=== PATIENT | male | born 1965 | race African-American/Black ===

== ENCOUNTER → 2017-05-22 | Outpatient (CLI) | payer BC | END | disposition home or self-care (01) | LOC: US 14:40 | DX: M79.89 Other specified soft tissue disorders (principal) | CPT/HCPCS: 93971 ==

== ENCOUNTER → 2018-01-14 | Outpatient (CLI) | payer BC ==
[2017-08-04 10:29] VITALS: BP 150/77
[~2018-01-14] MED LIST: ASPI325T8 PO; ATOR20TA58 PO; CARV6.252 PO; CEFP100T PO; DULA0.75 SQ; GABA-585 PO; GABA300C8 PO; GADOBUTROL 10 MMOL/10 ML VIAL IV ONE; GLIM2TAB PO; LOSA1TAB25 PO; PROAIR HFA8.5 GM IH; SITA1TAB11 PO; SITA1TAB7 PO
[2018-01-14 15:46] LABS: CREATININE 1.5 mg/dL (0.7-1.3); GFR 59.2
--- NOTE | 2018-01-14 16:58 | RAD ---
EXAMINATION: Magnetic resonance imaging (MRI) of the brain and orbits without and with contrast 01/14/2018 2:45 PM HISTORY: Left eye visual deficits. History of fall,. Left-sided occipital headaches. TECHNIQUE: Multiplanar multi-weighted MRI of the brain and orbits was performed without and with intravenous contrast using the brain and orbits protocol. Contrast information: 10 mL Gadolinium based contrast COMPARISON: None available. FINDINGS: The scalp and calvarium are normal. The superior sagittal sinus demonstrates normal venous flow. The corpus callosum is normal in shape and signal intensity. The posterior fossa is unremarkable. The pituitary and sella are normal. The brainstem and craniocervical junction are unremarkable. Globes are spherical and contour. No evidence for lens dislocation. There is mild straightening of the optic nerves. Optic nerves and nerve sheath complexes appear normal. No abnormal signal intensity is visualized. Extraocular muscles are intact. There is no suspicious enhancement identified. Optic chiasm is normal in appearance. No intraconal or extraconal masses are visualized. Diffusion weighted images reveal no hyperintensities to suggest acute cerebral infarction. The susceptibility weighted sequences reveal no evidence of acute or chronic hemorrhage. The ventricles are normal in size and position without evidence of hydrocephalus. Few scattered foci of T2/FLAIR signal hyperintensity in the periventricular white matter is compatible with age-related degenerative changes. There are no areas of abnormal contrast enhancement. The paranasal sinuses are normal. Mild mucosal thickening is noted involving the maxillary sinuses and ethmoid air cells. Normal flow voids are demonstrated in the carotid arteries and basilar artery. IMPRESSION: 1. No evidence for acute or subacute ischemia. 2. No significant abnormalities identified involving the orbits. Electronically signed by: Lia Jacob MD (01/14/2018 4:55 PM) [facility]
== END | disposition home or self-care (01) ==
LOC: MRI 14:53
PROVIDERS: ATTEND Internal Medicine Hematology & Oncology
DX: M54.81 Occipital neuralgia (principal); J32.2 Chronic ethmoidal sinusitis; I13.0 Hypertensive heart and chronic kidney disease with heart failure and stage 1 through stage 4 chronic kidney disease, or unspecified chronic kidney disease; E11.22 Type 2 diabetes mellitus with diabetic chronic kidney disease; I50.22 Chronic systolic (congestive) heart failure; N18.2 Chronic kidney disease, stage 2 (mild); Z87.891 Personal history of nicotine dependence; Z86.2 Personal history of diseases of the blood and blood-forming organs and certain disorders involving the immune mechanism; Z85.6 Personal history of leukemia
CPT/HCPCS: 36415; 70543; 70553; 82565; A9585

== ENCOUNTER 2018-10-23 08:20 | Outpatient (CLI) | payer BC ==
[2018-10-23] VITALS (17 sets, daily range): BP systolic 129–146; BP diastolic 71–91
[~2018-10-23] VITALS: Ht 180.3 cm; Wt 113.4 kg
[~2018-10-23 08:20] MED LIST changes: +ALBU2.5V8 IH; +CARV6.2511 PO; -CARV6.252 PO; +GABA300C18 PO; -GABA300C8 PO; -GADOBUTROL 10 MMOL/10 ML VIAL IV ONE; -PROAIR HFA8.5 GM IH
[2018-10-23 09:55] LABS: PROTHROMBIN TIME PATIENT 12.7 SEC (11.7-14.0)
[2018-10-23 10:00] LABS: CALCIUM 9.1 mg/dL (8.5-10.1); CREATININE 1.9 mg/dL (0.7-1.3); GFR 44.9; POTASSIUM 4.5 mmol/L (3.5-5.1)
--- NOTE | 2018-10-23 10:17 | CARD ---
MR#: [id number] Date of Study: 10/23/2018 Ordering Physician: MANNY DAVENPORT, Referring Physician: MANNY DAVENPORT, Tech: Regi Barnett APPROVED REPORT EXAM: Two-dimensional and M-mode echocardiogram with Doppler and color Doppler. Other Information Quality : GoodHR: 76bpm INDICATION Hypertension/HCVD RISK FACTORS Hypertension Hyperlipidemia Diabetes 2D DIMENSIONS RVDd2.9 (2.9-3.5cm)Left Atrium(2D)4.3 (1.6-4.0cm) IVSd1.2 (0.7-1.1cm)Aortic Root(2D)3.2 (2.0-3.7cm) LVDd5.9 (3.9-5.9cm)LVOT Diameter2.2 (1.8-2.4cm) PWd1.3 (0.7-1.1cm)LVDs4.9 (2.5-4.0cm) FS (%) 18.3 %SV65.6 ml LVEF(%)37.3 (>50%) Aortic Valve AoV Peak Clayton.135.7cm/sAoV VTI26.0cm AO Peak GR.7.4mmHgLVOT Peak Clayton.106.0cm/s AO Mean GR.5mmHgAVA (VMAX)3.08cm2 Mitral Valve MV E Cworubtg93.5cm/sMV DECEL SURT502dc MV A Rjggvcek53.5cm/sE/A Ratio0.8 Pulmonary Valve PV Peak Yyoupgpf88.5cm/s Tricuspid Valve TR P. Qvalagal742vt/sRAP WXATXTQP8ljRt TR Peak Gr.43mxOnRNRU11ipPp Pulmonary Vein S1 Yflsvjcz36.3cm/sD2 Ahyrntoj08.3cm/s PVa bxczcsci708mjgo LEFT VENTRICLE The Left Ventricle is borderline dilated. There is moderate concentric left ventricular hypertrophy. The left ventricular systolic function is moderately decreased. EF 35% There is mild global hypokines is of the left ventricle. Transmitral Doppler flow pattern is Grade I-abnormal relaxation pattern. RIGHT VENTRICLE The right ventricle is normal size. There is normal right ventricular wall thickness. The right ventr icular systolic function is normal. ATRIA The left atrium size is normal. The right atrium size is normal. Cannot rule out PFO per color Dopple r. AORTIC VALVE The aortic valve is normal in structure and function. Doppler and Color Flow revealed no significant aortic regurgitation. There is no significant aortic valvular stenosis. MITRAL VALVE The mitral valve is thickened but opens well. There is no evidence of mitral valve prolapse. There is no mitral valve stenosis. Doppler and Color-flow revealed trace mitral regurgitation. TRICUSPID VALVE The tricuspid valve is normal in structure and function. Doppler and Color Flow revealed trace tricus pid regurgitation with an estimated PAP of 37 mmHg. There is no tricuspid valve prolapse or vegetatio n. There is no tricuspid valve stenosis. PULMONIC VALVE The pulmonary valve is normal in structure and function. Doppler and Color Flow revealed trace pulmon ic valvular regurgitation. There is no pulmonic valvular stenosis. GREAT VESSELS The aortic root is normal in size. The IVC is normal in size and collapses >50% with inspiration. PERICARDIAL EFFUSION There is no evidence of significant pericardial effusion. Critical Notification Critical Value: No <Conclusion> The left ventricular systolic function is moderately decreased. EF 35% There is mild global hypokinesis of the left ventricle. Cannot rule out PFO per color Doppler. Signed by : Erasto Huffman, Electronically Approved : 10/23/2018 10:16:56
[2018-10-23 10:55] LABS: BASO # 0.1 x10^3/uL (0.0-0.2); BASO % 0 % (0-3); EOS # 0.4 x10^3/uL (0.0-0.7); EOS % 1 % (0-3); HEMATOCRIT 36.2 % (39.0-53.0); HEMOGLOBIN 11.8 g/dL (13.0-17.5); LYMPH # 26.7 x10^3/uL (1.0-4.8); LYMPH % 76 % (24-48); MEAN CORPUSCULAR HEMOGLOBIN 26 pg (25-35); MEAN CORPUSCULAR HGB CONC 33 g/dL (31-37); MEAN CORPUSCULAR VOLUME 80 fL (79-100); MONO # 1.6 x10^3/uL (0.0-1.1); MONO % 5 % (0-9); NEUT # 6.6 x10^3uL (1.8-7.7); NEUT % 19 % (31-73); PLATELET COUNT 212 x10^3/uL (140-400); RED BLOOD COUNT 4.53 x10^6/uL (4.30-5.70); RED CELL DISTRIBUTION WIDTH 17.2 % (11.5-14.5); WHITE BLOOD COUNT 35.4 x10^3/uL (4.0-11.0)
[2018-10-23] MEDS ORDERED: LIDOCAINE 1% Multi-Dose 20 ML VIAL. ONE (11:16)
[2018-10-23] MEDS ORDERED: IODIXANOL 320 MG/ML 100 ML VIAL. ONE ×2 (11:16→12:23)
[2018-10-23] MEDS ORDERED: HEPARIN for ARTERIAL LINE 1,500 ML ONE (11:17)
--- NOTE | 2018-10-23 11:26 | NUR ---
Pt found to have WBC of 35.1 and elevated BUN and creatinine. Dr Stiles informed and will speak to pt.
[2018-10-23] MEDS ORDERED: LIDOCAINE 1% PF 2 ML VIAL. ONE (11:38)
[2018-10-23 11:45] LABS: CHOLESTEROL/HDL RATIO 6.7
[2018-10-23] MEDS ORDERED: HEPARIN for IV BOLUS 10,000 UNIT/10 ML VIAL. ONE (11:47)
[2018-10-23] MEDS ORDERED: VERAPAMIL 5 MG/2 ML VIAL. ONE (11:47)
[2018-10-23] MEDS ORDERED: fentaNYL PF VIAL 100 MCG/2 ML VIAL ONE (11:47)
[2018-10-23] MEDS ORDERED: MIDAZOLAM HCL/PF 2 MG/2 ML VIAL. ONE (11:47)
[2018-10-23] MEDS ORDERED: NITROGLYCERIN 200 MCG/2 ML SYRINGE FOR CATH/VASC LAB. ONE (11:47)
[2018-10-23] MEDS ORDERED: CONTRAST GIVEN. MC PRN (12:00)
[2018-10-23] MEDS ORDERED: NITROGLYCERIN 200 MCG/2 ML SYRINGE FOR CATH/VASC LAB. IART ONE (12:00)
[2018-10-23] MEDS ORDERED: IODIXANOL 320 MG/ML 100 ML VIAL. IART ONE (12:00)
[2018-10-23] MEDS ORDERED: VERAPAMIL 5 MG/2 ML VIAL. IART ONE (12:00)
[2018-10-23] MEDS ORDERED: fentaNYL PF VIAL 100 MCG/2 ML VIAL IV ONE (12:00)
[2018-10-23] MEDS ORDERED: LIDOCAINE 1% PF 2 ML VIAL. INJ ONE (12:00)
[2018-10-23] MEDS ORDERED: MIDAZOLAM HCL/PF 2 MG/2 ML VIAL. IV ONE (12:00)
[2018-10-23] MEDS ORDERED: HEPARIN for IV BOLUS 10,000 UNIT/10 ML VIAL. IART ONE (12:00)
[2018-10-23] MEDS ORDERED: BIVALIRUDIN 250 MG VIAL. IV ONE ×2 (12:13→12:30)
[2018-10-23] MEDS ORDERED: PRASUGREL 10 MG TABLET. ONE (12:36)
[2018-10-23] MEDS ORDERED: PRASUGREL 10 MG TABLET. PO ONE (12:45)
[2018-10-23] MEDS ORDERED: ASPIRIN 325 MG TABLET PO ONE (12:45)
[2018-10-23] MEDS ORDERED: NITROGLYCERIN SUBLINGUAL 0.4 MG BOTTLE OF 25. SL PRN (13:00)
[2018-10-23] MEDS ORDERED: ACETAMINOPHEN 325 MG TABLET. PO PRN (13:00)
[2018-10-23] MEDS ORDERED: IV 1/2 NORMAL SALINE 1,000 ML IV SCH (13:00)
[2018-10-23] MEDS ORDERED: 0.9 % SODIUM CHLORIDE 10 ML DISP.SYRIN. IV PRN (13:00)
--- NOTE | 2018-10-23 13:00 | PDOC ---
MODERATE SEDATION ASSESSMENT RISKS/ALTERNATIVES Risks/Alternatives Risks and alternatives of this type of sedation and procedure discussed with: RISK/ALTERNATIVES: Patient H & P ON CHART H & P H & P on chart and reviewed for co-morbid conditions and appropriate labs. H&P ON CHART: Yes STATUS PREG STATUS ASSESSED: N/A MEDS/ALLERGIES REVIEWED Meds/Allergies Reviewed Medications and Allergies including time and route of recently administered narcotics and sedatives. MEDS/ALLERGIES REVIEWED: Yes ASA RATING ASA RATING: II AIRWAY ASSESSMENT Airway Assessment Airway patency, oral function limitations, presence of caps, crowns, dentures, partials, and ability to extend neck assessed. AIRWAY ASSESSMENT: Yes MALLAMPATI SCORE MALLAMPATI SCORE: II PRE-SEDATION ASSESSMENT PRE-SEDATION ASSESSMENT: Yes MANNY DAVENPORT MD Oct 23, 2018 13:00
--- NOTE | 2018-10-23 13:11 | CARD ---
MR#: [id number] Date of Study: 10/23/2018 Ordering Physician: MANNY STILES, Referring Physician: MANNY STILES Tech: RT Canelo (R) APPROVED REPORT Technologist: RT Canelo (R) Nurse: Sarah Balderas RN Procedure(s) performed: 1. Left heart catheterization and selective coronary angiography via right t ransradial approach 2. Successful PCI/drug eluting stents placement to the left anterior descending artery Fluoro time: 15.7 mins Dose:[id number] Contrast: 191cc Moderate sedation: 38 Minutes INDICATION The indication(s) include : unstable angina . PROCEDURE NARRATIVE After explaining the risks, benefits and alternative options, informed consent was obtained from [place] ent. Patient was brought to the cardiac Strike War[employer] Officer and right wrist was prepped and draped in the usual fashion after confirming a positive modified Ger's test. Arterial access was obtained in the righ t radial artery and a 6 Eritrean sheath was inserted. 6 Eritrean Eduardo catheter was used to perform alexandro ective angiography of the left and right coronary arteries. Left ventriculography was not performed s ric 2-D echo earlier today showed LVEF 35% and patient had elevated creatinine. The following findi ngs were noted. FINDINGS 1. Hemodynamics: Left ventricular end-diastolic pressure of 14 mmHg. No pullback gradient across th e aortic valve. 2. Coronary angiography: a. The left main coronary artery arose from the left sinus of Valsalva, gave rise to the left anteri or descending and left circumflex arteries and did not show any significant stenosis. b. The left anterior descending artery showed tandem 90% and 80% stenoses in the midsegment. c. The left circumflex artery did not show any significant stenosis. d. The right coronary artery was a large and dominant vessel arising from the right sinus of Valsalv a that did not show any significant stenosis. INTERVENTION The left main coronary artery was engaged with a 6 Eritrean XB 3.5 guide catheter and the stenoses in t he midsegment of the left anterior descending artery with crossed with a 0.014 inch [employer] / [employer] Pro water g uidewire. The lesions were predilated with a 3.0 x 15 mm trek balloon following which this was succes sfully treated with overlapping 3.5 x 38 and 4.0 x 15 mm Xience Alpine drug-eluting stents. Follow-up angiography showed resolution of the stenosis to 0% with MARYLU-3 distal flow. Patient tolerated the p rocedure well. Hemostasis was achieved using TR band. There were no immediate complications. Syntax Score If Not STEMI or NSTE-ACS, Syntax Score: Unknown MARYLU Flow MARYLU Flow (Pre-Intervention): MARYLU-2 MARYLU Flow (Post-Intervention): MARYLU-3 Conclusion 1. Severe single-vessel coronary artery disease involving the left anterior descending artery 2. Successful PCI/drug eluting stents placement to the left anterior descending artery 3. LVEF 35% on 2-D echocardiogram done earlier today Recommendations 1. Aspirin 325 mg daily 2. Effient 10 mg daily for preferably one year 3. Cardiovascular risk factor modification 4. Optimization of medical therapy for cardiomyopathy and repeat 2-D echo in 3 months to evaluate th e need for AICD implantation Signed by : Manny Stiles, Electronically Approved : 10/23/2018 13:10:40
[2018-10-23 13:23] LABS: % BANDS 1 % (0-9); % MONOS 3 % (0-10); % SEGS 12 % (35-66); PLT ESTIMATE ADEQUATE (ADEQUATE)
[2018-10-23 13:24] LABS: ANISOCYTOSIS SLIGHT; MICROCYTOSIS SLIGHT; POLYCHROMASIA SLIGHT
[2018-10-23 13:27] LABS: % LYMPHS 84 % (24-48)
--- NOTE | 2018-10-23 15:29 | NUR ---
Called prescriptions to [facility] [address] Atorvastatin 40mg PO daily #30 with 3 refills, Aspirin 325mg PO daily #30 with 3 refills, Plavix 75mg PO daily #30 with 3 refills. Follow up appts have been scheduled for patient: Dr. Stiles December 09, [address] Uribe November 12, 2018 at 0930am. Patient notified of both appointments.
[2018-10-23] MEDS ORDERED: CLOP75TA PO (16:29)
[2018-10-23] MEDS ORDERED: ASPI325T8 PO (16:30)
[2018-10-23] MEDS ORDERED: ATOR40TA59 PO (16:31)
--- NOTE | 2018-10-23 16:57 | NUR ---
Discharge Note: ISIDRO ZIEGLER Discharge instructions and discharge home medications reviewed with Spouse and a copy given. All questions have been answered and understanding verbalized. Patient tolerated lunch with no issues. The following instructions and handouts were given: Moderate sedation, radial site care and cholesterol/fat diet. Discontinued lines and drains: Left PIV, dressing clean dry intact. Patient discharged to home with via wheelchair to private vehicle.
[2018-10-23] MEDS ORDERED: ATORVASTATIN CALCIUM 40 MG TABLET. PO SCH (21:00)
[2018-10-24] MEDS ORDERED: PRASUGREL 10 MG TABLET. PO SCH (08:00)
[2018-10-24] MEDS ORDERED: ASPIRIN ENTERIC COATED 325 MG TABLET.DR. PO SCH (08:00)
[2018-10-24] MEDS ORDERED: CLOPIDOGREL BISULFATE 75 MG TABLET PO SCH (08:00)
== END 2018-10-23 17:40 | disposition home or self-care (01) ==
LOC: ECHO 08:20
PROVIDERS: ATTEND Internal Medicine Cardiovascular Disease
DX: I25.110 Atherosclerotic heart disease of native coronary artery with unstable angina pectoris (principal); I11.0 Hypertensive heart disease with heart failure; I50.9 Heart failure, unspecified; E11.9 Type 2 diabetes mellitus without complications; E78.5 Hyperlipidemia, unspecified; N52.9 Male erectile dysfunction, unspecified; Z86.73 Personal history of transient ischemic attack (TIA), and cerebral infarction without residual deficits; Z79.82 Long term (current) use of aspirin; Z98.890 Other specified postprocedural states; Z79.84 Long term (current) use of oral hypoglycemic drugs
CPT/HCPCS: 36415; 80048; 80061; 85025; 85610; 93306; 93458; 99152; 99153; C1725; C1769; C1874; C1887; C1892; C9600; J0583; J1644; J2250; J3010; J3490; Q9967; 85007; 92928; C1713

== ENCOUNTER 2018-11-29 10:00 | Emergency (ER) | payer BC ==
[~2018-11-29] VITALS: Ht 180.3 cm; Wt 112.9 kg
[~2018-11-29 10:00] MED LIST changes: +ATOR40TA59 PO; +CARV3.12 PO; +CLOP75TA PO; +MOXI3DRO2 OP; +PRED5DRO16 LEFTEYE
[2018-11-29 10:05] VITALS: BP 179/80
--- NOTE | 2018-11-29 10:52 | PHYS DOC ---
Past Medical History Past Medical History: CAD, Diabetes-Type II, Glaucoma, High Cholesterol, Hypertension, Stroke Additional Past Medical Histor: POSSIBLE LEUKEMIA, obesity Past Surgical History: Other Additional Past Surgical Histo: BILAT SHOULDER,BILAT EYE, CARDIAC STENT, BILAT WRIST, Alcohol Use: Occasionally Drug Use: None Adult General Chief Complaint Chief Complaint: EYE PROBLEMS [facility] HPI Patient is a 53 year old male that presents with nose pain. Patient states that he had a nosebleed yesterday and came to the ER and had a Rhino Rocket put in. He states that the Rhino Rocket is increasing nose pressure and causing pain. He says also is causing pressure and eye watering in his right eye. Rates his pain as 7 out of 10 in severity and throbbing and sharp. Has not tried any medicine a t home. Review of Systems Review of Systems Constitutional: Denies fever or chills [] Eyes: Denies change in visual acuity, redness. Report eye pressure. HENT: Reports R nare pain. Respiratory: Denies cough or shortness of breath [] Cardiovascular: No additional information not addressed in HPI [] GI: Denies abdominal pain, nausea, vomiting, bloody stools or diarrhea [] : Denies dysuria or hematuria [] Musculoskeletal: Denies back pain or joint pain [] Integument: Denies rash or skin lesions [] Neurologic: Denies headache, focal weakness or sensory changes [] Endocrine: Denies polyuria or polydipsia [] Complete systems were reviewed and found to be within normal limits, except as documented in this note. Allergies Allergies Allergies Coded Allergies Type Severity Reaction Last Updated Verified No Known Drug Allergies 11/03/13 No Physical Exam Physical Exam Constitutional: Well developed, well nourished, no acute distress, non-toxic appearance. [] HENT: Normocephalic, atraumatic, bilateral external ears normal, oropharynx moist, no oral exudates, nose has Rhino Rocket in R nare, dried blood in R nare. Eyes: PERRLA, EOMI, conjunctiva normal, no discharge. [] Neck: Normal range of motion, no tenderness, supple, no stridor. [] Cardiovascular:Heart rate regular rhythm, no murmur [] Lungs & Thorax: Bilateral breath sounds clear to auscultation [] Abdomen: Bowel sounds normal, soft, no tenderness, no masses, no pulsatile masses. [] Skin: Warm, dry, no erythema, no rash. [] Extremities: No tenderness, no cyanosis, no clubbing, ROM intact, no edema. [] Neurologic: Alert and oriented X 3, normal motor function, normal sensory function, no focal deficits noted. [] Psychologic: Affect normal, judgement normal, mood normal. [] Current Patient Data Vital Signs Vital Signs Date Time Temp Pulse Resp B/P (MAP) Pulse Ox O2 Delivery O2 Flow Rate FiO2 11/29/18 10:05 97.8 92 20 179/80 (113) 98 Room Air 97.8 EKG EKG [] Radiology/Procedures Radiology/Procedures Removed Rhino Rocket from R nare. Course & Med Decision Making Course & Med Decision Making Pertinent Labs and Imaging studies reviewed. (See chart for details) Patient came to ER wanting Rhino rocket removed. Rhino rocket removed and nose is not bleeding. After removal nose pressure and eye pressure improved. 10 minutes after Rhino rocket removal nose started slowly oozing blood. Discussed with patient the need to put Rhino rocket back in. Patient declined and states he will hold his nose at home and try that because he does not want a rhino rocket in. Discussed the risk of not putting rhino rocket back in and how the bleeding could increase. Will discharge patient home as he requested. Dragon Disclaimer Dragon Disclaimer This electronic medical record was generated, in whole or in part, using a voice recognition dictation system. Departure Departure Impression: Primary Impression: Encounter for removal of nasal packing Disposition: HOME, SELF-CARE Condition: STABLE Referrals: DENTON HORTON MD (PCP) Patient Instructions: Nosebleed Additional Instructions: Thank you for visiting [facility]. We appreciate you trusting us with your care. If any additional problems come up don't hesitate to return to visit us. Please follow up with your primary care provider so they can plan additional care if needed and know about the problem that you had. If symptoms worsen come back to the Emergency Department. Any concerning symptoms that start such as chest pain, shortness of air, weakness or numbness on one side of the body, running high fevers or any other concerning symptoms return to the ER. As we discussed please follow up with Dr. Horton regarding your blood pressure. NIC TIAN APRN 28, 2019 10:52
== END 2018-11-29 10:56 | disposition home or self-care (01) ==
LOC: ER 10:00
DX: Z48.00 Encounter for change or removal of nonsurgical wound dressing (principal); I25.10 Atherosclerotic heart disease of native coronary artery without angina pectoris; E78.00 Pure hypercholesterolemia, unspecified; I10 Essential (primary) hypertension; Z86.73 Personal history of transient ischemic attack (TIA), and cerebral infarction without residual deficits; E11.39 Type 2 diabetes mellitus with other diabetic ophthalmic complication; H40.9 Unspecified glaucoma; H42 Glaucoma in diseases classified elsewhere
CPT/HCPCS: 99281

== ENCOUNTER → 2019-03-30 | Outpatient (CLI) | payer BC ==
--- NOTE | 2019-03-30 12:06 | CARD ---
MR#: [id number] Date of Study: 03/30/2019 Ordering Physician: MANNY STILES, Referring Physician: MANNY STILES Tech: Regi Barnett APPROVED REPORT EXAM: Two-dimensional and M-mode echocardiogram with Doppler and color Doppler. Other Information Quality : GoodHR: 82bpm INDICATION Cardiac Disease: CAD RISK FACTORS Hypertension Hyperlipidemia Diabetes 2D DIMENSIONS RVDd2.9 (2.9-3.5cm)Left Atrium(2D)4.8 (1.6-4.0cm) IVSd1.2 (0.7-1.1cm)Aortic Root(2D)3.3 (2.0-3.7cm) LVDd5.9 (3.9-5.9cm)LVOT Diameter2.2 (1.8-2.4cm) PWd1.6 (0.7-1.1cm)LVDs5.1 (2.5-4.0cm) FS (%) 13.3 %SV48.9 ml LVEF(%)28.0 (>50%) Aortic Valve AoV Peak Clayton.143.8cm/sAoV VTI29.1cm AO Peak GR.8.3mmHgLVOT Peak Clayton.71.4cm/s LVOT VTI 15.26cmAO Mean GR.5mmHg TANO (VMAX)1.24so4BOJ (VTI)1.97cm2 Mitral Valve MV E Xoxepaop66.9cm/sMV DECEL UNWS512qv MV A Giijuzpo35.4cm/sMV E Mean Gr.2mmHg MV ORF19nmX/A Ratio1.3 MVA (PHT)3.98cm2 TDI E/Lateral E'14.0E/Medial E'14.3 Pulmonary Valve PV Peak Dujoureu675.3cm/sPV Peak Grad.6mmHg Tricuspid Valve TR P. Tzogebxy827jt/sRAP FRONKLOX6crKl TR Peak Gr.54ihYvLCHI70djEp Pulmonary Vein S1 Gtcrwakx79.8cm/sD2 Vqlkfjyu59.3cm/s PVa grwvybly403llmf LEFT VENTRICLE The Left Ventricle is borderline dilated. There is mild to moderate concentric left ventricular hyper trophy. The left ventricular systolic function is moderately impaired. The Ejection Fraction is 30-35 %. There is global hypokinesis of the left ventricle. Transmitral Doppler flow pattern is Grade II-ps eudonormal filling dynamics. RIGHT VENTRICLE The right ventricle is normal size. There is normal right ventricular wall thickness. The right ventr icular systolic function is normal. ATRIA The left atrium is mildly dilated. The right atrium size is normal. The interatrial septum bows towar ds the right. AORTIC VALVE The aortic valve is normal in structure and function. Doppler and Color Flow revealed trace aortic re gurgitation. There is no significant aortic valvular stenosis. MITRAL VALVE The mitral valve is normal in structure and function. There is no evidence of mitral valve prolapse. There is no mitral valve stenosis. Doppler and Color-flow revealed trace mitral regurgitation. TRICUSPID VALVE The tricuspid valve is normal in structure and function. Doppler and Color Flow revealed trace to mil d tricuspid regurgitation with an estimated PAP of 53 mmHg. There is no tricuspid valve stenosis. PULMONIC VALVE The pulmonary valve is normal in structure and function. Doppler and Color Flow revealed mild to mode rate pulmonic valvular regurgitation. There is no pulmonic valvular stenosis. GREAT VESSELS The aortic root is normal in size. The IVC is normal in size and collapses >50% with inspiration. PERICARDIAL EFFUSION There is no evidence of significant pericardial effusion. Critical Notification Critical Value: No <Conclusion> The left ventricular systolic function is moderately impaired. The Ejection Fraction is 30-35%. Trace mitral regurgitation. Trace to mild tricuspid regurgitation with an estimated PAP of 53 mmHg. There is no evidence of significant pericardial effusion. Signed by : Manny Stiles, Electronically Approved : 03/30/2019 12:06:07
== END | disposition home or self-care (01) ==
LOC: ECHO 10:22
PROVIDERS: ATTEND Internal Medicine Cardiovascular Disease
DX: I08.8 Other rheumatic multiple valve diseases (principal); I25.10 Atherosclerotic heart disease of native coronary artery without angina pectoris; I10 Essential (primary) hypertension; E78.5 Hyperlipidemia, unspecified; E11.9 Type 2 diabetes mellitus without complications
CPT/HCPCS: 93306

== ENCOUNTER 2020-03-23 11:00 | Inpatient (IN) | payer BC ==
[~2020-03-23] VITALS: Ht 180.3 cm; Wt 116.2 kg
[~2020-03-23 11:00] MED LIST changes: +BRIM5DRO2 OP; +FURO20TA3 PO; +HYDR12.58 PO; +IBRU140C PO; +LOTE5GEL EACHEYE; -MOXI3DRO2 OP; +MOXI3DRO22 OP
--- NOTE | 2020-03-23 11:46 | PHYS DOC ---
Past Medical History Past Medical History: Diabetes-Type II, Hypertension, Other Additional Past Medical Histor: leukemia, hx of lump in the neck Past Surgical History: No Surgical History Additional Past Surgical Histo: BILAT SHOULDER,BILAT EYE, CARDIAC STENT, BILAT WRIST, Smoking Status: Never Smoker Alcohol Use: None Drug Use: None General Adult EDM: Chief Complaint: GENERALIZED BODY ACHES HPI: HPI: Patient is a 54 year old male with history of diabetes type 2, hypertension, leukemia currently on Imbruvica who presents to the ED today to be evaluated for body aches, nosebleeds and diarrhea since Friday. Patient denies any abdominal pain, fever, coughing or congestion. He is noted to be short of air and states this is a chronic issue. Denies any chest pain. Review of Systems: Review of Systems: Constitutional: Reports body aches. Denies fever or chills. [] Eyes: Denies change in visual acuity. [] HENT: Denies nasal congestion or sore throat. [] Respiratory: Denies cough or shortness of breath. [] Cardiovascular: Denies chest pain or edema. [] GI: Reports diarrhea. Denies abdominal pain, nausea, vomiting, bloody stools : Denies dysuria. [] Musculoskeletal: Denies back pain or joint pain. [] Integument: Denies rash. [] Neurologic: Denies headache, focal weakness or sensory changes. [] Endocrine: Denies polyuria or polydipsia. [] Lymphatic: Denies swollen glands. [] Psychiatric: Denies depression or anxiety. [] Heart Score: HEART Score for Chest Pain: HEART Score for Chest Pain Response (Comments) Value History Slighlty/Non-Suspicious 0 ECG Normal 0 Age >45 - < 65 1 Risk Factors >3 Risk Factors or Hx CAD 2 Troponin >1-<3x Normal Limit 1 Total 4 Risk Factors: Risk Factors: DM, Current or recent (<one month) smoker, HTN, HLP, family history of CAD, obesity. Risk Scores: Score 0 - 3: 2.5% MACE over next 6 weeks - Discharge Home Score 4 - 6: 20.3% MACE over next 6 weeks - Admit for Clinical Observation Score 7 - 10: 72.7% MACE over next 6 weeks - Early Invasive Strategies Current Medications: Current Medications Medications (Trade) Dose Ordered Sig/Irina Start Time Stop Time Status Last Admin Dose Admin Morphine Sulfate (Morphine Sulfate) 4 mg PRN Q15MIN PRN 03/23/20 11:45 03/24/20 11:44 Allergies: Allergies: Allergies Coded Allergies Type Severity Reaction Last Updated Verified No Known Drug Allergies 11/03/13 No Physical Exam: PE: Constitutional: Well developed, well nourished, no acute distress, non-toxic appearance. [] HENT: Normocephalic, atraumatic, bilateral external ears normal, oropharynx nico st, no oral exudates, nose normal. [] Eyes: PERRLA, EOMI, conjunctiva normal, no discharge. [] Neck: Normal range of motion, no tenderness, supple, no stridor. [] Cardiovascular:Heart rate regular rhythm, no murmur [] Lungs & Thorax: Bilateral breath sounds clear to auscultation [] Abdomen: Bowel sounds normal, soft, no abdominal tenderness, no masses, no pulsatile masses. [] Skin: Warm, dry, no erythema, no rash. [] Back: No tenderness, no CVA tenderness. [] Extremities: No tenderness, no cyanosis, no clubbing, ROM intact, no edema. [] Neurologic: Alert and oriented X 3, normal motor function, normal sensory function, no focal deficits noted. [] Psychologic: Affect normal, judgement normal, mood normal. [] EKG: EK interpreted by Dr. Kraft sinus rhythm HR 79 no STEMI[] Radiology/Procedures: Radiology/Procedures: []PROCEDURE: PORTABLE CHEST 1V EXAM: CHEST 1 VIEW History: Shortness of breath COMPARISON: 05/01/2019 TECHNIQUE: Single portable radiograph of the chest FINDINGS: The cardiac silhouette is unremarkable. Focal airspace opacity or nodule identified in the right lung base measuring 1 cm. The costophrenic sulci are clear and well demarcated. IMPRESSION: A 1 cm infiltrate or nodule right lung base. Electronically signed by: Mac Bryan MD (03/23/2020 12:39 PM) [id number] DICTATED and SIGNED BY: MAC BRYAN MD DATE: 03/23/20 [id number] 0 PROCEDURE: CT ABD PELV W/ IV CONTRST ONLY CT scan abdomen and pelvis with contrast 03/23/2020 CLINICAL HISTORY: Diarrhea. Leukemia patient. TECHNIQUE: After the intravenous administration of 60 cc of Omnipaque 300, contiguous, 5 mm axial sections were obtained through the abdomen and pelvis. One or more of the following individualized dose reduction techniques were utilized for this study: 1. Automated exposure control. 2. Adjustment of the mA and/or kV according to patient size. 3. Use of iterative reconstruction technique. FINDINGS: Images through the lung bases demonstrate multiple small focal areas of infiltrate scattered throughout the right middle lobe and both lower lobes. These measure 1 to 3.5 cm in size. Minimal dependent subsegmental atelectasis is seen bilaterally. There is a very small pericardial effusion noted, anteriorly. The liver parenchyma has a decreased attenuation consistent with fatty infiltration. The spleen, pancreas, adrenal glands and kidneys are within normal limits. Atherosclerotic calcification abdominal aorta is seen. The abdominal aorta tapers normally. The gallbladder slightly contracted. No free fluid or free air is seen within the abdomen. Air and stool are seen throughout the colon. There is no evidence of bowel obstruction. The appendix is well-visualized and is within normal limits. Images through the pelvis demonstrate the urinary bladder distended with urine. Calcifications are seen within the pelvis consistent with phleboliths. A fluid is seen. No inflammatory changes are seen involving the colon. No abnormal fluid collection is noted. Minimal S-shaped curvature of the thoracolumbar spine is seen. Degenerative changes are seen involving the lower thoracic and throughout the lumbar spine along with both hips. IMPRESSION: 1. Multiple small focal areas of infiltrate are seen involving the right middle lobe and scattered throughout both lower lobes. 2. . No acute abnormality is seen involving the abdomen or pelvis. Electronically signed by: Logan Gipson MD (03/23/2020 1:00 PM) [id number] DICTATED and SIGNED BY: LOGAN GIPSON MD DATE: 03/23/20 [id number] 0 Course & Med Decision Making: Course & Med Decision Making Pertinent Labs and Imaging studies reviewed. (See chart for details) This is a 54-year-old male patient presenting to the ED today complaining of generalized body aches, nosebleeds and diarrhea since Friday. He has leukemia and is currently on Imbruvica. He stopped taking the medicine today CBC, CMP with nothing really acute. EKG is negative, troponin was 0.122, cardiology was informed and they came to evaluate the patient. They have familiar with this patient. Chest x-ray noted for right lower lobe pneumonia, CT of the abdomen and pelvic also confirmed right lower lobe pneumonia. Patient was given Zosyn and Levaquin in the ED. Spoke with Dr. Mckeon who accepted patient for admission Dragdeandre Disclaimer: Bernie Disclaimer: This electronic medical record was generated, in whole or in part, using a voice recognition dictation system. Departure Departure Impression: Primary Impression: Right lower lobe pneumonia Qualified Codes: J18.9 - Pneumonia, unspecified organism Additional Impressions: Person under investigation for COVID-19 NSTEMI (non-ST elevated myocardial infarction) Disposition: 09 ADMITTED INPT THIS HOSP Condition: STABLE Referrals: DENTON MCKEON MD (PCP) [facility] [employer]IST[employer] Mar 23, 2020 11:46
[2020-03-23 12:10] LABS: BASO # 0.1 x10^3/uL (0.0-0.2); BASO % 1 % (0-3); EOS % 0 % (0-3); HEMATOCRIT 34.7 % (39.0-53.0); HEMOGLOBIN 11.6 g/dL (13.0-17.5); LYMPH # 2.9 x10^3/uL (1.0-4.8); LYMPH % 35 % (24-48); MEAN CORPUSCULAR HEMOGLOBIN 26 pg (25-35); MEAN CORPUSCULAR HGB CONC 33 g/dL (31-37); MEAN CORPUSCULAR VOLUME 79 fL (79-100); MONO # 1.2 x10^3/uL (0.0-1.1); MONO % 14 % (0-9); NEUT # 4.3 x10^3/uL (1.8-7.7); NEUT % 51 % (31-73); PLATELET COUNT 132 x10^3/uL (140-400); RED BLOOD COUNT 4.39 x10^6/uL (4.30-5.70); RED CELL DISTRIBUTION WIDTH 14.9 % (11.5-14.5); WHITE BLOOD COUNT 8.4 x10^3/uL (4.0-11.0)
[2020-03-23] MEDS: MORPHINE SULFATE 4 MG/ML VIAL. IV/SQ PRN ×2 (12:12→18:20)
[2020-03-23 12:22] LABS: CALCIUM 8.2 mg/dL (8.5-10.1); GFR 42.2; POTASSIUM 4.4 mmol/L (3.5-5.1)
[2020-03-23] MEDS ORDERED: IOHEXOL 300 MG/ML 100ML VIAL. IV ONE (12:30)
[2020-03-23 12:33] LABS: ALBUMIN 3.1 g/dL (3.4-5.0); ALBUMIN/GLOBULIN RATIO 0.9 (1.0-1.7); MAGNESIUM 2.1 mg/dL (1.8-2.4); TOTAL BILIRUBIN 0.4 mg/dL (0.2-1.0); TOTAL PROTEIN 6.6 g/dL (6.4-8.2)
[2020-03-23 12:35] LABS: PROTHROMBIN TIME PATIENT 13.4 SEC (11.7-14.0)
--- NOTE | 2020-03-23 12:42 | RAD ---
EXAM: CHEST 1 VIEW History: Shortness of breath COMPARISON: 05/01/2019 TECHNIQUE: Single portable radiograph of the chest FINDINGS: The cardiac silhouette is unremarkable. Focal airspace opacity or nodule identified in the right lung base measuring 1 cm. The costophrenic sulci are clear and well demarcated. IMPRESSION: A 1 cm infiltrate or nodule right lung base. Electronically signed by: Mac Bryan MD (03/23/2020 12:39 PM) [id number]
[2020-03-23] MEDS ORDERED: CONTRAST GIVEN. MC PRN (12:45)
--- NOTE | 2020-03-23 13:03 | RAD ---
CT scan abdomen and pelvis with contrast 03/23/2020 CLINICAL HISTORY: Diarrhea. Leukemia patient. TECHNIQUE: After the intravenous administration of 60 cc of Omnipaque 300, contiguous, 5 mm axial sections were obtained through the abdomen and pelvis. One or more of the following individualized dose reduction techniques were utilized for this study: 1. Automated exposure control. 2. Adjustment of the mA and/or kV according to patient size. 3. Use of iterative reconstruction technique. FINDINGS: Images through the lung bases demonstrate multiple small focal areas of infiltrate scattered throughout the right middle lobe and both lower lobes. These measure 1 to 3.5 cm in size. Minimal dependent subsegmental atelectasis is seen bilaterally. There is a very small pericardial effusion noted, anteriorly. The liver parenchyma has a decreased attenuation consistent with fatty infiltration. The spleen, pancreas, adrenal glands and kidneys are within normal limits. Atherosclerotic calcification abdominal aorta is seen. The abdominal aorta tapers normally. The gallbladder slightly contracted. No free fluid or free air is seen within the abdomen. Air and stool are seen throughout the colon. There is no evidence of bowel obstruction. The appendix is well-visualized and is within normal limits. Images through the pelvis demonstrate the urinary bladder distended with urine. Calcifications are seen within the pelvis consistent with phleboliths. A fluid is seen. No inflammatory changes are seen involving the colon. No abnormal fluid collection is noted. Minimal S-shaped curvature of the thoracolumbar spine is seen. Degenerative changes are seen involving the lower thoracic and throughout the lumbar spine along with both hips. IMPRESSION: 1. Multiple small focal areas of infiltrate are seen involving the right middle lobe and scattered throughout both lower lobes. 2. . No acute abnormality is seen involving the abdomen or pelvis. Electronically signed by: Logan Gipson MD (03/23/2020 1:00 PM) [place] [id number]
[2020-03-23] MEDS ORDERED: PIPERACILLIN/TAZOBACTAM 3.375 GM in IV NORMAL SALINE 50ML 50 ML IV ONE (14:15)
--- NOTE | 2020-03-23 14:37 | PDOC2 ---
BRETT [facility]CG[facility] MANAGER HEMATOLOGY 03/23/20 1437: CARDIAC CONSULT DATE OF CONSULT Date of Consult DATE: 03/23/20 TIME: 14:16 REASON FOR CONSULT Reason for Consult: Elevated troponin REFERRING PHYSICIAN Referring Physician: Erich SOURCE Source: Chart review, Patient HISTORY OF PRESENT ILLNESS HISTORY OF PRESENT ILLNESS This is a pleasant 54 yo male admitted for complains of body aches and diarrhea. Reports that his appetite has been off since Friday and has been having watery stools, not black, since Friday and has not been feeling well with chills but no recorded fever. Denies vomiting and no abdominal pain. Denies any chest pain, JIMENEZ. Negative for increasing leg edema, orthopnea or PND. He has been compliant with his antiplatelet therapy. He has not been taking his cholesterol med. No recent falls or injury. No hospitalization this yr. He notified his PCP and told him to com to ED and was taken off imbruvica this week due to epistacis which resolved after being off it for 3 days. Presently he is not in distress. Consult is for mild troponin elevation and currently EKG is SR without acute changes and no cardiac symptoms. PAST MEDICAL HISTORY Cardiovascular: CAD, CHF, HTN, Hyperlipidemia, Other (ICM) Pulmonary: Pneumonia CENTRAL NERVOUS SYSTEM: Carpal Tunnel Syndrome, CVA, Periperal neuropathy GI: GERD Heme/Onc: Anemia NOS, Cancer (CLL) Hepatobiliary: No pertinent hx Psych: No pertinent hx Musculoskeletal: Osteoarthritis Rheumatologic: No pertinent hx Infectious disease: No pertinent hx ENT: Other (epistaxis) Renal/: Chronic renal insuff (3), Other (hypogonadism) Endocrine: Diabetes (2) PAST SURGICAL HISTORY Past Surgical History: Arthroscopy (shoulder), Other (PCI/NAKUL to LAD, laser eye surgery, CTS release) FAMILY HISTORY Family History: Hypertension SOCIAL HISTORY Smoke: Quit ALCOHOL: none Drugs: None Lives: with Family CURRENT MEDICATIONS CURRENT MEDICATIONS Current Medications Medications (Trade) Dose Ordered Sig/Irina Route PRN Reason Start Time Stop Time Status Last Admin Dose Admin Morphine Sulfate (Morphine Sulfate) 4 mg PRN Q15MIN PRN IV/SQ PAIN GREATER THAN 3/10 03/23/20 11:45 03/24/20 11:44 03/23/20 12:12 Iohexol (Omnipaque 300 Mg/ml) 60 ml 1X ONCE IV 03/23/20 12:30 03/23/20 12:31 DC 03/23/20 12:46 ALLERGIES ALLERGIES: Coded Allergies: No Known Drug Allergies (Unverified , 11/03/13) ROS Review of System 14 point ROS evaluated with pertinent positives noted per HPI PHYSICAL EXAM General: Alert, Oriented X3, Cooperative, No acute distress HEENT: Atraumatic, Mucous membr. moist/pink Lungs: Other (diminished) Heart: Regular rate (SR) Abdomen: Soft Extremities: No cyanosis, Other (1-2+ bilateral LE pitting edema) Skin: No breakdown, No significant lesion Neuro: Normal speech, Sensation intact Psych/Mental Status: Mental status NL, Mood NL MUSCULOSKELETAL: Osteoarthritic changes both hands VITALS/I&O VITALS/I&O: Vital Signs Date Time Temp Pulse Resp B/P (MAP) Pulse Ox O2 Delivery O2 Flow Rate FiO2 03/23/20 12:12 18 95 Room Air 03/23/20 11:43 98.2 87 155/73 (100) 98.2 LABS Lab: Laboratory Tests Test 03/23/20 11:30 White Blood Count 8.4 x10^3/uL (4.0-11.0) Red Blood Count 4.39 x10^6/uL (4.30-5.70) Hemoglobin 11.6 g/dL (13.0-17.5) L Hematocrit 34.7 % (39.0-53.0) L Mean Corpuscular Volume 79 fL (79-100) Mean Corpuscular Hemoglobin 26 pg (25-35) Mean Corpuscular Hemoglobin Concent 33 g/dL (31-37) Red Cell Distribution Width 14.9 % (11.5-14.5) H Platelet Count 132 x10^3/uL (140-400) L Neutrophils (%) (Auto) 51 % (31-73) Lymphocytes (%) (Auto) 35 % (24-48) Monocytes (%) (Auto) 14 % (0-9) H Eosinophils (%) (Auto) 0 % (0-3) Basophils (%) (Auto) 1 % (0-3) Neutrophils # (Auto) 4.3 x10^3/uL (1.8-7.7) Lymphocytes # (Auto) 2.9 x10^3/uL (1.0-4.8) Monocytes # (Auto) 1.2 x10^3/uL (0.0-1.1) H Eosinophils # (Auto) 0.0 x10^3/uL (0.0-0.7) Basophils # (Auto) 0.1 x10^3/uL (0.0-0.2) Prothrombin Time 13.4 SEC (11.7-14.0) Prothrombin Time INR 1.1 (0.8-1.1) Activated Partial Thromboplast Time 35 SEC (24-38) Sodium Level 132 mmol/L (136-145) L Potassium Level 4.4 mmol/L (3.5-5.1) Chloride Level 99 mmol/L (98-107) Carbon Dioxide Level 25 mmol/L (21-32) Anion Gap 8 (6-14) Blood Urea Nitrogen 25 mg/dL (8-26) Creatinine 2.0 mg/dL (0.7-1.3) H Estimated GFR (Cockcroft-Gault) 42.2 BUN/Creatinine Ratio 13 (6-20) Glucose Level 182 mg/dL (70-99) H Lactic Acid Level 1.2 mmol/L (0.4-2.0) Calcium Level 8.2 mg/dL (8.5-10.1) L Magnesium Level 2.1 mg/dL (1.8-2.4) Total Bilirubin 0.4 mg/dL (0.2-1.0) Aspartate Amino Transferase (AST) 23 U/L (15-37) Alanine Aminotransferase (ALT) 20 U/L (16-63) Alkaline Phosphatase 49 U/L (46-116) Creatine Kinase 177 U/L (39-308) Creatine Kinase MB (Mass) 2.2 ng/mL (0.0-3.6) Creatine Kinase MB Relative Index 1.2 % (0-4) Troponin I Quantitative 0.122 ng/mL (0.000-0.055) Total Protein 6.6 g/dL (6.4-8.2) Albumin 3.1 g/dL (3.4-5.0) L Albumin/Globulin Ratio 0.9 (1.0-1.7) L Lipase 261 U/L (73-393) Thyroid Stimulating Hormone (TSH) 2.597 uIU/mL (0.358-3.74) Laboratory Tests 03/23/20 11:30 Laboratory Tests 03/23/20 11:30 ECHOCARDIOGRAM ECHOCARDIOGRAM <Conclusion> The left ventricular systolic function is moderately impaired. The Ejection Fraction is 30-35%. Trace mitral regurgitation. Trace to mild tricuspid regurgitation with an estimated PAP of 53 mmHg. There is no evidence of significant pericardial effusion. DATE: 03/30/19 1159 HEART CATH HEART CATH Conclusion 1. Severe single-vessel coronary artery disease involving the left anterior descending artery 2. Successful PCI/drug eluting stents placement to the left anterior descending artery 3. LVEF 35% on 2-D echocardiogram done earlier today Recommendations 1. Aspirin 325 mg daily 2. Effient 10 mg daily for preferably one year 3. Cardiovascular risk factor modification 4. Optimization of medical therapy for cardiomyopathy and repeat 2-D echo in 3 months to evaluate the need for AICD implantation DATE: 10/23/18 1310 ASSESSMENT/PLAN ASSESSMENT/PLAN 1. RML CAP 2. Diarrhea/myalgia 3. Recent Epistaxis 4. CLL: on imbruvica 5. [place] on CKD3: prerenal. Baseline 1.6-1.8 6. Elevated troponin: initial at 0.2, No acute EKG changes, no cardiac symptoms. Suspect demand mediated, type 2 7. PUI 8. CAD: past PCI/NAKUL to LAD, clinically stable 9. ICM: prior EF at 30-35%. He decided not to have AICD last yr 10. HTN: controlled 11. HLP 12. DM2: per PCP 13. Hx of CVA Recommendations Check CK, Will check FLP. Await the latter and will restart stating accordingly TTE if covid negative Continue secondary prevention measures. Hold diuretics for now given his diarrhea episodes. Denies any prior antibiotics. Need to get tested for C-diff ASA.hold plavix for now with his recent epistaxis, could restart if no further recurrence. Restart coreg. Hold ARB for now. Labetolol IV PRN. MANNY DAVENPORT MD 03/24/20 0659: CARDIAC CONSULT ASSESSMENT/PLAN ASSESSMENT/PLAN Patient seen 03/23/20 (late entry). Agree with DRAFTER CIVIL's assessment and plan, RML Pneumonia - Covid test pending Slight trop elevation prob demand ischemia - CAD clinically stable Chronic systolic HF compensated Check 2D echo if covid negative Thank you for your consultation BRETT MCG[facility] MANAGER HEMATOLOGY Mar 23, 2020 14:37 MANNY DAVENPORT MD Mar 24, 2020 06:59
[2020-03-23 15:01] LABS: BILIRUBIN,URINE NEGATIVE (NEG); CLARITY,URINE CLEAR; COLOR,URINE YELLOW; NITRITE,URINE NEGATIVE (NEG); PROTEIN,URINE NEGATIVE (NEG-TRACE); UROBILINOGEN,URINE 0.2 mg/dL (0.2 mg/dL)
[2020-03-23 15:11] LABS: BACTERIA,URINE 0 /HPF (0-FEW); RBC,URINE 0 /HPF (0-2); WBC,URINE 0 /HPF (0-4)
[2020-03-23 15:12] LABS: HYALINE CASTS, URINE FEW /HPF
[2020-03-23] MEDS ORDERED: ONDANSETRON PF 4 MG/2 ML VIAL. IV PRN (15:30)
[2020-03-23] MEDS ORDERED: MORPHINE SULFATE 4 MG/ML VIAL. IV PRN (15:30)
[2020-03-23] MEDS ORDERED: LABETALOL 20 MG/4 ML DISP.SYRIN. IVP PRN (16:30)
[2020-03-23 17:15] VITALS: BP 154/72
[2020-03-23] MEDS ORDERED: ENOXAPARIN 40 MG/0.4 ML SYRINGE. SQ SCH (17:15)
[2020-03-23] MEDS ORDERED: DULAGLUTIDE SQ SCH (17:15)
[2020-03-23] MEDS: PIPERACILLIN/TAZOBACTAM 3.375 GM in IV NORMAL SALINE 50ML 50 ML IV SCH ×2 (17:59→23:08)
[2020-03-23] MEDS: CARVEDILOL 3.125 MG TABLET. PO SCH (17:59)
[2020-03-23] MEDS: INSULIN LISPRO 300 UNITS/3 ML VIAL. SQ SCH (18:01)
[2020-03-23 19:41] VITALS: BP 132/66
[2020-03-23] MEDS: NON FORMULARY ITEM (Loteprednol Etabonate (Lotemax) 1 DROP) EACHEYE SCH (19:49)
[2020-03-23] MEDS: TIMOLOL 0.25% OPHTH SOLUTION 5ML BOTTLE. OU SCH (20:15)
[2020-03-23] MEDS: BRIMONIDINE 0.2% OPHTH SOLUTION 5ML BOTTLE. OD SCH (20:15)
[2020-03-23] MEDS: ATORVASTATIN CALCIUM 40 MG TABLET. PO SCH (20:16)
[2020-03-23] MEDS: GABAPENTIN 300 MG CAPSULE. PO SCH (20:16)
[2020-03-23] MEDS ORDERED: NON FORMULARY ITEM (Prednisolone Acetate 1 DROP) LEFTEYE SCH (21:00)
[2020-03-23] MEDS: IV NORMAL SALINE 1000ML BAG 1,000 ML IV SCH (23:08)
[2020-03-23] MEDS: ACETAMINOPHEN 325 MG TABLET. PO PRN (23:08)
[2020-03-23 23:44] VITALS: BP 132/77
[2020-03-24 03:47] VITALS: BP 118/65
[2020-03-24 04:30] LABS: BASO % 0 % (0-3); EOS % 0 % (0-3); HEMATOCRIT 31.8 % (39.0-53.0); HEMOGLOBIN 10.4 g/dL (13.0-17.5); LYMPH # 2.3 x10^3/uL (1.0-4.8); LYMPH % 31 % (24-48); MEAN CORPUSCULAR HEMOGLOBIN 26 pg (25-35); MEAN CORPUSCULAR HGB CONC 33 g/dL (31-37); MEAN CORPUSCULAR VOLUME 80 fL (79-100); MONO # 1.1 x10^3/uL (0.0-1.1); MONO % 16 % (0-9); NEUT # 3.9 x10^3/uL (1.8-7.7); NEUT % 53 % (31-73); PLATELET COUNT 113 x10^3/uL (140-400); RED BLOOD COUNT 3.99 x10^6/uL (4.30-5.70); RED CELL DISTRIBUTION WIDTH 14.6 % (11.5-14.5); WHITE BLOOD COUNT 7.2 x10^3/uL (4.0-11.0)
[2020-03-24 05:07] LABS: ALBUMIN 2.4 g/dL (3.4-5.0); ALBUMIN/GLOBULIN RATIO 0.8 (1.0-1.7); CALCIUM 7.8 mg/dL (8.5-10.1); CREATININE 2.2 mg/dL (0.7-1.3); GFR 37.8; POTASSIUM 4.3 mmol/L (3.5-5.1); TOTAL BILIRUBIN 0.3 mg/dL (0.2-1.0); TOTAL PROTEIN 5.6 g/dL (6.4-8.2)
[2020-03-24 05:16] LABS: CHOLESTEROL/HDL RATIO 4.4
[2020-03-24] MEDS: PIPERACILLIN/TAZOBACTAM 3.375 GM in IV NORMAL SALINE 50ML 50 ML IV SCH ×3 (05:30→17:39)
[2020-03-24 07:00] VITALS: BP 155/81
[2020-03-24] MEDS ORDERED: ASPIRIN ENTERIC COATED 81 MG TABLET.DR. PO SCH (08:00)
[2020-03-24] MEDS ORDERED: FUROSEMIDE 20 MG TABLET PO SCH (09:00)
[2020-03-24] MEDS ORDERED: CLOPIDOGREL BISULFATE 75 MG TABLET PO SCH (09:00)
[2020-03-24] MEDS ORDERED: ASPIRIN 325 MG TABLET PO SCH (09:00)
[2020-03-24] MEDS ORDERED: NON FORMULARY ITEM (Losartan/Hydrochlorothiazide (Losartan-Hctz 100-12.5 Mg Tab) 1 TAB) PO SCH (09:00)
[2020-03-24] MEDS: NON FORMULARY ITEM (Loteprednol Etabonate (Lotemax) 1 DROP) EACHEYE SCH ×2 (09:00→19:40)
--- NOTE | 2020-03-24 09:07 | PDOC ---
PULMONARY PROGRESS NOTES DATE: 03/24/20 TIME: 09:06 Vitals Vital Signs Date Time Temp Pulse Resp B/P (MAP) Pulse Ox O2 Delivery O2 Flow Rate FiO2 03/24/20 03:47 99.3 82 20 118/65 (82) 97 Room Air 99.3 Labs Laboratory Tests Test 03/23/20 11:30 03/23/20 14:50 03/23/20 15:55 03/23/20 16:57 White Blood Count 8.4 x10^3/uL (4.0-11.0) Red Blood Count 4.39 x10^6/uL (4.30-5.70) Hemoglobin 11.6 g/dL (13.0-17.5) Hematocrit 34.7 % (39.0-53.0) Mean Corpuscular Volume 79 fL (79-100) Mean Corpuscular Hemoglobin 26 pg (25-35) Mean Corpuscular Hemoglobin Concent 33 g/dL (31-37) Red Cell Distribution Width 14.9 % (11.5-14.5) Platelet Count 132 x10^3/uL (140-400) Neutrophils (%) (Auto) 51 % (31-73) Lymphocytes (%) (Auto) 35 % (24-48) Monocytes (%) (Auto) 14 % (0-9) Eosinophils (%) (Auto) 0 % (0-3) Basophils (%) (Auto) 1 % (0-3) Neutrophils # (Auto) 4.3 x10^3/uL (1.8-7.7) Lymphocytes # (Auto) 2.9 x10^3/uL (1.0-4.8) Monocytes # (Auto) 1.2 x10^3/uL (0.0-1.1) Eosinophils # (Auto) 0.0 x10^3/uL (0.0-0.7) Basophils # (Auto) 0.1 x10^3/uL (0.0-0.2) Prothrombin Time 13.4 SEC (11.7-14.0) Prothromb Time International Ratio 1.1 (0.8-1.1) Activated Partial Thromboplast Time 35 SEC (24-38) Sodium Level 132 mmol/L (136-145) Potassium Level 4.4 mmol/L (3.5-5.1) Chloride Level 99 mmol/L (98-107) Carbon Dioxide Level 25 mmol/L (21-32) Anion Gap 8 (6-14) Blood Urea Nitrogen 25 mg/dL (8-26) Creatinine 2.0 mg/dL (0.7-1.3) Estimated GFR (Cockcroft-Gault) 42.2 BUN/Creatinine Ratio 13 (6-20) Glucose Level 182 mg/dL (70-99) Lactic Acid Level 1.2 mmol/L (0.4-2.0) Calcium Level 8.2 mg/dL (8.5-10.1) Magnesium Level 2.1 mg/dL (1.8-2.4) Total Bilirubin 0.4 mg/dL (0.2-1.0) Aspartate Amino Transf (AST/SGOT) 23 U/L (15-37) Alanine Aminotransferase (ALT/SGPT) 20 U/L (16-63) Alkaline Phosphatase 49 U/L (46-116) Creatine Kinase 180 U/L (39-308) Creatine Kinase MB (Mass) 2.2 ng/mL (0.0-3.6) Creatine Kinase MB Relative Index 1.2 % (0-4) Troponin I Quantitative 0.122 ng/mL (0.000-0.055) 0.132 ng/mL (0.000-0.055) Total Protein 6.6 g/dL (6.4-8.2) Albumin 3.1 g/dL (3.4-5.0) Albumin/Globulin Ratio 0.9 (1.0-1.7) Lipase 261 U/L (73-393) Procalcitonin < 0.10 ng/mL (0.00-0.10) Thyroid Stimulating Hormone (TSH) 2.597 uIU/mL (0.358-3.74) Urine Collection Type Unknown Urine Color Yellow Urine Clarity Clear Urine pH 5.0 (<5.0-8.0) Urine Specific [place] 1.010 (1.000-1.030) Urine Protein Negative mg/dL (NEG-TRACE) Urine Glucose (UA) Negative mg/dL (NEG) Urine Ketones (Stick) Negative mg/dL (NEG) Urine Blood Negative (NEG) Urine Nitrite Negative (NEG) Urine Bilirubin Negative (NEG) Urine Urobilinogen Dipstick 0.2 mg/dL (0.2 mg/dL) Urine Leukocyte Esterase Negative (NEG) Urine RBC 0 /HPF (0-2) Urine WBC 0 /HPF (0-4) Urine Bacteria 0 /HPF (0-FEW) Urine Hyaline Casts Few /HPF Glucose (Fingerstick) 216 mg/dL (70-99) Test 03/23/20 18:00 03/23/20 20:54 03/24/20 04:00 Troponin I Quantitative 0.147 ng/mL (0.000-0.055) Glucose (Fingerstick) 272 mg/dL (70-99) White Blood Count 7.2 x10^3/uL (4.0-11.0) Red Blood Count 3.99 x10^6/uL (4.30-5.70) Hemoglobin 10.4 g/dL (13.0-17.5) Hematocrit 31.8 % (39.0-53.0) Mean Corpuscular Volume 80 fL (79-100) Mean Corpuscular Hemoglobin 26 pg (25-35) Mean Corpuscular Hemoglobin Concent 33 g/dL (31-37) Red Cell Distribution Width 14.6 % (11.5-14.5) Platelet Count 113 x10^3/uL (140-400) Neutrophils (%) (Auto) 53 % (31-73) Lymphocytes (%) (Auto) 31 % (24-48) Monocytes (%) (Auto) 16 % (0-9) Eosinophils (%) (Auto) 0 % (0-3) Basophils (%) (Auto) 0 % (0-3) Neutrophils # (Auto) 3.9 x10^3/uL (1.8-7.7) Lymphocytes # (Auto) 2.3 x10^3/uL (1.0-4.8) Monocytes # (Auto) 1.1 x10^3/uL (0.0-1.1) Eosinophils # (Auto) 0.0 x10^3/uL (0.0-0.7) Basophils # (Auto) 0.0 x10^3/uL (0.0-0.2) Sodium Level 131 mmol/L (136-145) Potassium Level 4.3 mmol/L (3.5-5.1) Chloride Level 98 mmol/L (98-107) Carbon Dioxide Level 26 mmol/L (21-32) Anion Gap 7 (6-14) Blood Urea Nitrogen 27 mg/dL (8-26) Creatinine 2.2 mg/dL (0.7-1.3) Estimated GFR (Cockcroft-Gault) 37.8 BUN/Creatinine Ratio 12 (6-20) Glucose Level 167 mg/dL (70-99) Calcium Level 7.8 mg/dL (8.5-10.1) Total Bilirubin 0.3 mg/dL (0.2-1.0) Aspartate Amino Transf (AST/SGOT) 19 U/L (15-37) Alanine Aminotransferase (ALT/SGPT) 16 U/L (16-63) Alkaline Phosphatase 42 U/L (46-116) Total Protein 5.6 g/dL (6.4-8.2) Albumin 2.4 g/dL (3.4-5.0) Albumin/Globulin Ratio 0.8 (1.0-1.7) Triglycerides Level 106 mg/dL (0-150) Cholesterol Level 120 mg/dL (0-200) LDL Cholesterol, Calculated 72 mg/dL (0-100) VLDL Cholesterol, Calculated 21 mg/dL (0-40) Non-HDL Cholesterol Calculated 93 mg/dL (0-129) HDL Cholesterol 27 mg/dL (40-60) Cholesterol/HDL Ratio 4.4 Thyroid Stimulating Hormone (TSH) 2.637 uIU/mL (0.358-3.74) Laboratory Tests Test 03/23/20 11:30 03/23/20 14:50 03/23/20 15:55 03/23/20 16:57 White Blood Count 8.4 x10^3/uL (4.0-11.0) Red Blood Count 4.39 x10^6/uL (4.30-5.70) Hemoglobin 11.6 g/dL (13.0-17.5) Hematocrit 34.7 % (39.0-53.0) Mean Corpuscular Volume 79 fL (79-100) Mean Corpuscular Hemoglobin 26 pg (25-35) Mean Corpuscular Hemoglobin Concent 33 g/dL (31-37) Red Cell Distribution Width 14.9 % (11.5-14.5) Platelet Count 132 x10^3/uL (140-400) Neutrophils (%) (Auto) 51 % (31-73) Lymphocytes (%) (Auto) 35 % (24-48) Monocytes (%) (Auto) 14 % (0-9) Eosinophils (%) (Auto) 0 % (0-3) Basophils (%) (Auto) 1 % (0-3) Neutrophils # (Auto) 4.3 x10^3/uL (1.8-7.7) Lymphocytes # (Auto) 2.9 x10^3/uL (1.0-4.8) Monocytes # (Auto) 1.2 x10^3/uL (0.0-1.1) Eosinophils # (Auto) 0.0 x10^3/uL (0.0-0.7) Basophils # (Auto) 0.1 x10^3/uL (0.0-0.2) Prothrombin Time 13.4 SEC (11.7-14.0) Prothromb Time International Ratio 1.1 (0.8-1.1) Activated Partial Thromboplast Time 35 SEC (24-38) Sodium Level 132 mmol/L (136-145) Potassium Level 4.4 mmol/L (3.5-5.1) Chloride Level 99 mmol/L (98-107) Carbon Dioxide Level 25 mmol/L (21-32) Anion Gap 8 (6-14) Blood Urea Nitrogen 25 mg/dL (8-26) Creatinine 2.0 mg/dL (0.7-1.3) Estimated GFR (Cockcroft-Gault) 42.2 BUN/Creatinine Ratio 13 (6-20) Glucose Level 182 mg/dL (70-99) Lactic Acid Level 1.2 mmol/L (0.4-2.0) Calcium Level 8.2 mg/dL (8.5-10.1) Magnesium Level 2.1 mg/dL (1.8-2.4) Total Bilirubin 0.4 mg/dL (0.2-1.0) Aspartate Amino Transf (AST/SGOT) 23 U/L (15-37) Alanine Aminotransferase (ALT/SGPT) 20 U/L (16-63) Alkaline Phosphatase 49 U/L (46-116) Creatine Kinase 180 U/L (39-308) Creatine Kinase MB (Mass) 2.2 ng/mL (0.0-3.6) Creatine Kinase MB Relative Index 1.2 % (0-4) Troponin I Quantitative 0.122 ng/mL (0.000-0.055) 0.132 ng/mL (0.000-0.055) Total Protein 6.6 g/dL (6.4-8.2) Albumin 3.1 g/dL (3.4-5.0) Albumin/Globulin Ratio 0.9 (1.0-1.7) Lipase 261 U/L (73-393) Procalcitonin < 0.10 ng/mL (0.00-0.10) Thyroid Stimulating Hormone (TSH) 2.597 uIU/mL (0.358-3.74) Urine Collection Type Unknown Urine Color Yellow Urine Clarity Clear Urine pH 5.0 (<5.0-8.0) Urine Specific [place] 1.010 (1.000-1.030) Urine Protein Negative mg/dL (NEG-TRACE) Urine Glucose (UA) Negative mg/dL (NEG) Urine Ketones (Stick) Negative mg/dL (NEG) Urine Blood Negative (NEG) Urine Nitrite Negative (NEG) Urine Bilirubin Negative (NEG) Urine Urobilinogen Dipstick 0.2 mg/dL (0.2 mg/dL) Urine Leukocyte Esterase Negative (NEG) Urine RBC 0 /HPF (0-2) Urine WBC 0 /HPF (0-4) Urine Bacteria 0 /HPF (0-FEW) Urine Hyaline Casts Few /HPF Glucose (Fingerstick) 216 mg/dL (70-99) Test 03/23/20 18:00 03/23/20 20:54 03/24/20 04:00 Troponin I Quantitative 0.147 ng/mL (0.000-0.055) Glucose (Fingerstick) 272 mg/dL (70-99) White Blood Count 7.2 x10^3/uL (4.0-11.0) Red Blood Count 3.99 x10^6/uL (4.30-5.70) Hemoglobin 10.4 g/dL (13.0-17.5) Hematocrit 31.8 % (39.0-53.0) Mean Corpuscular Volume 80 fL (79-100) Mean Corpuscular Hemoglobin 26 pg (25-35) Mean Corpuscular Hemoglobin Concent 33 g/dL (31-37) Red Cell Distribution Width 14.6 % (11.5-14.5) Platelet Count 113 x10^3/uL (140-400) Neutrophils (%) (Auto) 53 % (31-73) Lymphocytes (%) (Auto) 31 % (24-48) Monocytes (%) (Auto) 16 % (0-9) Eosinophils (%) (Auto) 0 % (0-3) Basophils (%) (Auto) 0 % (0-3) Neutrophils # (Auto) 3.9 x10^3/uL (1.8-7.7) Lymphocytes # (Auto) 2.3 x10^3/uL (1.0-4.8) Monocytes # (Auto) 1.1 x10^3/uL (0.0-1.1) Eosinophils # (Auto) 0.0 x10^3/uL (0.0-0.7) Basophils # (Auto) 0.0 x10^3/uL (0.0-0.2) Sodium Level 131 mmol/L (136-145) Potassium Level 4.3 mmol/L (3.5-5.1) Chloride Level 98 mmol/L (98-107) Carbon Dioxide Level 26 mmol/L (21-32) Anion Gap 7 (6-14) Blood Urea Nitrogen 27 mg/dL (8-26) Creatinine 2.2 mg/dL (0.7-1.3) Estimated GFR (Cockcroft-Gault) 37.8 BUN/Creatinine Ratio 12 (6-20) Glucose Level 167 mg/dL (70-99) Calcium Level 7.8 mg/dL (8.5-10.1) Total Bilirubin 0.3 mg/dL (0.2-1.0) Aspartate Amino Transf (AST/SGOT) 19 U/L (15-37) Alanine Aminotransferase (ALT/SGPT) 16 U/L (16-63) Alkaline Phosphatase 42 U/L (46-116) Total Protein 5.6 g/dL (6.4-8.2) Albumin 2.4 g/dL (3.4-5.0) Albumin/Globulin Ratio 0.8 (1.0-1.7) Triglycerides Level 106 mg/dL (0-150) Cholesterol Level 120 mg/dL (0-200) LDL Cholesterol, Calculated 72 mg/dL (0-100) VLDL Cholesterol, Calculated 21 mg/dL (0-40) Non-HDL Cholesterol Calculated 93 mg/dL (0-129) HDL Cholesterol 27 mg/dL (40-60) Cholesterol/HDL Ratio 4.4 Thyroid Stimulating Hormone (TSH) 2.637 uIU/mL (0.358-3.74) Medications Active Scripts Medications Dose Route/Sig Max Daily Dose Days Date Category Dose Instructions Combigan Eye Drops (Brimonidine Tartrate/Timolol) 5 Ml Drops 5 Ml OP BID 05/01/19 Reported Lotemax (Loteprednol Etabonate) 5 Gm Gel..gram. 1 Drop EACHEYE BID 05/01/19 Reported Imbruvica (Ibrutinib) 140 Mg Capsule 3 Cap PO DAILY 30 05/01/19 Reported Furosemide 20 Mg Tablet 1 Tab PO DAILY 05/01/19 Reported Hydrochlorothiazide Tablet (Hydrochlorothiazide) 12.5 Mg Tablet 12.5 Mg PO DAILY 05/01/19 Reported Coreg (Carvedilol) 3.125 Mg Tablet 3.125 Mg PO BIDWMEALS 30 11/19/18 Rx Prednisolone Acetate 5 Ml Drops.susp 1 Drop LEFTEYE BID 11/18/18 Reported Atorvastatin Calcium 40 Mg Tablet 1 Tab PO QHS 10/23/18 Reported Clopidogrel (Clopidogrel Bisulfate) 75 Mg Tablet 1 Tab PO DAILY 10/23/18 Reported Trulicity (Dulaglutide) 0.75 Mg/0.5 Ml Pen.injctr 5 Units SQ QWEEKLY 08/01/17 Reported takes on Tuesdaysume 50-1,000 Mg Tablet (Sitagliptin Phos/Metformin Hcl) 1 Each Tablet 1 Tab PO BID 08/01/17 Reported Gabapentin 300 Mg Capsule 300 Mg PO TID 08/01/17 Reported Losartan-Hctz 100-12.5 Mg Tab (Losartan/Hydrochlorothiazide) 1 Each Tablet 1 Tab PO DAILY 03/13/17 Reported Aspirin 325 Mg Tablet 1 Tab PO DAILY 04/21/15 Reported Impression . Full note dictated Pneumonia, will obtain CT chest Rule out COVID-19 Possible sepsis GUNJAN OLIVA MD Mar 24, 2020 09:07
[2020-03-24] MEDS: BRIMONIDINE 0.2% OPHTH SOLUTION 5ML BOTTLE. OD SCH ×2 (09:08→22:06)
[2020-03-24] MEDS: IV NORMAL SALINE 1000ML BAG 1,000 ML IV SCH (09:08)
[2020-03-24] MEDS: CARVEDILOL 3.125 MG TABLET. PO SCH ×2 (09:09→17:39)
[2020-03-24] MEDS: ASPIRIN ENTERIC COATED 81 MG TABLET.DR. PO SCH (09:09)
[2020-03-24] MEDS: GABAPENTIN 300 MG CAPSULE. PO SCH ×3 (09:09→22:05)
[2020-03-24] MEDS: TIMOLOL 0.25% OPHTH SOLUTION 5ML BOTTLE. OU SCH ×2 (09:09→22:06)
[2020-03-24] MEDS: INSULIN LISPRO 300 UNITS/3 ML VIAL. SQ SCH ×3 (09:23→17:38)
[2020-03-24] MEDS: ACETAMINOPHEN 325 MG TABLET. PO PRN ×2 (09:37→22:06)
[2020-03-24] MEDS: ENOXAPARIN 40 MG/0.4 ML SYRINGE. SQ SCH (09:37)
--- NOTE | 2020-03-24 09:41 | CONS ---
DATE OF CONSULTATION: 03/24/2020 ATTENDING PHYSICIAN: Dr. Rachel Horton. REASON FOR CONSULTATION: The patient is seen in pulmonary consultation at the request of Dr. Horton for abnormal CT abdomen revealing bilateral lower lobe infiltrates. HISTORY OF PRESENT ILLNESS: The patient is a 54-year-old -[place] male that has never smoked. He was diagnosed with CLL. He normally sees Dr. Uribe. He is currently on Imbruvica. He comes in mainly because of body aches, fever, not feeling well and abdominal discomfort. He was a little short of breath. He has a cough, mostly nonproductive. No COVID-19 exposures. The patient underwent a chest x-ray, which revealed right lung base nodule. I was asked to see him in consultation. In addition, he underwent CT abdomen and pelvis revealing small focal areas of infiltrates involving the right middle lobe and lower lobe. PAST MEDICAL HISTORY: Otherwise remarkable for chronic lymphocytic leukemia, currently being treated as indicated above. He has chronic kidney disease, type 2 diabetes, previous left pontine CVA, hypertension, hyperlipidemia, and history of mild asthma triggered mostly by upper respiratory tract infection, he uses p.r.n. albuterol. PAST SURGICAL HISTORY: Status post carpal tunnel release and bilateral rotator cuff surgery. FAMILY HISTORY: Positive for diabetes. SOCIAL HISTORY: He has never smoked. ALLERGIES: No known drug allergies. CURRENT MEDICATIONS: List was reviewed. REVIEW OF SYSTEMS: CONSTITUTIONAL: Subjective fever. EYES: No change in visual acuity. HEENT: No nasal congestion or sore throat. PULMONARY: As indicated above. CARDIOVASCULAR: No chest pain. No pressure. GASTROINTESTINAL:. Some nausea, no vomiting. GENITOURINARY: No dysuria or frequency. MUSCULOSKELETAL: Diffuse myalgias. SKIN: No new skin lesions. NEUROLOGIC: No headaches, diplopia or blurred vision. CURRENT MEDICATIONS: List was reviewed. He is currently being treated with Zyvox and Zosyn. He is currently on no DVT prophylaxis. PHYSICAL EXAMINATION: GENERAL: The patient appeared to be of stated age. VITAL SIGNS: Stable, since admission, he has had a T-max of 100.8. HEENT: Eyes, the sclerae were nonicteric. NECK: Jugular venous distention was not elevated. No lymphadenopathy. CHEST: Full expansion. LUNGS: Scattered rhonchi. No wheezes. CARDIOVASCULAR: Regular rate and rhythm with S1, S2, no S3. ABDOMEN: Soft, nontender. EXTREMITIES: No clubbing, cyanosis or edema. NEUROLOGICAL: The patient was awake, alert and following commands. A detailed neuro exam was not performed. LABORATORY DATA: White count was not elevated. Hemoglobin and hematocrit were noted. BUN was elevated, creatinine was elevated. Albumin was low. Troponin was slightly elevated. Sodium was low. RADIOLOGICAL DATA: Chest x-ray and CT as indicated above. IMPRESSION: 1. Abnormal chest x-ray and CT revealing bilateral pulmonary infiltrates, suspect gram-negative or gram-positive pneumonia, possible COVID-19. 2. Chronic lymphocytic leukemia, currently being treated with Imbruvica, known to cause pneumonia and possible pneumonitis. 3. Type 2 diabetes. 4. Hypertension. 5. Elevated troponin level. 6. Myalgias, arthralgias and fever could be related to either sepsis or adverse reaction to the medication. 7. Chronic systolic heart failure. 8. History of cerebrovascular accident. 9. Diarrhea. 10. Recent epistaxis. PLAN: 1. Continue support with current antibiotics. 2. DVT prophylaxis. 3. Obtain CT chest with no contrast. 4. SARS-CoV-2 pending. 5. Blood cultures for temperature above 100. 6. ID has been consulted. 7. I do appreciate the privilege in sharing in the patient's care. GUNJAN OLIVA MD DR: LAYLA/godfrey JOB#: [id number] / [id number]
--- NOTE | 2020-03-24 10:45 | PDOC ---
Infectious Disease Note Vital Sign Vital Signs Vital Signs Date Time Temp Pulse Resp B/P (MAP) Pulse Ox O2 Delivery O2 Flow Rate FiO2 03/24/20 09:09 82 118/65 03/24/20 07:00 100.6 18 98 Room Air 100.6 Labs Lab Laboratory Tests Test 03/23/20 11:30 03/23/20 14:50 03/23/20 15:55 03/23/20 16:57 White Blood Count 8.4 x10^3/uL (4.0-11.0) Red Blood Count 4.39 x10^6/uL (4.30-5.70) Hemoglobin 11.6 g/dL (13.0-17.5) Hematocrit 34.7 % (39.0-53.0) Mean Corpuscular Volume 79 fL (79-100) Mean Corpuscular Hemoglobin 26 pg (25-35) Mean Corpuscular Hemoglobin Concent 33 g/dL (31-37) Red Cell Distribution Width 14.9 % (11.5-14.5) Platelet Count 132 x10^3/uL (140-400) Neutrophils (%) (Auto) 51 % (31-73) Lymphocytes (%) (Auto) 35 % (24-48) Monocytes (%) (Auto) 14 % (0-9) Eosinophils (%) (Auto) 0 % (0-3) Basophils (%) (Auto) 1 % (0-3) Neutrophils # (Auto) 4.3 x10^3/uL (1.8-7.7) Lymphocytes # (Auto) 2.9 x10^3/uL (1.0-4.8) Monocytes # (Auto) 1.2 x10^3/uL (0.0-1.1) Eosinophils # (Auto) 0.0 x10^3/uL (0.0-0.7) Basophils # (Auto) 0.1 x10^3/uL (0.0-0.2) Prothrombin Time 13.4 SEC (11.7-14.0) Prothromb Time International Ratio 1.1 (0.8-1.1) Activated Partial Thromboplast Time 35 SEC (24-38) Sodium Level 132 mmol/L (136-145) Potassium Level 4.4 mmol/L (3.5-5.1) Chloride Level 99 mmol/L (98-107) Carbon Dioxide Level 25 mmol/L (21-32) Anion Gap 8 (6-14) Blood Urea Nitrogen 25 mg/dL (8-26) Creatinine 2.0 mg/dL (0.7-1.3) Estimated GFR (Cockcroft-Gault) 42.2 BUN/Creatinine Ratio 13 (6-20) Glucose Level 182 mg/dL (70-99) Lactic Acid Level 1.2 mmol/L (0.4-2.0) Calcium Level 8.2 mg/dL (8.5-10.1) Magnesium Level 2.1 mg/dL (1.8-2.4) Total Bilirubin 0.4 mg/dL (0.2-1.0) Aspartate Amino Transf (AST/SGOT) 23 U/L (15-37) Alanine Aminotransferase (ALT/SGPT) 20 U/L (16-63) Alkaline Phosphatase 49 U/L (46-116) Creatine Kinase 180 U/L (39-308) Creatine Kinase MB (Mass) 2.2 ng/mL (0.0-3.6) Creatine Kinase MB Relative Index 1.2 % (0-4) Troponin I Quantitative 0.122 ng/mL (0.000-0.055) 0.132 ng/mL (0.000-0.055) Total Protein 6.6 g/dL (6.4-8.2) Albumin 3.1 g/dL (3.4-5.0) Albumin/Globulin Ratio 0.9 (1.0-1.7) Lipase 261 U/L (73-393) Procalcitonin < 0.10 ng/mL (0.00-0.10) Thyroid Stimulating Hormone (TSH) 2.597 uIU/mL (0.358-3.74) Urine Collection Type Unknown Urine Color Yellow Urine Clarity Clear Urine pH 5.0 (<5.0-8.0) Urine Specific [place] 1.010 (1.000-1.030) Urine Protein Negative mg/dL (NEG-TRACE) Urine Glucose (UA) Negative mg/dL (NEG) Urine Ketones (Stick) Negative mg/dL (NEG) Urine Blood Negative (NEG) Urine Nitrite Negative (NEG) Urine Bilirubin Negative (NEG) Urine Urobilinogen Dipstick 0.2 mg/dL (0.2 mg/dL) Urine Leukocyte Esterase Negative (NEG) Urine RBC 0 /HPF (0-2) Urine WBC 0 /HPF (0-4) Urine Bacteria 0 /HPF (0-FEW) Urine Hyaline Casts Few /HPF Glucose (Fingerstick) 216 mg/dL (70-99) Test 03/23/20 18:00 03/23/20 20:54 03/24/20 04:00 03/24/20 08:00 Troponin I Quantitative 0.147 ng/mL (0.000-0.055) Glucose (Fingerstick) 272 mg/dL (70-99) 161 mg/dL (70-99) White Blood Count 7.2 x10^3/uL (4.0-11.0) Red Blood Count 3.99 x10^6/uL (4.30-5.70) Hemoglobin 10.4 g/dL (13.0-17.5) Hematocrit 31.8 % (39.0-53.0) Mean Corpuscular Volume 80 fL (79-100) Mean Corpuscular Hemoglobin 26 pg (25-35) Mean Corpuscular Hemoglobin Concent 33 g/dL (31-37) Red Cell Distribution Width 14.6 % (11.5-14.5) Platelet Count 113 x10^3/uL (140-400) Neutrophils (%) (Auto) 53 % (31-73) Lymphocytes (%) (Auto) 31 % (24-48) Monocytes (%) (Auto) 16 % (0-9) Eosinophils (%) (Auto) 0 % (0-3) Basophils (%) (Auto) 0 % (0-3) Neutrophils # (Auto) 3.9 x10^3/uL (1.8-7.7) Lymphocytes # (Auto) 2.3 x10^3/uL (1.0-4.8) Monocytes # (Auto) 1.1 x10^3/uL (0.0-1.1) Eosinophils # (Auto) 0.0 x10^3/uL (0.0-0.7) Basophils # (Auto) 0.0 x10^3/uL (0.0-0.2) Sodium Level 131 mmol/L (136-145) Potassium Level 4.3 mmol/L (3.5-5.1) Chloride Level 98 mmol/L (98-107) Carbon Dioxide Level 26 mmol/L (21-32) Anion Gap 7 (6-14) Blood Urea Nitrogen 27 mg/dL (8-26) Creatinine 2.2 mg/dL (0.7-1.3) Estimated GFR (Cockcroft-Gault) 37.8 BUN/Creatinine Ratio 12 (6-20) Glucose Level 167 mg/dL (70-99) Calcium Level 7.8 mg/dL (8.5-10.1) Total Bilirubin 0.3 mg/dL (0.2-1.0) Aspartate Amino Transf (AST/SGOT) 19 U/L (15-37) Alanine Aminotransferase (ALT/SGPT) 16 U/L (16-63) Alkaline Phosphatase 42 U/L (46-116) Total Protein 5.6 g/dL (6.4-8.2) Albumin 2.4 g/dL (3.4-5.0) Albumin/Globulin Ratio 0.8 (1.0-1.7) Triglycerides Level 106 mg/dL (0-150) Cholesterol Level 120 mg/dL (0-200) LDL Cholesterol, Calculated 72 mg/dL (0-100) VLDL Cholesterol, Calculated 21 mg/dL (0-40) Non-HDL Cholesterol Calculated 93 mg/dL (0-129) HDL Cholesterol 27 mg/dL (40-60) Cholesterol/HDL Ratio 4.4 Thyroid Stimulating Hormone (TSH) 2.637 uIU/mL (0.358-3.74) Objective Assessment Patient seen consult dictated Plan Plan of Care / POLI PELAYO MD Mar 24, 2020 10:45
[2020-03-24 11:00] VITALS: BP 143/71
--- NOTE | 2020-03-24 11:22 | CONS ---
DATE OF CONSULTATION: 03/24/2020 REQUESTING PHYSICIAN: Rachel Horton MD. REASON FOR CONSULTATION: Pneumonia and antibiotic management. HISTORY OF PRESENT ILLNESS: This is a 54-year-old -[place] gentleman with multiple medical problems including CLL who is getting chemotherapy, who presented with generalized body aches, not feeling well, had fever. The patient was found to have bilateral pneumonia, hence admitted. The patient is started on Zyvox and Zosyn. COVID is pending. The patient denies any nausea, vomiting or diarrhea. Denies any chest pain, headache, visual symptoms, abdominal pain or urinary symptoms. PAST MEDICAL HISTORY: Positive for CLL, on chemotherapy, also has coronary artery disease with stenting done, cerebrovascular accident, peripheral neuropathy, hypertension, hyperlipidemia, carpal tunnel surgery done, diabetes. SOCIAL HISTORY: Positive for smoking. No alcohol or illicit drug use. ALLERGIES: No known drug allergies. CURRENT MEDICATIONS: Reviewed. REVIEW OF SYSTEMS: As per HPI, all other systems reviewed are negative. PHYSICAL EXAMINATION: GENERAL: Alert, oriented gentleman, not in any distress. VITAL SIGNS: Stable with T-max 102.5, pulse 82, respirations 18, blood pressure 118/65. HEENT: Both pupils are round and reacting. No conjunctival lesion. No lesion in the mouth. NECK: Supple, no JVP, no lymphadenopathy. LUNGS: Clear. HEART: S1, S2 regular. ABDOMEN: Soft, nontender, no organomegaly. EXTREMITIES: No edema or cyanosis. SKIN: Unremarkable. NEUROLOGIC: The patient is alert, awake and appropriate. No focal neurologic deficit. LABORATORY DATA: White count is normal. Platelets are 113,000. BUN and creatinine are 27 and 2.2. Urinalysis unremarkable. Blood culture is pending. CT of the abdomen and pelvis showed pulmonary infiltrate, bilateral. IMPRESSION: 1. Pulmonary infiltrate, rule out COVID-19. 2. Fever. 3. Immunosuppression. 4. Renal insufficiency. 5. Diabetes. 6. Hypertension. 7. Coronary artery disease. RECOMMENDATIONS: Agree with Zyvox and Zosyn. We will wait for the COVID to decide on remdesivir, supportive care and we will continue to follow. Thank you very much, Dr. Horton, for giving me the opportunity to participate in this patient's care. POLI PELAYO MD DR: JOSELITO/godfrey JOB#: [id number] / [id number]
[2020-03-24 15:00] VITALS: BP 132/70
--- NOTE | 2020-03-24 15:26 | PDOC ---
BRETT MCGHEE CRUDE TESTER 03/24/20 1526: CARDIO Progress Notes Date and Time Date of Service 03/24/2020 Time of Evaluation 1440 Subjective Subjective: No Chest Pain, No shortness of breath, No Palpitations Vitals Vitals Vital Signs Date Time Temp Pulse Resp B/P (MAP) Pulse Ox O2 Delivery O2 Flow Rate FiO2 03/24/20 11:00 99.2 86 24 143/71 (95) 98 Room Air 99.2 Weight Weight [ ] Input and Output Intake and Output Intake and Output 03/24/20 07:00 Intake Total 510 ml Output Total 950 ml Balance -440 ml Intake Oral 110 ml IV Total 400 ml Output Urine Total 950 ml Laboratory Labs Laboratory Tests Test 03/23/20 15:55 03/23/20 16:57 03/23/20 18:00 03/23/20 20:54 Troponin I Quantitative 0.132 ng/mL (0.000-0.055) 0.147 ng/mL (0.000-0.055) Glucose (Fingerstick) 216 mg/dL (70-99) 272 mg/dL (70-99) Test 03/24/20 04:00 03/24/20 08:00 White Blood Count 7.2 x10^3/uL (4.0-11.0) Red Blood Count 3.99 x10^6/uL (4.30-5.70) Hemoglobin 10.4 g/dL (13.0-17.5) Hematocrit 31.8 % (39.0-53.0) Mean Corpuscular Volume 80 fL (79-100) Mean Corpuscular Hemoglobin 26 pg (25-35) Mean Corpuscular Hemoglobin Concent 33 g/dL (31-37) Red Cell Distribution Width 14.6 % (11.5-14.5) Platelet Count 113 x10^3/uL (140-400) Neutrophils (%) (Auto) 53 % (31-73) Lymphocytes (%) (Auto) 31 % (24-48) Monocytes (%) (Auto) 16 % (0-9) Eosinophils (%) (Auto) 0 % (0-3) Basophils (%) (Auto) 0 % (0-3) Neutrophils # (Auto) 3.9 x10^3/uL (1.8-7.7) Lymphocytes # (Auto) 2.3 x10^3/uL (1.0-4.8) Monocytes # (Auto) 1.1 x10^3/uL (0.0-1.1) Eosinophils # (Auto) 0.0 x10^3/uL (0.0-0.7) Basophils # (Auto) 0.0 x10^3/uL (0.0-0.2) Sodium Level 131 mmol/L (136-145) Potassium Level 4.3 mmol/L (3.5-5.1) Chloride Level 98 mmol/L (98-107) Carbon Dioxide Level 26 mmol/L (21-32) Anion Gap 7 (6-14) Blood Urea Nitrogen 27 mg/dL (8-26) Creatinine 2.2 mg/dL (0.7-1.3) Estimated GFR (Cockcroft-Gault) 37.8 BUN/Creatinine Ratio 12 (6-20) Glucose Level 167 mg/dL (70-99) Calcium Level 7.8 mg/dL (8.5-10.1) Total Bilirubin 0.3 mg/dL (0.2-1.0) Aspartate Amino Transf (AST/SGOT) 19 U/L (15-37) Alanine Aminotransferase (ALT/SGPT) 16 U/L (16-63) Alkaline Phosphatase 42 U/L (46-116) Total Protein 5.6 g/dL (6.4-8.2) Albumin 2.4 g/dL (3.4-5.0) Albumin/Globulin Ratio 0.8 (1.0-1.7) Triglycerides Level 106 mg/dL (0-150) Cholesterol Level 120 mg/dL (0-200) LDL Cholesterol, Calculated 72 mg/dL (0-100) VLDL Cholesterol, Calculated 21 mg/dL (0-40) Non-HDL Cholesterol Calculated 93 mg/dL (0-129) HDL Cholesterol 27 mg/dL (40-60) Cholesterol/HDL Ratio 4.4 Thyroid Stimulating Hormone (TSH) 2.637 uIU/mL (0.358-3.74) Glucose (Fingerstick) 161 mg/dL (70-99) Microbiology Micro Microbiology 03/23/20 Blood Culture - Preliminary, Resulted NO GROWTH AFTER 1 DAY Physical Exam HEENT: Neck Supple W Full Motion Chest: Symmetric LUNGS: Other (diminished bases) Heart: RRR (SR) Abdomen: Soft N/T Extremities: No Calf Tenderness Neurology: alert, oriented, follow commands Assessment Assessment 1. RML CAP 2. Diarrhea/myalgia: still has 3. Recent Epistaxis 4. CLL: on imbruvica 5. [place] on CKD3: prerenal. Baseline 1.6-1.8 6. Elevated troponin: initial at 0.2, No acute EKG changes, no cardiac symptoms. Suspect demand mediated, type 2 7. PUI 8. CAD: past PCI/NAKUL to LAD, clinically stable 9. ICM: prior EF at 30-35%. He decided not to have AICD last yr 10. HTN: controlled 11. HLP: close to goal 12. DM2: per PCP 13. Hx of CVA Recommendations TTE if covid negative Continue secondary prevention measures. Continue coreg Hold diuretics for now given his diarrhea episodes. IVF ongoing and will decrease rate, discuss with RN. Denies any prior antibiotics. Need to get tested for C-diff pending ASA.hold plavix for now with his recent epistaxis, could restart if no further recurrence. Hold ARB for now. Labetolol IV PRN. Justicifation of Admission Dx: Justifications for Admission: Justification of Admission Dx: Yes MANNY DAVENPORT MD 03/25/20 0919: CARDIO Progress Notes Assessment Assessment Patient seen 03/24/20. Agree with ASSISTANT ASSOCIATE PROFESSOR's assessment and plan, RML Pneumonia - Covid test pending Slight trop elevation prob demand ischemia - CAD clinically stable Chronic systolic HF compensated Check 2D echo if covid negative Agree with holding Plavix secondary to epistaxis. BRETT MCGHEE APRN Mar 24, 2020 15:26 MANNY DAVENPORT MD Mar 25, 2020 09:19
--- NOTE | 2020-03-24 15:41 | PDOC ---
Provider Note Date of Service: DATE: 03/24/20 TIME: 15:41 Provider Note Pt seen,H&P dictated.#[id number]. Justifications for Admission Other Justification DENTON MCKEON MD Mar 24, 2020 15:41
--- NOTE | 2020-03-24 16:14 | HP ---
ADMIT DATE: 03/23/2020 REASON FOR ADMISSION TO THE HOSPITAL: 1. Pneumonia. 2. Diarrhea, possible gastroenteritis. 3. History of chronic lymphocytic leukemia, getting chemotherapy. HISTORY OF PRESENT ILLNESS: The patient is a 54-year-old male, patient has a CLL, sees Dr. Uribe. He gets chemotherapy and Imbruvica and the patient says he is not feeling well for a couple of days, noticed some abdominal discomfort, diarrhea and also was found to have fever, not feeling well, was seen in the Emergency Room yesterday, had a CT scan, which shows nonspecific changes in the colon, but it picked up some infiltrates in the lung. Chest x-ray shows some small lung nodule. Because of the infiltrates in the lung, patient had also fever of 101, was admitted with diagnosis of possible pneumonia, rule out COVID and also rule out opportunistic infections. PAST MEDICAL HISTORY: As mentioned in history of diabetes, hypertension, chronic kidney disease, CLL, previous stroke and diastolic heart failure, coronary artery disease. PAST SURGICAL HISTORY: Carpal tunnel release, rotator cuff surgery, had a cardiac cath in the past. ALLERGIES: No known allergies. FAMILY HISTORY: Positive for diabetes, heart disease, stroke. SOCIAL HISTORY: Smokes. Social alcohol. Denies any street drugs. MEDICATIONS AT HOME: The patient is on aspirin 325 daily, atorvastatin 40 mg daily, eyedrops for glaucoma, Combigan eyedrops twice a day, Coreg 3.125 twice a day, Plavix 75 mg daily, Trulicity 0.75 injection subcutaneous weekly, Lasix 20 mg daily, gabapentin 300 mg 3 times daily, losartan 100/12.5 daily, Lotemax eyedrops twice a day, prednisone eye drops twice a day. As mentioned, he gets chemotherapy. He is on Imbruvica 3 capsules daily for leukemia. He is also on Janumet one tablet twice a day. REVIEW OF SYMPTOMS: Complains of shortness of breath, fever and also abdominal discomfort, diarrhea. Rest of the 14-system was reviewed and negative. PHYSICAL EXAMINATION: VITAL SIGNS: At the time of admission shows a temperature 102, pulse 85, respirations 24, blood pressure 154/72, 95 on room air. HEENT: Head is atraumatic. Pupils equal. Oral cavity: No congestion. NECK: Supple. Thyroid not enlarged. JVD is not elevated. CHEST: Symmetrical. CARDIOVASCULAR: S1, S2. LUNGS: Clear to auscultation. ABDOMEN: Soft, nontender. Bowel sounds present. EXTERNAL GENITALIA: No [place]. RECTAL: Deferred. EXTREMITIES: No calf tenderness, no edema. NEUROLOGIC: The patient has a previous left sided hemiparesis from stroke. Otherwise, no new problems noted. LABORATORY DATA: Shows a white count 8, hemoglobin 11, platelets 132. INR 1.1. Electrolytes show sodium 131, potassium 4.3, chloride 98, bicarbonate 26, anion gap 7, BUN 27, creatinine 2.2. Cholesterol is good. Thyroid is good. Troponin is 0.1, peaked to 0.14. Chest x-ray shows 1 cm nodule in the right lung base. Abdominal pelvic CT scan shows infiltrates in the right middle lobe and both bases. FINAL IMPRESSION: 1. Pneumonia, could be gram-positive, gram-negative. The patient is immune compressed from chemotherapy for chronic lymphocytic leukemia. 2. Rule out COVID infection. 3. Chronic kidney disease, acute on chronic with worsening kidney failure. 4. Diabetes, non-insulin dependent type 2. 5. History of previous stroke. 6. Coronary artery disease, stable. 7. Previous stroke, left hemiparesis, stable. PLAN: At this time, was admit to hospital, hydrate with IV fluids and COVID was sent. The patient was started on broad-spectrum antibiotics, Zyvox and Zosyn and also monitor kidney function. DVT prophylaxis. Hold Janumet secondary to kidney failure and see how he improves. Also we will check stool for C diff. DENTON MCKEON MD DR: SAULO/godfrey JOB#: [id number] / [id number]
--- NOTE | 2020-03-24 16:27 | NUR ---
NEL following for discharge planning. Spoke with RN and reviewed chart. Pt from home. Pt FELIX pending. Pt on room air and IV Zosyn. NEL following. Addendum: 03/24/20 at 1628 by VERONICA NEUMANN Pt will likely be admitted through the weekend as he had a fever today. NEL attempted to call into pt's room but there was no answer. Addendum: 03/28/20 at 1047 by VERONICA NEUMANN pt discharged home, self-care. No further NEL needs
--- NOTE | 2020-03-24 18:40 | NUR ---
[facility] in pharmacy called and to put in order for remdesivir x5 days per Dr. Garzon.
[2020-03-24] MEDS ORDERED: REMDESIVIR LOAD in IV NORMAL SALINE 250ML TV IV ONE (19:30)
[2020-03-24 19:47] VITALS: BP 146/70
[2020-03-24] MEDS: ATORVASTATIN CALCIUM 40 MG TABLET. PO SCH (22:05)
[2020-03-24 23:59] VITALS: BP 122/70
[2020-03-25] VITALS (7 sets, daily range): BP systolic 123–149; BP diastolic 63–84
[2020-03-25] MEDS: PIPERACILLIN/TAZOBACTAM 3.375 GM in IV NORMAL SALINE 50ML 50 ML IV SCH ×5 (00:04→23:51)
[2020-03-25] MEDS: IV NORMAL SALINE 1000ML BAG 1,000 ML IV SCH ×3 (00:05→22:16)
[2020-03-25 04:10] LABS: HEMOGLOBIN A1C 10.4 % (4.8-5.6)
[2020-03-25 04:55] LABS: BASO % 0 % (0-3); EOS % 0 % (0-3); HEMATOCRIT 29.4 % (39.0-53.0); HEMOGLOBIN 9.8 g/dL (13.0-17.5); LYMPH % 34 % (24-48); MEAN CORPUSCULAR HEMOGLOBIN 27 pg (25-35); MEAN CORPUSCULAR HGB CONC 34 g/dL (31-37); MEAN CORPUSCULAR VOLUME 79 fL (79-100); MONO # 0.8 x10^3/uL (0.0-1.1); MONO % 13 % (0-9); NEUT # 3.2 x10^3/uL (1.8-7.7); NEUT % 53 % (31-73); PLATELET COUNT 96 x10^3/uL (140-400); RED BLOOD COUNT 3.71 x10^6/uL (4.30-5.70)
[2020-03-25 05:05] LABS: CALCIUM 7.4 mg/dL (8.5-10.1); CREATININE 2.2 mg/dL (0.7-1.3); GFR 37.8
[2020-03-25] MEDS: ACETAMINOPHEN 325 MG TABLET. PO PRN ×2 (05:17→12:05)
--- NOTE | 2020-03-25 07:55 | PDOC ---
Infectious Disease Note Subjective Subjective Patient is feeling much better ROS ROS No nausea vomiting some diarrhea and fever present Vital Sign Vital Signs Vital Signs Date Time Temp Pulse Resp B/P (MAP) Pulse Ox O2 Delivery O2 Flow Rate FiO2 03/25/20 03:45 101.5 87 24 148/80 (102) 96 Room Air 101.5 Physical Exam PHYSICAL EXAM GENERAL: Alert, oriented gentleman, not in any distress. VITAL SIGNS: Stable HEENT: Both pupils are round and reacting. No conjunctival lesion. No lesion in the mouth. NECK: Supple, no JVP, no lymphadenopathy. LUNGS: Clear. HEART: S1, S2 regular. ABDOMEN: Soft, nontender, no organomegaly. EXTREMITIES: No edema or cyanosis. SKIN: Unremarkable. NEUROLOGIC: The patient is alert, awake and appropriate. No focal neurologic deficit. Labs Lab Laboratory Tests Test 03/24/20 08:00 03/24/20 17:05 03/24/20 21:16 03/25/20 03:30 Glucose (Fingerstick) 161 mg/dL (70-99) 218 mg/dL (70-99) 180 mg/dL (70-99) White Blood Count 6.0 x10^3/uL (4.0-11.0) Red Blood Count 3.71 x10^6/uL (4.30-5.70) Hemoglobin 9.8 g/dL (13.0-17.5) Hematocrit 29.4 % (39.0-53.0) Mean Corpuscular Volume 79 fL (79-100) Mean Corpuscular Hemoglobin 27 pg (25-35) Mean Corpuscular Hemoglobin Concent 34 g/dL (31-37) Red Cell Distribution Width 15.0 % (11.5-14.5) Platelet Count 96 x10^3/uL (140-400) Neutrophils (%) (Auto) 53 % (31-73) Lymphocytes (%) (Auto) 34 % (24-48) Monocytes (%) (Auto) 13 % (0-9) Eosinophils (%) (Auto) 0 % (0-3) Basophils (%) (Auto) 0 % (0-3) Neutrophils # (Auto) 3.2 x10^3/uL (1.8-7.7) Lymphocytes # (Auto) 2.0 x10^3/uL (1.0-4.8) Monocytes # (Auto) 0.8 x10^3/uL (0.0-1.1) Eosinophils # (Auto) 0.0 x10^3/uL (0.0-0.7) Basophils # (Auto) 0.0 x10^3/uL (0.0-0.2) Sodium Level 131 mmol/L (136-145) Potassium Level 4.0 mmol/L (3.5-5.1) Chloride Level 99 mmol/L (98-107) Carbon Dioxide Level 25 mmol/L (21-32) Anion Gap 7 (6-14) Blood Urea Nitrogen 28 mg/dL (8-26) Creatinine 2.2 mg/dL (0.7-1.3) Estimated GFR (Cockcroft-Gault) 37.8 Glucose Level 215 mg/dL (70-99) Calcium Level 7.4 mg/dL (8.5-10.1) Micro Microbiology 03/23/20 Blood Culture - Preliminary, Resulted NO GROWTH AFTER 1 DAY Objective Assessment IMPRESSION: 1. Pulmonary infiltrate, rule out COVID-19. 2. Fever. 3. Immunosuppression. 4. Renal insufficiency. 5. Diabetes. 6. Hypertension. 7. Coronary artery disease. Plan Plan of Care Continue antibiotics and remdesivir Continue supportive care POLI PELAYO MD Mar 25, 2020 07:55
--- NOTE | 2020-03-25 08:05 | PDOC ---
PULMONARY PROGRESS NOTES DATE: 03/25/20 TIME: 08:01 Subjective on RA sob better, Vitals Vital Signs Date Time Temp Pulse Resp B/P (MAP) Pulse Ox O2 Delivery O2 Flow Rate FiO2 03/25/20 03:45 101.5 87 24 148/80 (102) 96 Room Air 101.5 Comments alert NC AT RRR no accessory muscle use no rash Labs Laboratory Tests Test 03/23/20 11:30 03/23/20 12:15 03/23/20 14:50 03/23/20 15:55 White Blood Count 8.4 x10^3/uL (4.0-11.0) Red Blood Count 4.39 x10^6/uL (4.30-5.70) Hemoglobin 11.6 g/dL (13.0-17.5) Hematocrit 34.7 % (39.0-53.0) Mean Corpuscular Volume 79 fL (79-100) Mean Corpuscular Hemoglobin 26 pg (25-35) Mean Corpuscular Hemoglobin Concent 33 g/dL (31-37) Red Cell Distribution Width 14.9 % (11.5-14.5) Platelet Count 132 x10^3/uL (140-400) Neutrophils (%) (Auto) 51 % (31-73) Lymphocytes (%) (Auto) 35 % (24-48) Monocytes (%) (Auto) 14 % (0-9) Eosinophils (%) (Auto) 0 % (0-3) Basophils (%) (Auto) 1 % (0-3) Neutrophils # (Auto) 4.3 x10^3/uL (1.8-7.7) Lymphocytes # (Auto) 2.9 x10^3/uL (1.0-4.8) Monocytes # (Auto) 1.2 x10^3/uL (0.0-1.1) Eosinophils # (Auto) 0.0 x10^3/uL (0.0-0.7) Basophils # (Auto) 0.1 x10^3/uL (0.0-0.2) Prothrombin Time 13.4 SEC (11.7-14.0) Prothromb Time International Ratio 1.1 (0.8-1.1) Activated Partial Thromboplast Time 35 SEC (24-38) Sodium Level 132 mmol/L (136-145) Potassium Level 4.4 mmol/L (3.5-5.1) Chloride Level 99 mmol/L (98-107) Carbon Dioxide Level 25 mmol/L (21-32) Anion Gap 8 (6-14) Blood Urea Nitrogen 25 mg/dL (8-26) Creatinine 2.0 mg/dL (0.7-1.3) Estimated GFR (Cockcroft-Gault) 42.2 BUN/Creatinine Ratio 13 (6-20) Glucose Level 182 mg/dL (70-99) Lactic Acid Level 1.2 mmol/L (0.4-2.0) Calcium Level 8.2 mg/dL (8.5-10.1) Magnesium Level 2.1 mg/dL (1.8-2.4) Total Bilirubin 0.4 mg/dL (0.2-1.0) Aspartate Amino Transf (AST/SGOT) 23 U/L (15-37) Alanine Aminotransferase (ALT/SGPT) 20 U/L (16-63) Alkaline Phosphatase 49 U/L (46-116) Creatine Kinase 180 U/L (39-308) Creatine Kinase MB (Mass) 2.2 ng/mL (0.0-3.6) Creatine Kinase MB Relative Index 1.2 % (0-4) Troponin I Quantitative 0.122 ng/mL (0.000-0.055) 0.132 ng/mL (0.000-0.055) Total Protein 6.6 g/dL (6.4-8.2) Albumin 3.1 g/dL (3.4-5.0) Albumin/Globulin Ratio 0.9 (1.0-1.7) Lipase 261 U/L (73-393) Procalcitonin < 0.10 ng/mL (0.00-0.10) Thyroid Stimulating Hormone (TSH) 2.597 uIU/mL (0.358-3.74) Coronavirus (PCR) Detected (Not Detected) Urine Collection Type Unknown Urine Color Yellow Urine Clarity Clear Urine pH 5.0 (<5.0-8.0) Urine Specific Deport 1.010 (1.000-1.030) Urine Protein Negative mg/dL (NEG-TRACE) Urine Glucose (UA) Negative mg/dL (NEG) Urine Ketones (Stick) Negative mg/dL (NEG) Urine Blood Negative (NEG) Urine Nitrite Negative (NEG) Urine Bilirubin Negative (NEG) Urine Urobilinogen Dipstick 0.2 mg/dL (0.2 mg/dL) Urine Leukocyte Esterase Negative (NEG) Urine RBC 0 /HPF (0-2) Urine WBC 0 /HPF (0-4) Urine Bacteria 0 /HPF (0-FEW) Urine Hyaline Casts Few /HPF Test 03/23/20 16:57 03/23/20 18:00 03/23/20 20:54 03/24/20 04:00 Glucose (Fingerstick) 216 mg/dL (70-99) 272 mg/dL (70-99) Troponin I Quantitative 0.147 ng/mL (0.000-0.055) White Blood Count 7.2 x10^3/uL (4.0-11.0) Red Blood Count 3.99 x10^6/uL (4.30-5.70) Hemoglobin 10.4 g/dL (13.0-17.5) Hematocrit 31.8 % (39.0-53.0) Mean Corpuscular Volume 80 fL (79-100) Mean Corpuscular Hemoglobin 26 pg (25-35) Mean Corpuscular Hemoglobin Concent 33 g/dL (31-37) Red Cell Distribution Width 14.6 % (11.5-14.5) Platelet Count 113 x10^3/uL (140-400) Neutrophils (%) (Auto) 53 % (31-73) Lymphocytes (%) (Auto) 31 % (24-48) Monocytes (%) (Auto) 16 % (0-9) Eosinophils (%) (Auto) 0 % (0-3) Basophils (%) (Auto) 0 % (0-3) Neutrophils # (Auto) 3.9 x10^3/uL (1.8-7.7) Lymphocytes # (Auto) 2.3 x10^3/uL (1.0-4.8) Monocytes # (Auto) 1.1 x10^3/uL (0.0-1.1) Eosinophils # (Auto) 0.0 x10^3/uL (0.0-0.7) Basophils # (Auto) 0.0 x10^3/uL (0.0-0.2) Sodium Level 131 mmol/L (136-145) Potassium Level 4.3 mmol/L (3.5-5.1) Chloride Level 98 mmol/L (98-107) Carbon Dioxide Level 26 mmol/L (21-32) Anion Gap 7 (6-14) Blood Urea Nitrogen 27 mg/dL (8-26) Creatinine 2.2 mg/dL (0.7-1.3) Estimated GFR (Cockcroft-Gault) 37.8 BUN/Creatinine Ratio 12 (6-20) Glucose Level 167 mg/dL (70-99) Hemoglobin A1c 10.4 % (4.8-5.6) Calcium Level 7.8 mg/dL (8.5-10.1) Total Bilirubin 0.3 mg/dL (0.2-1.0) Aspartate Amino Transf (AST/SGOT) 19 U/L (15-37) Alanine Aminotransferase (ALT/SGPT) 16 U/L (16-63) Alkaline Phosphatase 42 U/L (46-116) Total Protein 5.6 g/dL (6.4-8.2) Albumin 2.4 g/dL (3.4-5.0) Albumin/Globulin Ratio 0.8 (1.0-1.7) Triglycerides Level 106 mg/dL (0-150) Cholesterol Level 120 mg/dL (0-200) LDL Cholesterol, Calculated 72 mg/dL (0-100) VLDL Cholesterol, Calculated 21 mg/dL (0-40) Non-HDL Cholesterol Calculated 93 mg/dL (0-129) HDL Cholesterol 27 mg/dL (40-60) Cholesterol/HDL Ratio 4.4 Thyroid Stimulating Hormone (TSH) 2.637 uIU/mL (0.358-3.74) Test 03/24/20 08:00 03/24/20 17:05 03/24/20 21:16 03/25/20 03:30 Glucose (Fingerstick) 161 mg/dL (70-99) 218 mg/dL (70-99) 180 mg/dL (70-99) White Blood Count 6.0 x10^3/uL (4.0-11.0) Red Blood Count 3.71 x10^6/uL (4.30-5.70) Hemoglobin 9.8 g/dL (13.0-17.5) Hematocrit 29.4 % (39.0-53.0) Mean Corpuscular Volume 79 fL (79-100) Mean Corpuscular Hemoglobin 27 pg (25-35) Mean Corpuscular Hemoglobin Concent 34 g/dL (31-37) Red Cell Distribution Width 15.0 % (11.5-14.5) Platelet Count 96 x10^3/uL (140-400) Neutrophils (%) (Auto) 53 % (31-73) Lymphocytes (%) (Auto) 34 % (24-48) Monocytes (%) (Auto) 13 % (0-9) Eosinophils (%) (Auto) 0 % (0-3) Basophils (%) (Auto) 0 % (0-3) Neutrophils # (Auto) 3.2 x10^3/uL (1.8-7.7) Lymphocytes # (Auto) 2.0 x10^3/uL (1.0-4.8) Monocytes # (Auto) 0.8 x10^3/uL (0.0-1.1) Eosinophils # (Auto) 0.0 x10^3/uL (0.0-0.7) Basophils # (Auto) 0.0 x10^3/uL (0.0-0.2) Sodium Level 131 mmol/L (136-145) Potassium Level 4.0 mmol/L (3.5-5.1) Chloride Level 99 mmol/L (98-107) Carbon Dioxide Level 25 mmol/L (21-32) Anion Gap 7 (6-14) Blood Urea Nitrogen 28 mg/dL (8-26) Creatinine 2.2 mg/dL (0.7-1.3) Estimated GFR (Cockcroft-Gault) 37.8 Glucose Level 215 mg/dL (70-99) Calcium Level 7.4 mg/dL (8.5-10.1) Laboratory Tests Test 03/24/20 17:05 03/24/20 21:16 03/25/20 03:30 Glucose (Fingerstick) 218 mg/dL (70-99) 180 mg/dL (70-99) White Blood Count 6.0 x10^3/uL (4.0-11.0) Red Blood Count 3.71 x10^6/uL (4.30-5.70) Hemoglobin 9.8 g/dL (13.0-17.5) Hematocrit 29.4 % (39.0-53.0) Mean Corpuscular Volume 79 fL (79-100) Mean Corpuscular Hemoglobin 27 pg (25-35) Mean Corpuscular Hemoglobin Concent 34 g/dL (31-37) Red Cell Distribution Width 15.0 % (11.5-14.5) Platelet Count 96 x10^3/uL (140-400) Neutrophils (%) (Auto) 53 % (31-73) Lymphocytes (%) (Auto) 34 % (24-48) Monocytes (%) (Auto) 13 % (0-9) Eosinophils (%) (Auto) 0 % (0-3) Basophils (%) (Auto) 0 % (0-3) Neutrophils # (Auto) 3.2 x10^3/uL (1.8-7.7) Lymphocytes # (Auto) 2.0 x10^3/uL (1.0-4.8) Monocytes # (Auto) 0.8 x10^3/uL (0.0-1.1) Eosinophils # (Auto) 0.0 x10^3/uL (0.0-0.7) Basophils # (Auto) 0.0 x10^3/uL (0.0-0.2) Sodium Level 131 mmol/L (136-145) Potassium Level 4.0 mmol/L (3.5-5.1) Chloride Level 99 mmol/L (98-107) Carbon Dioxide Level 25 mmol/L (21-32) Anion Gap 7 (6-14) Blood Urea Nitrogen 28 mg/dL (8-26) Creatinine 2.2 mg/dL (0.7-1.3) Estimated GFR (Cockcroft-Gault) 37.8 Glucose Level 215 mg/dL (70-99) Calcium Level 7.4 mg/dL (8.5-10.1) Medications Active Scripts Medications Dose Route/Sig Max Daily Dose Days Date Category Dose Instructions Combigan Eye Drops (Brimonidine Tartrate/Timolol) 5 Ml Drops 5 Ml OP BID 05/01/19 Reported Lotemax (Loteprednol Etabonate) 5 Gm Gel..gram. 1 Drop EACHEYE BID 05/01/19 Reported Imbruvica (Ibrutinib) 140 Mg Capsule 3 Cap PO DAILY 30 05/01/19 Reported Furosemide 20 Mg Tablet 1 Tab PO DAILY 05/01/19 Reported Hydrochlorothiazide Tablet (Hydrochlorothiazide) 12.5 Mg Tablet 12.5 Mg PO DAILY 05/01/19 Reported Coreg (Carvedilol) 3.125 Mg Tablet 3.125 Mg PO BIDWMEALS 30 11/19/18 Rx Prednisolone Acetate 5 Ml Drops.susp 1 Drop LEFTEYE BID 11/18/18 Reported Atorvastatin Calcium 40 Mg Tablet 1 Tab PO QHS 10/23/18 Reported Clopidogrel (Clopidogrel Bisulfate) 75 Mg Tablet 1 Tab PO DAILY 10/23/18 Reported Trulicity (Dulaglutide) 0.75 Mg/0.5 Ml Pen.injctr 5 Units SQ QWEEKLY 08/01/17 Reported takes on Tuesdaysumet 50-1,000 Mg Tablet (Sitagliptin Phos/Metformin Hcl) 1 Each Tablet 1 Tab PO BID 08/01/17 Reported Gabapentin 300 Mg Capsule 300 Mg PO TID 08/01/17 Reported Losartan-Hctz 100-12.5 Mg Tab (Losartan/Hydrochlorothiazide) 1 Each Tablet 1 Tab PO DAILY 03/13/17 Reported Aspirin 325 Mg Tablet 1 Tab PO DAILY 04/21/15 Reported Impression . IMPRESSION: 1. Abnormal chest x-ray and CT revealing bilateral pulmonary infiltrates, suspect gram-negative or gram-positive pneumonia, COVID-19. 2. Chronic lymphocytic leukemia, currently being treated with Imbruvica, known to cause pneumonia and possible pneumonitis. 3. Type 2 diabetes. 4. Hypertension. 5. Elevated troponin level. 6. Myalgias, arthralgias and fever could be related to either sepsis or adverse reaction to the medication. 7. Chronic systolic heart failure. 8. History of cerebrovascular accident. 9. Diarrhea. 10. Recent epistaxis. Plan . PLAN: 1. Continue support with current antibiotics per id. 2. DVT prophylaxis. 3. Obtain CT chest with no contrast. 4. SARS-CoV-2 5. Blood cultures for temperature above 100. 6. remdesivir 7. add steroid 8. 02 titration discussed w JULIO Barry MD Mar 25, 2020 08:04
[2020-03-25] MEDS: methylPREDNISolone SOD SUCC PF 40 MG/ML VIAL. IV SCH ×2 (08:52→22:14)
[2020-03-25] MEDS: BRIMONIDINE 0.2% OPHTH SOLUTION 5ML BOTTLE. OD SCH ×2 (08:54→22:15)
[2020-03-25] MEDS: TIMOLOL 0.25% OPHTH SOLUTION 5ML BOTTLE. OU SCH ×2 (08:54→22:15)
[2020-03-25] MEDS: ASPIRIN ENTERIC COATED 81 MG TABLET.DR. PO SCH (08:58)
[2020-03-25] MEDS: CARVEDILOL 3.125 MG TABLET. PO SCH ×2 (09:00→17:59)
[2020-03-25] MEDS: GABAPENTIN 300 MG CAPSULE. PO SCH ×3 (09:00→22:15)
[2020-03-25] MEDS: NON FORMULARY ITEM (Loteprednol Etabonate (Lotemax) 1 DROP) EACHEYE SCH ×2 (09:00→21:00)
[2020-03-25] MEDS: ENOXAPARIN 40 MG/0.4 ML SYRINGE. SQ SCH (09:01)
[2020-03-25] MEDS: INSULIN LISPRO 300 UNITS/3 ML VIAL. SQ SCH ×3 (09:02→17:59)
--- NOTE | 2020-03-25 10:16 | PDOC ---
IM PROGRESS NOTES- Subjective Subjective He continues to run high-grade fever. No complaints of cough, congestion or dyspnea. Admits to occasional diarrhea. Objective Vitals/I&O Vital Signs Date Time Temp Pulse Resp B/P (MAP) Pulse Ox O2 Delivery O2 Flow Rate FiO2 03/25/20 09:00 84 134/72 03/25/20 03:45 101.5 24 96 Room Air 101.5 I & O 03/24/20 03/24/20 03/25/20 15:00 23:00 07:00 Intake Total 350 ml 310 ml 800 ml Balance 350 ml 310 ml 800 ml Physical Exam Physical Exam General appearance - alert, not in any acute distress Chest -decreased breath sounds at bases Heart - S1 and S2 normal Abdomen - soft, nontender Neurological - alert and oriented Extremities - no pedal edema Skin - warm and dry Labs Laboratory Tests Test 03/24/20 17:05 03/24/20 21:16 03/25/20 03:30 03/25/20 08:22 Glucose (Fingerstick) 218 mg/dL (70-99) H 180 mg/dL (70-99) H 276 mg/dL (70-99) H White Blood Count 6.0 x10^3/uL (4.0-11.0) Red Blood Count 3.71 x10^6/uL (4.30-5.70) L Hemoglobin 9.8 g/dL (13.0-17.5) L Hematocrit 29.4 % (39.0-53.0) L Mean Corpuscular Volume 79 fL (79-100) Mean Corpuscular Hemoglobin 27 pg (25-35) Mean Corpuscular Hemoglobin Concent 34 g/dL (31-37) Red Cell Distribution Width 15.0 % (11.5-14.5) H Platelet Count 96 x10^3/uL (140-400) L Neutrophils (%) (Auto) 53 % (31-73) Lymphocytes (%) (Auto) 34 % (24-48) Monocytes (%) (Auto) 13 % (0-9) H Eosinophils (%) (Auto) 0 % (0-3) Basophils (%) (Auto) 0 % (0-3) Neutrophils # (Auto) 3.2 x10^3/uL (1.8-7.7) Lymphocytes # (Auto) 2.0 x10^3/uL (1.0-4.8) Monocytes # (Auto) 0.8 x10^3/uL (0.0-1.1) Eosinophils # (Auto) 0.0 x10^3/uL (0.0-0.7) Basophils # (Auto) 0.0 x10^3/uL (0.0-0.2) Sodium Level 131 mmol/L (136-145) L Potassium Level 4.0 mmol/L (3.5-5.1) Chloride Level 99 mmol/L (98-107) Carbon Dioxide Level 25 mmol/L (21-32) Anion Gap 7 (6-14) Blood Urea Nitrogen 28 mg/dL (8-26) H Creatinine 2.2 mg/dL (0.7-1.3) H Estimated GFR (Cockcroft-Gault) 37.8 Glucose Level 215 mg/dL (70-99) H Calcium Level 7.4 mg/dL (8.5-10.1) L Laboratory Tests 03/25/20 03:30 Laboratory Tests 03/25/20 03:30 Meds Current Medications Medications (Trade) Dose Ordered Sig/Irina Route PRN Reason Start Time Stop Time Status Last Admin Dose Admin Remdesivir 200 mg/ Sodium Chloride 210 ml @ 210 mls/hr 1X ONCE IV 03/24/20 19:30 03/24/20 20:29 DC 03/24/20 20:32 Acetaminophen (Tylenol) 650 mg PRN Q6HRS PRN PO FEVER > 100.3'F 03/24/20 21:45 03/25/20 05:17 Methylprednisolone Sodium Succinate (SOLU-Medrol 40MG VIAL) 40 mg Q12HR IV 03/25/20 09:00 03/25/20 08:52 Assessment Assessment 1. Pneumonia, could be gram-positive, gram-negative. The patient is immune compressed from chemotherapy for chronic lymphocytic leukemia. 2. COVID-19 pneumonia. 3. Chronic kidney disease, acute on chronic with worsening kidney failure. 4. Diabetes, non-insulin dependent type 2. 5. History of previous stroke. 6. Coronary artery disease, stable. 7. Previous stroke, left hemiparesis, stable. Plan Continue IV Zosyn, Zyvox. Continue remdesivir and steroids. Consultation has been obtained with Dr. Davie Garzon and Dr. Bc Gonzalez. Please refer to the orders for further details. Plan Plan For more details regarding further plans, please refer to the orders. Justifications for Admission Other Justification LISA VERA MD Mar 25, 2020 10:16
--- NOTE | 2020-03-25 14:07 | PDOC ---
PROGRESS NOTES Date of Service: DATE: 03/25/20 TIME: 14:04 Subjective Subjective Continues to be febrile. Dyspnea improved. Objective Objective Vital Signs Date Time Temp Pulse Resp B/P (MAP) Pulse Ox O2 Delivery O2 Flow Rate FiO2 03/25/20 11:05 100.1 82 25 149/78 (101) 98 Room Air 100.1 Intake and Output 03/25/20 07:00 Intake Total 1460 ml Balance 1460 ml Intake Oral 500 ml IV Total 960 ml # Bowel Movements 1 Physical Exam Abdomen: Soft Heart: Regular rate (SR) Extremities: No cyanosis, Other (1-2+ bilateral LE pitting edema) General: Alert, No acute distress HEENT: Atraumatic Lungs: Other (diminished) Psych/Mental Status: Mental status NL Assessment Assessment 1. RML CAP. Continue current treatment per pulmonary and ID teams. 2. Diarrhea/myalgia: Treat per IM. 3. Recent Epistaxis. Plavix stopped. 4. CLL: on imbruvica 5. AUGUSTO on CKD3: prerenal. 6. Elevated troponin: initial at 0.2, No acute EKG changes, no cardiac symptoms. Suspect demand mediated, type 2. We will check 2D echocardiogram if Covid test is negative. 7. DM2: per xim 8. CAD: past PCI/NAKUL to LAD, chest pain-free 9. ICM: prior EF at 30-35%. He decided not to have AICD last yr. No clinical evidence for fluid overload. 10. HTN: controlled 11. HLP: Statins Plan Plan of Care Problems Medical Problems: (1) NSTEMI (non-ST elevated myocardial infarction) Status: Acute (2) Person under investigation for COVID-19 Status: Acute (3) Right lower lobe pneumonia Status: Acute Comment Review of Relevant I have reviewed the following items lisandra (where applicable) has been applied. Labs Laboratory Tests Test 03/24/20 17:05 03/24/20 21:16 03/25/20 03:30 03/25/20 08:22 Glucose (Fingerstick) 218 mg/dL (70-99) 180 mg/dL (70-99) 276 mg/dL (70-99) White Blood Count 6.0 x10^3/uL (4.0-11.0) Red Blood Count 3.71 x10^6/uL (4.30-5.70) Hemoglobin 9.8 g/dL (13.0-17.5) Hematocrit 29.4 % (39.0-53.0) Mean Corpuscular Volume 79 fL (79-100) Mean Corpuscular Hemoglobin 27 pg (25-35) Mean Corpuscular Hemoglobin Concent 34 g/dL (31-37) Red Cell Distribution Width 15.0 % (11.5-14.5) Platelet Count 96 x10^3/uL (140-400) Neutrophils (%) (Auto) 53 % (31-73) Lymphocytes (%) (Auto) 34 % (24-48) Monocytes (%) (Auto) 13 % (0-9) Eosinophils (%) (Auto) 0 % (0-3) Basophils (%) (Auto) 0 % (0-3) Neutrophils # (Auto) 3.2 x10^3/uL (1.8-7.7) Lymphocytes # (Auto) 2.0 x10^3/uL (1.0-4.8) Monocytes # (Auto) 0.8 x10^3/uL (0.0-1.1) Eosinophils # (Auto) 0.0 x10^3/uL (0.0-0.7) Basophils # (Auto) 0.0 x10^3/uL (0.0-0.2) Sodium Level 131 mmol/L (136-145) Potassium Level 4.0 mmol/L (3.5-5.1) Chloride Level 99 mmol/L (98-107) Carbon Dioxide Level 25 mmol/L (21-32) Anion Gap 7 (6-14) Blood Urea Nitrogen 28 mg/dL (8-26) Creatinine 2.2 mg/dL (0.7-1.3) Estimated GFR (Cockcroft-Gault) 37.8 Glucose Level 215 mg/dL (70-99) Calcium Level 7.4 mg/dL (8.5-10.1) Test 03/25/20 11:04 Glucose (Fingerstick) 332 mg/dL (70-99) Microbiology 03/23/20 Blood Culture - Preliminary, Resulted NO GROWTH AFTER 2 DAYS Medications Current Medications Acetaminophen (Tylenol) 650 mg PRN Q6HRS PRN PO FEVER > 100.3'F Last administered on 03/25/20at 12:05; Start 03/24/20 at 21:45 Methylprednisolone Sodium Succinate (SOLU-Medrol 40MG VIAL) 40 mg Q12HR IV Last administered on 03/25/20at 08:52; Start 03/25/20 at 09:00 Remdesivir 100 mg/ Sodium Chloride 230 ml @ 460 mls/hr Q24H IV ; Start 03/25/20 at 16:00; Stop 03/28/20 at 16:29 Remdesivir 200 mg/ Sodium Chloride 210 ml @ 210 mls/hr 1X ONCE IV Last administered on 03/24/20at 20:32; Start 03/24/20 at 19:30; Stop 03/24/20 at 20:29; Status DC Vitals/I & O Vital Sign - Last 24 Hours 03/24/20 03/24/20 03/24/20 03/24/20 15:00 17:39 19:47 20:00 Temp 100.3 102.8 100.3 102.8 Pulse 85 85 93 Resp 22 16 B/P (MAP) 132/70 (90) 132/70 146/70 (95) Pulse Ox 95 95 O2 Delivery Room Air Room Air Room Air 03/24/20 03/25/20 03/25/20 03/25/20 21:37 00:24 03:45 07:05 Temp 101.0 100.2 101.5 100.5 101.0 100.2 101.5 100.5 Pulse 85 87 84 Resp 18 24 29 B/P (MAP) 123/63 (83) 148/80 (102) 134/72 (92) Pulse Ox 95 96 97 O2 Delivery Room Air Room Air Room Air 03/25/20 03/25/20 03/25/20 07:50 09:00 11:05 Temp 100.1 100.1 Pulse 84 82 Resp 25 B/P (MAP) 134/72 149/78 (101) Pulse Ox 98 O2 Delivery Room Air Room Air Intake and Output 03/24/20 03/24/20 03/25/20 15:00 23:00 07:00 Intake Total 350 ml 310 ml 800 ml Balance 350 ml 310 ml 800 ml MANNY DAVENPORT MD Mar 25, 2020 14:07
[2020-03-25] MEDS ORDERED: REMDESIVIR 100mg in NORMAL SALINE 250ML X 4 DAYS IV SCH (16:00)
[2020-03-25] MEDS ORDERED: DEXTROSE 50% 25 GM / 50ML DISP.SYRIN. IV PRN (19:30)
[2020-03-25] MEDS ORDERED: INSULIN LISPRO 300 UNITS/3 ML VIAL. SQ ONE (21:00)
[2020-03-25] MEDS: ATORVASTATIN CALCIUM 40 MG TABLET. PO SCH (22:15)
[2020-03-26 03:00] VITALS: BP 138/70
[2020-03-26 04:16] LABS: BASO % 0 % (0-3); EOS % 0 % (0-3); HEMOGLOBIN 10.2 g/dL (13.0-17.5); LYMPH # 1.1 x10^3/uL (1.0-4.8); LYMPH % 25 % (24-48); MEAN CORPUSCULAR HEMOGLOBIN 26 pg (25-35); MEAN CORPUSCULAR HGB CONC 33 g/dL (31-37); MEAN CORPUSCULAR VOLUME 80 fL (79-100); MONO # 0.4 x10^3/uL (0.0-1.1); MONO % 9 % (0-9); NEUT % 66 % (31-73); PLATELET COUNT 105 x10^3/uL (140-400); RED BLOOD COUNT 3.89 x10^6/uL (4.30-5.70); WHITE BLOOD COUNT 4.6 x10^3/uL (4.0-11.0)
[2020-03-26 04:53] LABS: ALBUMIN 2.4 g/dL (3.4-5.0); ALBUMIN/GLOBULIN RATIO 0.7 (1.0-1.7); CALCIUM 7.4 mg/dL (8.5-10.1); CREATININE 2.2 mg/dL (0.7-1.3); GFR 37.8; POTASSIUM 4.6 mmol/L (3.5-5.1); TOTAL BILIRUBIN 0.2 mg/dL (0.2-1.0)
[2020-03-26] MEDS: PIPERACILLIN/TAZOBACTAM 3.375 GM in IV NORMAL SALINE 50ML 50 ML IV SCH (05:29)
[2020-03-26 07:00] VITALS: BP 168/102
[2020-03-26] MEDS: NON FORMULARY ITEM (Loteprednol Etabonate (Lotemax) 1 DROP) EACHEYE SCH (07:22)
--- NOTE | 2020-03-26 09:09 | PDOC ---
PULMONARY PROGRESS NOTES DATE: 03/26/20 TIME: 09:08 Subjective on RA sob better, feels better Vitals Vital Signs Date Time Temp Pulse Resp B/P (MAP) Pulse Ox O2 Delivery O2 Flow Rate FiO2 03/26/20 03:00 98.0 79 19 138/70 (92) 96 Room Air 98.0 Comments alert NC AT RRR no accessory muscle use no rash Labs Laboratory Tests Test 03/24/20 17:05 03/24/20 20:00 03/24/20 21:16 03/25/20 03:30 Glucose (Fingerstick) 218 mg/dL (70-99) 180 mg/dL (70-99) Clostridium difficile Toxin (PCR) Negative (NEGATIVE) White Blood Count 6.0 x10^3/uL (4.0-11.0) Red Blood Count 3.71 x10^6/uL (4.30-5.70) Hemoglobin 9.8 g/dL (13.0-17.5) Hematocrit 29.4 % (39.0-53.0) Mean Corpuscular Volume 79 fL (79-100) Mean Corpuscular Hemoglobin 27 pg (25-35) Mean Corpuscular Hemoglobin Concent 34 g/dL (31-37) Red Cell Distribution Width 15.0 % (11.5-14.5) Platelet Count 96 x10^3/uL (140-400) Neutrophils (%) (Auto) 53 % (31-73) Lymphocytes (%) (Auto) 34 % (24-48) Monocytes (%) (Auto) 13 % (0-9) Eosinophils (%) (Auto) 0 % (0-3) Basophils (%) (Auto) 0 % (0-3) Neutrophils # (Auto) 3.2 x10^3/uL (1.8-7.7) Lymphocytes # (Auto) 2.0 x10^3/uL (1.0-4.8) Monocytes # (Auto) 0.8 x10^3/uL (0.0-1.1) Eosinophils # (Auto) 0.0 x10^3/uL (0.0-0.7) Basophils # (Auto) 0.0 x10^3/uL (0.0-0.2) Sodium Level 131 mmol/L (136-145) Potassium Level 4.0 mmol/L (3.5-5.1) Chloride Level 99 mmol/L (98-107) Carbon Dioxide Level 25 mmol/L (21-32) Anion Gap 7 (6-14) Blood Urea Nitrogen 28 mg/dL (8-26) Creatinine 2.2 mg/dL (0.7-1.3) Estimated GFR (Cockcroft-Gault) 37.8 Glucose Level 215 mg/dL (70-99) Calcium Level 7.4 mg/dL (8.5-10.1) Test 03/25/20 08:22 03/25/20 11:04 03/25/20 16:51 03/25/20 19:58 Glucose (Fingerstick) 276 mg/dL (70-99) 332 mg/dL (70-99) 399 mg/dL (70-99) 402 mg/dL (70-99) Test 03/26/20 03:30 White Blood Count 4.6 x10^3/uL (4.0-11.0) Red Blood Count 3.89 x10^6/uL (4.30-5.70) Hemoglobin 10.2 g/dL (13.0-17.5) Hematocrit 31.0 % (39.0-53.0) Mean Corpuscular Volume 80 fL (79-100) Mean Corpuscular Hemoglobin 26 pg (25-35) Mean Corpuscular Hemoglobin Concent 33 g/dL (31-37) Red Cell Distribution Width 15.0 % (11.5-14.5) Platelet Count 105 x10^3/uL (140-400) Neutrophils (%) (Auto) 66 % (31-73) Lymphocytes (%) (Auto) 25 % (24-48) Monocytes (%) (Auto) 9 % (0-9) Eosinophils (%) (Auto) 0 % (0-3) Basophils (%) (Auto) 0 % (0-3) Neutrophils # (Auto) 3.0 x10^3/uL (1.8-7.7) Lymphocytes # (Auto) 1.1 x10^3/uL (1.0-4.8) Monocytes # (Auto) 0.4 x10^3/uL (0.0-1.1) Eosinophils # (Auto) 0.0 x10^3/uL (0.0-0.7) Basophils # (Auto) 0.0 x10^3/uL (0.0-0.2) Sodium Level 129 mmol/L (136-145) Potassium Level 4.6 mmol/L (3.5-5.1) Chloride Level 98 mmol/L (98-107) Carbon Dioxide Level 21 mmol/L (21-32) Anion Gap 10 (6-14) Blood Urea Nitrogen 35 mg/dL (8-26) Creatinine 2.2 mg/dL (0.7-1.3) Estimated GFR (Cockcroft-Gault) 37.8 BUN/Creatinine Ratio 16 (6-20) Glucose Level 336 mg/dL (70-99) Calcium Level 7.4 mg/dL (8.5-10.1) Total Bilirubin 0.2 mg/dL (0.2-1.0) Aspartate Amino Transf (AST/SGOT) 25 U/L (15-37) Alanine Aminotransferase (ALT/SGPT) 20 U/L (16-63) Alkaline Phosphatase 41 U/L (46-116) Total Protein 6.0 g/dL (6.4-8.2) Albumin 2.4 g/dL (3.4-5.0) Albumin/Globulin Ratio 0.7 (1.0-1.7) Laboratory Tests Test 03/25/20 11:04 03/25/20 16:51 03/25/20 19:58 03/26/20 03:30 Glucose (Fingerstick) 332 mg/dL (70-99) 399 mg/dL (70-99) 402 mg/dL (70-99) White Blood Count 4.6 x10^3/uL (4.0-11.0) Red Blood Count 3.89 x10^6/uL (4.30-5.70) Hemoglobin 10.2 g/dL (13.0-17.5) Hematocrit 31.0 % (39.0-53.0) Mean Corpuscular Volume 80 fL (79-100) Mean Corpuscular Hemoglobin 26 pg (25-35) Mean Corpuscular Hemoglobin Concent 33 g/dL (31-37) Red Cell Distribution Width 15.0 % (11.5-14.5) Platelet Count 105 x10^3/uL (140-400) Neutrophils (%) (Auto) 66 % (31-73) Lymphocytes (%) (Auto) 25 % (24-48) Monocytes (%) (Auto) 9 % (0-9) Eosinophils (%) (Auto) 0 % (0-3) Basophils (%) (Auto) 0 % (0-3) Neutrophils # (Auto) 3.0 x10^3/uL (1.8-7.7) Lymphocytes # (Auto) 1.1 x10^3/uL (1.0-4.8) Monocytes # (Auto) 0.4 x10^3/uL (0.0-1.1) Eosinophils # (Auto) 0.0 x10^3/uL (0.0-0.7) Basophils # (Auto) 0.0 x10^3/uL (0.0-0.2) Sodium Level 129 mmol/L (136-145) Potassium Level 4.6 mmol/L (3.5-5.1) Chloride Level 98 mmol/L (98-107) Carbon Dioxide Level 21 mmol/L (21-32) Anion Gap 10 (6-14) Blood Urea Nitrogen 35 mg/dL (8-26) Creatinine 2.2 mg/dL (0.7-1.3) Estimated GFR (Cockcroft-Gault) 37.8 BUN/Creatinine Ratio 16 (6-20) Glucose Level 336 mg/dL (70-99) Calcium Level 7.4 mg/dL (8.5-10.1) Total Bilirubin 0.2 mg/dL (0.2-1.0) Aspartate Amino Transf (AST/SGOT) 25 U/L (15-37) Alanine Aminotransferase (ALT/SGPT) 20 U/L (16-63) Alkaline Phosphatase 41 U/L (46-116) Total Protein 6.0 g/dL (6.4-8.2) Albumin 2.4 g/dL (3.4-5.0) Albumin/Globulin Ratio 0.7 (1.0-1.7) Medications Active Scripts Medications Dose Route/Sig Max Daily Dose Days Date Category Dose Instructions Combigan Eye Drops (Brimonidine Tartrate/Timolol) 5 Ml Drops 5 Ml OP BID 05/01/19 Reported Lotemax (Loteprednol Etabonate) 5 Gm Gel..gram. 1 Drop EACHEYE BID 05/01/19 Reported Imbruvica (Ibrutinib) 140 Mg Capsule 3 Cap PO DAILY 30 05/01/19 Reported Furosemide 20 Mg Tablet 1 Tab PO DAILY 05/01/19 Reported Hydrochlorothiazide Tablet (Hydrochlorothiazide) 12.5 Mg Tablet 12.5 Mg PO DAILY 05/01/19 Reported Coreg (Carvedilol) 3.125 Mg Tablet 3.125 Mg PO BIDWMEALS 30 11/19/18 Rx Prednisolone Acetate 5 Ml Drops.susp 1 Drop LEFTEYE BID 11/18/18 Reported Atorvastatin Calcium 40 Mg Tablet 1 Tab PO QHS 10/23/18 Reported Clopidogrel (Clopidogrel Bisulfate) 75 Mg Tablet 1 Tab PO DAILY 10/23/18 Reported Trulicity (Dulaglutide) 0.75 Mg/0.5 Ml Pen.injctr 5 Units SQ QWEEKLY 08/01/17 Reported takes on Tuesdays 50-1,000 Mg Tablet (Sitagliptin Phos/Metformin Hcl) 1 Each Tablet 1 Tab PO BID 08/01/17 Reported Gabapentin 300 Mg Capsule 300 Mg PO TID 08/01/17 Reported Losartan-Hctz 100-12.5 Mg Tab (Losartan/Hydrochlorothiazide) 1 Each Tablet 1 Tab PO DAILY 03/13/17 Reported Aspirin 325 Mg Tablet 1 Tab PO DAILY 04/21/15 Reported Impression . IMPRESSION: 1. Abnormal chest x-ray and CT revealing bilateral pulmonary infiltrates, suspect gram-negative or gram-positive pneumonia, COVID-19. 2. Chronic lymphocytic leukemia, currently being treated with Imbruvica, known to cause pneumonia and possible pneumonitis. 3. Type 2 diabetes. 4. Hypertension. 5. Elevated troponin level. 6. Myalgias, arthralgias and fever could be related to either sepsis or adverse reaction to the medication. 7. Chronic systolic heart failure. 8. History of cerebrovascular accident. 9. Diarrhea. 10. Recent epistaxis. Plan . PLAN: 1. Continue support with current antibiotics per id. 2. DVT prophylaxis. 3. Obtain CT chest with no contrast. 4. SARS-CoV-2 pos 5. Blood cultures for temperature above 100. 6. remdesivir 7. cont steroid 8. 02 titration discussed w JULIO Barry MD Mar 26, 2020 09:09
--- NOTE | 2020-03-26 09:33 | PDOC ---
Infectious Disease Note Subjective Subjective Patient is feeling much better ROS ROS No nausea vomiting diarrhea fever no shortness of breath patient is on room air and walking around without any problem Vital Sign Vital Signs Vital Signs Date Time Temp Pulse Resp B/P (MAP) Pulse Ox O2 Delivery O2 Flow Rate FiO2 03/26/20 03:00 98.0 79 19 138/70 (92) 96 Room Air 98.0 Physical Exam PHYSICAL EXAM GENERAL: Alert, oriented gentleman, not in any distress. VITAL SIGNS: Stable HEENT: Both pupils are round and reacting. No conjunctival lesion. No lesion in the mouth. NECK: Supple, no JVP, no lymphadenopathy. LUNGS: Clear. HEART: S1, S2 regular. ABDOMEN: Soft, nontender, no organomegaly. EXTREMITIES: No edema or cyanosis. SKIN: Unremarkable. NEUROLOGIC: The patient is alert, awake and appropriate. No focal neurologic deficit. Labs Lab Laboratory Tests Test 03/25/20 11:04 03/25/20 16:51 03/25/20 19:58 03/26/20 03:30 Glucose (Fingerstick) 332 mg/dL (70-99) 399 mg/dL (70-99) 402 mg/dL (70-99) White Blood Count 4.6 x10^3/uL (4.0-11.0) Red Blood Count 3.89 x10^6/uL (4.30-5.70) Hemoglobin 10.2 g/dL (13.0-17.5) Hematocrit 31.0 % (39.0-53.0) Mean Corpuscular Volume 80 fL (79-100) Mean Corpuscular Hemoglobin 26 pg (25-35) Mean Corpuscular Hemoglobin Concent 33 g/dL (31-37) Red Cell Distribution Width 15.0 % (11.5-14.5) Platelet Count 105 x10^3/uL (140-400) Neutrophils (%) (Auto) 66 % (31-73) Lymphocytes (%) (Auto) 25 % (24-48) Monocytes (%) (Auto) 9 % (0-9) Eosinophils (%) (Auto) 0 % (0-3) Basophils (%) (Auto) 0 % (0-3) Neutrophils # (Auto) 3.0 x10^3/uL (1.8-7.7) Lymphocytes # (Auto) 1.1 x10^3/uL (1.0-4.8) Monocytes # (Auto) 0.4 x10^3/uL (0.0-1.1) Eosinophils # (Auto) 0.0 x10^3/uL (0.0-0.7) Basophils # (Auto) 0.0 x10^3/uL (0.0-0.2) Sodium Level 129 mmol/L (136-145) Potassium Level 4.6 mmol/L (3.5-5.1) Chloride Level 98 mmol/L (98-107) Carbon Dioxide Level 21 mmol/L (21-32) Anion Gap 10 (6-14) Blood Urea Nitrogen 35 mg/dL (8-26) Creatinine 2.2 mg/dL (0.7-1.3) Estimated GFR (Cockcroft-Gault) 37.8 BUN/Creatinine Ratio 16 (6-20) Glucose Level 336 mg/dL (70-99) Calcium Level 7.4 mg/dL (8.5-10.1) Total Bilirubin 0.2 mg/dL (0.2-1.0) Aspartate Amino Transf (AST/SGOT) 25 U/L (15-37) Alanine Aminotransferase (ALT/SGPT) 20 U/L (16-63) Alkaline Phosphatase 41 U/L (46-116) Total Protein 6.0 g/dL (6.4-8.2) Albumin 2.4 g/dL (3.4-5.0) Albumin/Globulin Ratio 0.7 (1.0-1.7) Micro Microbiology 03/23/20 Blood Culture - Preliminary, Resulted NO GROWTH AFTER 1 DAY Objective Assessment IMPRESSION: 1. Pulmonary infiltrate, rule out COVID-19. 2. Fever. 3. Immunosuppression. 4. Renal insufficiency. 5. Diabetes. 6. Hypertension. 7. Coronary artery disease. Plan Plan of Care Patient can be discharged home from the infectious disease standpoint of view Discontinue antibiotics POLI PELAYO MD Mar 26, 2020 09:33
[2020-03-26] MEDS: INSULIN LISPRO 300 UNITS/3 ML VIAL. SQ SCH ×2 (09:37→12:56)
[2020-03-26] MEDS: ASPIRIN ENTERIC COATED 81 MG TABLET.DR. PO SCH (09:38)
[2020-03-26] MEDS: methylPREDNISolone SOD SUCC PF 40 MG/ML VIAL. IV SCH (09:38)
[2020-03-26] MEDS: ENOXAPARIN 40 MG/0.4 ML SYRINGE. SQ SCH (09:39)
[2020-03-26] MEDS: CARVEDILOL 3.125 MG TABLET. PO SCH (09:39)
[2020-03-26] MEDS: GABAPENTIN 300 MG CAPSULE. PO SCH ×2 (09:39→12:56)
[2020-03-26] MEDS: TIMOLOL 0.25% OPHTH SOLUTION 5ML BOTTLE. OU SCH (09:40)
[2020-03-26] MEDS: BRIMONIDINE 0.2% OPHTH SOLUTION 5ML BOTTLE. OD SCH (09:40)
[2020-03-26 11:00] VITALS: BP 153/105
--- NOTE | 2020-03-26 11:10 | PDOC ---
PROGRESS NOTES Date of Service: DATE: 03/26/20 TIME: 11:08 Subjective Subjective Patient feeling better. Denied any chest pain. Objective Objective Vital Signs Date Time Temp Pulse Resp B/P (MAP) Pulse Ox O2 Delivery O2 Flow Rate FiO2 03/26/20 09:39 70 168/102 03/26/20 07:00 96.1 18 100 Room Air 96.1 Intake and Output 03/26/20 07:00 Output Total 1000 ml Balance -1000 ml Output Urine Total 1000 ml # Voids 7 Physical Exam Abdomen: Soft Heart: Regular rate (SR) Extremities: No cyanosis, Other (1-2+ bilateral LE pitting edema) General: Alert, No acute distress HEENT: Atraumatic Lungs: Other (diminished) Psych/Mental Status: Mental status NL Assessment Assessment 1. RML CAP. Continue current treatment per pulmonary and ID teams. 2. Diarrhea/myalgia: Treat per IM. 3. Recent Epistaxis. Plavix stopped. 4. CLL: on imbruvica 5. [place] on CKD3: prerenal. 6. Elevated troponin: initial at 0.2, No acute EKG changes, no cardiac symptoms. Suspect demand mediated, type 2. Covid test positive. Plan 2D echo as an outpatient. 7. DM2: per xim 8. CAD: past PCI/NAKUL to LAD, chest pain-free 9. ICM: prior EF at 30-35%. He decided not to have AICD last yr. No clinical evidence for fluid overload. 10. HTN: controlled 11. HLP: Statins Plan Plan of Care Problems Medical Problems: (1) NSTEMI (non-ST elevated myocardial infarction) Status: Acute (2) Person under investigation for COVID-19 Status: Acute (3) Right lower lobe pneumonia Status: Acute Comment Review of Relevant I have reviewed the following items lisandra (where applicable) has been applied. Labs Laboratory Tests Test 03/25/20 16:51 03/25/20 19:58 03/26/20 03:30 03/26/20 08:57 Glucose (Fingerstick) 399 mg/dL (70-99) 402 mg/dL (70-99) 327 mg/dL (70-99) White Blood Count 4.6 x10^3/uL (4.0-11.0) Red Blood Count 3.89 x10^6/uL (4.30-5.70) Hemoglobin 10.2 g/dL (13.0-17.5) Hematocrit 31.0 % (39.0-53.0) Mean Corpuscular Volume 80 fL (79-100) Mean Corpuscular Hemoglobin 26 pg (25-35) Mean Corpuscular Hemoglobin Concent 33 g/dL (31-37) Red Cell Distribution Width 15.0 % (11.5-14.5) Platelet Count 105 x10^3/uL (140-400) Neutrophils (%) (Auto) 66 % (31-73) Lymphocytes (%) (Auto) 25 % (24-48) Monocytes (%) (Auto) 9 % (0-9) Eosinophils (%) (Auto) 0 % (0-3) Basophils (%) (Auto) 0 % (0-3) Neutrophils # (Auto) 3.0 x10^3/uL (1.8-7.7) Lymphocytes # (Auto) 1.1 x10^3/uL (1.0-4.8) Monocytes # (Auto) 0.4 x10^3/uL (0.0-1.1) Eosinophils # (Auto) 0.0 x10^3/uL (0.0-0.7) Basophils # (Auto) 0.0 x10^3/uL (0.0-0.2) Sodium Level 129 mmol/L (136-145) Potassium Level 4.6 mmol/L (3.5-5.1) Chloride Level 98 mmol/L (98-107) Carbon Dioxide Level 21 mmol/L (21-32) Anion Gap 10 (6-14) Blood Urea Nitrogen 35 mg/dL (8-26) Creatinine 2.2 mg/dL (0.7-1.3) Estimated GFR (Cockcroft-Gault) 37.8 BUN/Creatinine Ratio 16 (6-20) Glucose Level 336 mg/dL (70-99) Calcium Level 7.4 mg/dL (8.5-10.1) Total Bilirubin 0.2 mg/dL (0.2-1.0) Aspartate Amino Transf (AST/SGOT) 25 U/L (15-37) Alanine Aminotransferase (ALT/SGPT) 20 U/L (16-63) Alkaline Phosphatase 41 U/L (46-116) Total Protein 6.0 g/dL (6.4-8.2) Albumin 2.4 g/dL (3.4-5.0) Albumin/Globulin Ratio 0.7 (1.0-1.7) Microbiology 03/23/20 Blood Culture - Preliminary, Resulted NO GROWTH AFTER 2 DAYS Medications Current Medications Dextrose (Dextrose 50%-Water Syringe) 12.5 gm PRN Q15MIN PRN IV SEE COMMENTS; Start 03/25/20 at 19:30 Insulin Human Lispro (HumaLOG) 0-9 UNITS TIDWMEALS SQ Last administered on 03/26/20at 09:37; Start 03/26/20 at 08:00 Insulin Human Lispro (HumaLOG) 12 units 1X ONCE SQ Last administered on 03/25/20at 22:17; Start 03/25/20 at 21:00; Stop 03/25/20 at 21:01; Status DC Remdesivir 100 mg/ Sodium Chloride 230 ml @ 460 mls/hr Q24H IV Last administered on 03/25/20at 15:57; Start 03/25/20 at 16:00; Stop 03/28/20 at 16:29 Vitals/I & O Vital Sign - Last 24 Hours 03/25/20 03/25/20 03/25/20 03/25/20 15:05 17:59 19:00 19:55 Temp 99.3 98.0 99.3 98.0 Pulse 75 75 77 Resp 15 18 B/P (MAP) 145/84 (104) 145/84 140/72 (94) Pulse Ox 98 96 O2 Delivery Room Air Room Air Room Air 03/25/20 03/26/20 03/26/20 03/26/20 23:00 03:00 07:00 09:39 Temp 98.0 98.0 96.1 98.0 98.0 96.1 Pulse 77 79 70 70 Resp 18 19 18 B/P (MAP) 140/72 (94) 138/70 (92) 168/102 (124) 168/102 Pulse Ox 96 96 100 O2 Delivery Room Air Room Air Room Air Intake and Output 03/25/20 03/25/20 03/26/20 15:00 23:00 07:00 Output Total 1000 ml Balance -1000 ml MANNY DAVENPORT MD Mar 26, 2020 11:10
--- NOTE | 2020-03-26 12:21 | PDOC ---
PROGRESS NOTES Date of Service: DATE: 03/26/20 TIME: 12:19 Subjective Subjective feels good ,want to go home Objective Objective Vital Signs Date Time Temp Pulse Resp B/P (MAP) Pulse Ox O2 Delivery O2 Flow Rate FiO2 03/26/20 09:39 70 168/102 03/26/20 07:00 96.1 18 100 Room Air 96.1 Intake and Output 03/26/20 07:00 Output Total 1000 ml Balance -1000 ml Output Urine Total 1000 ml # Voids 7 Physical Exam Abdomen: Soft Heart: Regular rate (SR) Extremities: No cyanosis, Other (1-2+ bilateral LE pitting edema) General: Alert, No acute distress HEENT: Atraumatic Lungs: Other (diminished) Neuro: Normal speech Psych/Mental Status: Mental status NL Diagnosis Problem List Problems Medical Problems: (1) NSTEMI (non-ST elevated myocardial infarction) Status: Acute (2) Person under investigation for COVID-19 Status: Acute (3) Right lower lobe pneumonia Status: Acute Assessment Assessment 1. Pneumonia, 2. COVID-19 pneumonia. 3. Chronic kidney disease, acute on chronic with worsening kidney failure. 4. Diabetes, non-insulin dependent type 2. 5. History of previous stroke. 6. Coronary artery disease, stable. 7. Previous stroke, left hemiparesis, stable. Plan: d/c home today as per pts request d/c IV Zosyn, Zyvox. done with remdesivir and steroids. Ok with ID to go home Plan Plan of Care Problems Medical Problems: (1) NSTEMI (non-ST elevated myocardial infarction) Status: Acute (2) Person under investigation for COVID-19 Status: Acute (3) Right lower lobe pneumonia Status: Acute Comment Review of Relevant I have reviewed the following items lisandra (where applicable) has been applied. Labs Laboratory Tests Test 03/25/20 16:51 03/25/20 19:58 03/26/20 03:30 03/26/20 08:57 Glucose (Fingerstick) 399 mg/dL (70-99) 402 mg/dL (70-99) 327 mg/dL (70-99) White Blood Count 4.6 x10^3/uL (4.0-11.0) Red Blood Count 3.89 x10^6/uL (4.30-5.70) Hemoglobin 10.2 g/dL (13.0-17.5) Hematocrit 31.0 % (39.0-53.0) Mean Corpuscular Volume 80 fL (79-100) Mean Corpuscular Hemoglobin 26 pg (25-35) Mean Corpuscular Hemoglobin Concent 33 g/dL (31-37) Red Cell Distribution Width 15.0 % (11.5-14.5) Platelet Count 105 x10^3/uL (140-400) Neutrophils (%) (Auto) 66 % (31-73) Lymphocytes (%) (Auto) 25 % (24-48) Monocytes (%) (Auto) 9 % (0-9) Eosinophils (%) (Auto) 0 % (0-3) Basophils (%) (Auto) 0 % (0-3) Neutrophils # (Auto) 3.0 x10^3/uL (1.8-7.7) Lymphocytes # (Auto) 1.1 x10^3/uL (1.0-4.8) Monocytes # (Auto) 0.4 x10^3/uL (0.0-1.1) Eosinophils # (Auto) 0.0 x10^3/uL (0.0-0.7) Basophils # (Auto) 0.0 x10^3/uL (0.0-0.2) Sodium Level 129 mmol/L (136-145) Potassium Level 4.6 mmol/L (3.5-5.1) Chloride Level 98 mmol/L (98-107) Carbon Dioxide Level 21 mmol/L (21-32) Anion Gap 10 (6-14) Blood Urea Nitrogen 35 mg/dL (8-26) Creatinine 2.2 mg/dL (0.7-1.3) Estimated GFR (Cockcroft-Gault) 37.8 BUN/Creatinine Ratio 16 (6-20) Glucose Level 336 mg/dL (70-99) Calcium Level 7.4 mg/dL (8.5-10.1) Total Bilirubin 0.2 mg/dL (0.2-1.0) Aspartate Amino Transf (AST/SGOT) 25 U/L (15-37) Alanine Aminotransferase (ALT/SGPT) 20 U/L (16-63) Alkaline Phosphatase 41 U/L (46-116) Total Protein 6.0 g/dL (6.4-8.2) Albumin 2.4 g/dL (3.4-5.0) Albumin/Globulin Ratio 0.7 (1.0-1.7) Microbiology 03/23/20 Blood Culture - Preliminary, Resulted NO GROWTH AFTER 2 DAYS Medications Current Medications Dextrose (Dextrose 50%-Water Syringe) 12.5 gm PRN Q15MIN PRN IV SEE COMMENTS; Start 03/25/20 at 19:30 Insulin Human Lispro (HumaLOG) 0-9 UNITS TIDWMEALS SQ Last administered on 03/26/20at 09:37; Start 03/26/20 at 08:00 Insulin Human Lispro (HumaLOG) 12 units 1X ONCE SQ Last administered on 03/25/20at 22:17; Start 03/25/20 at 21:00; Stop 03/25/20 at 21:01; Status DC Remdesivir 100 mg/ Sodium Chloride 230 ml @ 460 mls/hr Q24H IV Last administered on 03/25/20at 15:57; Start 03/25/20 at 16:00; Stop 03/28/20 at 16:29 Vitals/I & O Vital Sign - Last 24 Hours 03/25/20 03/25/20 03/25/20 03/25/20 15:05 17:59 19:00 19:55 Temp 99.3 98.0 99.3 98.0 Pulse 75 75 77 Resp 15 18 B/P (MAP) 145/84 (104) 145/84 140/72 (94) Pulse Ox 98 96 O2 Delivery Room Air Room Air Room Air 03/25/20 03/26/20 03/26/20 03/26/20 23:00 03:00 07:00 09:39 Temp 98.0 98.0 96.1 98.0 98.0 96.1 Pulse 77 79 70 70 Resp 18 19 18 B/P (MAP) 140/72 (94) 138/70 (92) 168/102 (124) 168/102 Pulse Ox 96 96 100 O2 Delivery Room Air Room Air Room Air Intake and Output 03/25/20 03/25/20 03/26/20 15:00 23:00 07:00 Output Total 1000 ml Balance -1000 ml Justifications for Admission Other Justification DENTON MCKEON MD Mar 26, 2020 12:21
[2020-03-26] MEDS ORDERED: ASPI-886 PO (12:24)
--- NOTE | 2020-03-26 14:50 | NUR ---
Discharge instructions given to patient regarding follow up appointments. Pt educated on covid-19 discharge instructions, isolation, safety, and hyperglycemia. Pt verbalizes understanding.
== END 2020-03-26 15:00 | disposition home or self-care (01) | DRG 177 ==
LOC: ER 11:00 → ED HOLD 14:38 → 6 SOUTH 16:32
PROVIDERS: ADMIT Internal Medicine; ATTEND Internal Medicine
PROC: XW033E5 Introduction of Remdesivir Anti-infective into Peripheral Vein, Percutaneous Approach, New Technology Group 5 (ICD-10-PCS; principal; 2020-03-25)
DX: U07.1 COVID-19 (principal); I21.4 Non-ST elevation (NSTEMI) myocardial infarction; J12.89 Other viral pneumonia; I13.0 Hypertensive heart and chronic kidney disease with heart failure and stage 1 through stage 4 chronic kidney disease, or unspecified chronic kidney disease; C91.10 Chronic lymphocytic leukemia of B-cell type not having achieved remission; I50.42 Chronic combined systolic (congestive) and diastolic (congestive) heart failure; I69.354 Hemiplegia and hemiparesis following cerebral infarction affecting left non-dominant side; N17.9 Acute kidney failure, unspecified; N18.30 Chronic kidney disease, stage 3 unspecified; E11.22 Type 2 diabetes mellitus with diabetic chronic kidney disease; K21.9 Gastro-esophageal reflux disease without esophagitis; E11.42 Type 2 diabetes mellitus with diabetic polyneuropathy; M19.90 Unspecified osteoarthritis, unspecified site; E78.5 Hyperlipidemia, unspecified; I25.10 Atherosclerotic heart disease of native coronary artery without angina pectoris; J45.909 Unspecified asthma, uncomplicated; Z82.3 Family history of stroke; Z95.5 Presence of coronary angioplasty implant and graft; Z82.49 Family history of ischemic heart disease and other diseases of the circulatory system; Z83.3 Family history of diabetes mellitus
CPT/HCPCS: 36415; 71045; 74177; 80048; 80053; 80061; 81001; 82550; 82553; 82962; 83036; 83605; 83690; 83735; 84145; 84443; 84484; 85025; 85610; 85730; 87040; 87493; 93005; 96365; 96368; 99285; J1650; J1815; J1956; J2020; J2270; J2543; J2920; J7030; J7050; Q9967; U0003; G0378

== ENCOUNTER 2020-03-30 06:27 | Emergency (ER) | payer BC ==
[~2020-03-30] VITALS: Ht 180.3 cm; Wt 113.0 kg
[~2020-03-30 06:27] MED LIST changes: +ASPI-886 PO
[2020-03-30] MEDS ORDERED: IV NORMAL SALINE 500ML BAG 500 ML IV ONE (06:45)
[2020-03-30 06:58] LABS: BASO % 0 % (0-3); EOS % 0 % (0-3); HEMATOCRIT 29.3 % (39.0-53.0); HEMOGLOBIN 9.6 g/dL (13.0-17.5); LYMPH # 1.5 x10^3/uL (1.0-4.8); LYMPH % 11 % (24-48); MEAN CORPUSCULAR HEMOGLOBIN 26 pg (25-35); MEAN CORPUSCULAR HGB CONC 33 g/dL (31-37); MEAN CORPUSCULAR VOLUME 79 fL (79-100); MONO # 2.6 x10^3/uL (0.0-1.1); MONO % 19 % (0-9); NEUT # 9.2 x10^3/uL (1.8-7.7); NEUT % 69 % (31-73); PLATELET COUNT 203 x10^3/uL (140-400); RED BLOOD COUNT 3.73 x10^6/uL (4.30-5.70); RED CELL DISTRIBUTION WIDTH 14.4 % (11.5-14.5); WHITE BLOOD COUNT 13.4 x10^3/uL (4.0-11.0)
[2020-03-30 07:05] LABS: CALCIUM 8.2 mg/dL (8.5-10.1); CREATININE 1.7 mg/dL (0.7-1.3); GFR 50.9
[2020-03-30 07:11] LABS: ALBUMIN 2.6 g/dL (3.4-5.0); ALBUMIN/GLOBULIN RATIO 0.7 (1.0-1.7); TOTAL BILIRUBIN 0.5 mg/dL (0.2-1.0); TOTAL PROTEIN 6.5 g/dL (6.4-8.2)
--- NOTE | 2020-03-30 07:20 | RAD ---
EXAM: CHEST AP ONLY INDICATION: Reason: sob / Spl. Instructions: / History: . TECHNIQUE: Single view COMPARISON: 03/23/2020 chest x-ray FINDINGS: Apical lordotic projection. Apparent increasing cardiac size is likely an artifact of projection. The great vessels appear unremarkable. There is no hilar or mediastinal mass. Peripheral predominant patchy airspace opacities remain present, slightly more conspicuous in the interval at the peripheral left upper lung and lateral right lung base. There is no pleural effusion or pneumothorax. There are no significant osseous abnormalities. IMPRESSION: Apical lordotic projection highlighting the cardiac silhouette, which is borderline enlarged, and patchy airspace opacities bilaterally compatible with atypical pneumonia. Electronically signed by: De Oritz MD (03/30/2020 7:17 AM) [id number]
[2020-03-30 07:29] VITALS: BP 152/81
[2020-03-30] MEDS ORDERED: BENZ100C PO (09:01)
[2020-03-30] MEDS ORDERED: METH4TAB2 PO (09:01)
--- NOTE | 2020-03-30 09:01 | ED.ADGEN ---
Past Medical History Past Medical History: Cancer, Diabetes-Type II, Hypertension, Other Additional Past Medical Histor: leukemia, hx of lump in the neck Past Surgical History: No Surgical History Additional Past Surgical Histo: BILAT SHOULDER,BILAT EYE, CARDIAC STENT, BILAT WRIST, Smoking Status: Former Smoker Alcohol Use: None Drug Use: None General Adult EDM: Chief Complaint: WEAKNESS/GENERALIZED HPI: HPI: Patient is 54-year-old male who presents to the emergency room with generalized fatigue. Patient has known coronavirus. He states for the last 2 or 3 days he has felt very rundown. He does have some shortness of breath, cough, fever. He states he continues to eat and drink. Review of Systems: Review of Systems: Complete ROS is negative unless otherwise documented in HPI Current Medications: Current Medications Medications (Trade) Dose Ordered Sig/Irina Start Time Stop Time Status Last Admin Dose Admin Sodium Chloride 500 ml @ 500 mls/hr 1X ONCE 03/30/20 06:45 03/30/20 07:44 DC 03/30/20 07:32 500 MLS/HR Allergies: Allergies: Allergies Coded Allergies Type Severity Reaction Last Updated Verified No Known Drug Allergies 11/03/13 No Physical Exam: PE: General: Awake, alert, NAD. Well Nourished, well hydrated. Cooperative HEENT: Atraumatic, EOMI, PERRL, airway patent, moist oral mucosa Neck: Supple, trachea midline Respiratory: CTA bilaterally, normal effort, no wheezing/crackles CV: RRR, no murmur, cap refill <2 GI: Soft, nondistended, nontender, no masses MSK: No obvious deformities Skin: Warm, dry, intact Neuro: A&O x3, speech NL, sensory and motor grossly intact, no focal deficits Psych: Normal affect, normal mood, not suicidal or homicidal Current Patient Data: Labs: Laboratory Tests Test 03/30/20 06:41 03/30/20 06:42 Glucose (Fingerstick) 220 mg/dL (70-99) H White Blood Count 13.4 x10^3/uL (4.0-11.0) H Red Blood Count 3.73 x10^6/uL (4.30-5.70) L Hemoglobin 9.6 g/dL (13.0-17.5) L Hematocrit 29.3 % (39.0-53.0) L Mean Corpuscular Volume 79 fL (79-100) Mean Corpuscular Hemoglobin 26 pg (25-35) Mean Corpuscular Hemoglobin Concent 33 g/dL (31-37) Red Cell Distribution Width 14.4 % (11.5-14.5) Platelet Count 203 x10^3/uL (140-400) Neutrophils (%) (Auto) 69 % (31-73) Lymphocytes (%) (Auto) 11 % (24-48) L Monocytes (%) (Auto) 19 % (0-9) H Eosinophils (%) (Auto) 0 % (0-3) Basophils (%) (Auto) 0 % (0-3) Neutrophils # (Auto) 9.2 x10^3/uL (1.8-7.7) H Lymphocytes # (Auto) 1.5 x10^3/uL (1.0-4.8) Monocytes # (Auto) 2.6 x10^3/uL (0.0-1.1) H Eosinophils # (Auto) 0.0 x10^3/uL (0.0-0.7) Basophils # (Auto) 0.0 x10^3/uL (0.0-0.2) Platelet Estimate Pending Sodium Level 134 mmol/L (136-145) L Potassium Level 4.0 mmol/L (3.5-5.1) Chloride Level 100 mmol/L (98-107) Carbon Dioxide Level 24 mmol/L (21-32) Anion Gap 10 (6-14) Blood Urea Nitrogen 21 mg/dL (8-26) Creatinine 1.7 mg/dL (0.7-1.3) H Estimated GFR (Cockcroft-Gault) 50.9 BUN/Creatinine Ratio 12 (6-20) Glucose Level 203 mg/dL (70-99) H Calcium Level 8.2 mg/dL (8.5-10.1) L Total Bilirubin 0.5 mg/dL (0.2-1.0) Aspartate Amino Transferase (AST) 22 U/L (15-37) Alanine Aminotransferase (ALT) 20 U/L (16-63) Alkaline Phosphatase 41 U/L (46-116) L Troponin I Quantitative 0.084 ng/mL (0.000-0.055) DU-Xnx-G-Type Natriuretic Peptide 2003 pg/mL (0-124) H Total Protein 6.5 g/dL (6.4-8.2) Albumin 2.6 g/dL (3.4-5.0) L Albumin/Globulin Ratio 0.7 (1.0-1.7) L Laboratory Tests 03/30/20 06:42 Laboratory Tests 03/30/20 06:42 Vital Signs: Vital Signs Date Time Temp Pulse Resp B/P (MAP) Pulse Ox O2 Delivery O2 Flow Rate FiO2 03/30/20 07:29 94 22 93 03/30/20 06:40 100.3 183/83 (116) Room Air 100.3 EKG: EKG: [] Heart Score: Risk Factors: Risk Factors: DM, Current or recent (<one month) smoker, HTN, HLP, family history of CAD, obesity. Risk Scores: Score 0 - 3: 2.5% MACE over next 6 weeks - Discharge Home Score 4 - 6: 20.3% MACE over next 6 weeks - Admit for Clinical Observation Score 7 - 10: 72.7% MACE over next 6 weeks - Early Invasive Strategies Radiology/Procedures: Radiology/Procedures: [] Course & Med Decision Making: Course & Med Decision Making Pertinent Labs and Imaging studies reviewed. (See chart for details) Patient is a 54-year-old male who presents to the emergency room with fatigue. This is likely secondary to his known coronavirus. Patient was given a small amount of fluids. Labs were checked. Labs are unremarkable. He is not hypoxic here in the emergency room. He would like to go home. We will start him on steroids and cough medicine. Patient's test results and vitals while in the ED were fully reviewed and discussed with the patient. Patient is stable and at this time does not need admission to the hospital. We have discussed strict return precautions and the importance of following up with their Primary Care Ph ysician. Patient stated understanding and was given an opportunity to ask any questions. Patient is in agreement with plan. Bernie Disclaimer: Bernie Disclaimer: This electronic medical record was generated, in whole or in part, using a voice recognition dictation system. Departure Departure Impression: Primary Impression: 2019 novel coronavirus detected Additional Impression: Fatigue Disposition: 01 DC HOME SELF CARE/HOMELESS Condition: IMPROVED Referrals: DENTON MCKEON MD (PCP) Patient Instructions: Fatigue Additional Instructions: Thank you for visiting [facility]. We appreciate you trusting us with your care. If any additional problems come up please don't hesitate to return to visit us. Follow up with your primary care provider so they can plan additional care if needed and know about the problem that you had today. If symp toms worsen come back to the Emergency Department. Any concerning symptoms that start such as chest pain, shortness of air, weakness or numbness on one side of the body, running high fevers or any other concerning symptoms return to the ER. You have a viral syndrome which may include symptoms like muscle aches, fevers, chills, runny nose, cough, sneezing, sore throat, nausea, vomiting, or diarrhea. One of the potential viruses that you may have is SARS-CoV-2, the virus that causes COVID-19, also known as the Coronavirus. You are just as likely to have a different viral infection such as the common cold, flu, etc. Most patients with the Coronavirus have mild symptoms and recover on their own. Resting, staying hydrated, and sleep based on known cases can be helpful. As of todays visit, you are well enough to go home and treat your symptoms with oral fluids and over the counter medications. Coronavirus testing is not performed on most people with mild symptoms who are being discharged from the emergency department. If Coronavirus testing was performed today the results will not be available for possibly up to 3-4 days. If your result is positive you will be contacted. Please follow the following precautions at home: 1. Stay home except to get medical care. 2. As advised by the CDC, we recommend that you stay in your home and minimize contact with other people. We do not want you to spread the infection. 3. Those who are older or have significant medical issues may have more severe symptoms from this infection. We recommend self-isolation FOR AT LEAST 7 DAYS after your 1st day of symptoms. AFTER you feel better please wait AT LEAST ANOTHER WEEK before returning to regular activities and being around other people. 4. IF you become sicker and have difficulty breathing, chest pain, are unable to eat/drink, severe vomiting, diarrhea, or weakness you may need to return to the Emergency Department. 5. You should restrict activities outside of your home, except for getting medical care. DO NOT go to work, school, or public areas. Avoid using public transportation, ride sharing, or taxis. 6. Separate yourself from other people in your home. You should use a separate bathroom if possible. 7. Avoid sharing personal household items such as dishes, cups, eating utensils, towels, etc. 8. Clean all high touch surfaces every day (door knobs, counter tops, etc). Use a household cleaning spray or wipe per label instructions. 9. Clean your hands often. Wash your hands with soap and water for at least 20 seconds. 10. Cover your mouth and nose when you cough or sneeze. 11. Throw used tissues in the trash and immediately wash your hands. For additional resources please visit the CDC website or the [facility] ([phone]), you may also call 211 for further information. Scripts Benzonatate (TESSALON PERLE) 100 Mg Capsule 1 CAP PO TID for cough, #21 CAP Prov: MARY CARMEN BAKER MD 03/30/20 Methylprednisolone (MEDROL) 4 Mg Tab.ds.pk 1 PKG PO UD for inflammation, #1 PKG Prov: MARY CARMEN BAKER MD 03/30/20 Problem Qualifiers MARY CARMEN BAKER MD Mar 30, 2020 09:01
[2020-03-30 12:04] LABS: % ATYL 1 % (0-0); % BANDS 17 % (0-9); % LYMPHS 11 % (24-48); % MONOS 16 % (0-10); % SEGS 55 % (35-66)
[2020-03-30 12:05] LABS: PLT ESTIMATE ADEQUATE (ADEQUATE)
--- NOTE | 2020-03-31 09:32 | EKG ---
[facility] [address] [place] [address] Test Date: 2020-03-30 Test Time: 06:36:23 Pat Name: ISIDRO ZIEGLER Department: Room: Gender: M [employer]: : 1965 Requested By: MARY CARMEN BAKER Order Number: [id number] Reading MD: Measurements Intervals [place] Rate: 99 P: 59 [place]: 162 QRS: 21 QRSD: 84 T: 69 QT: 346 QTc: 449 Interpretive Statements SINUS RHYTHM COMPLEX(ES) WITH ABERRANT INTRAVENTRICULAR CONDUCTION VENTRICULAR PREMATURE COMPLEX(ES) ABNORMAL ECG RI6.02 No previous ECG available for comparison
== END 2020-03-30 09:09 | disposition home or self-care (01) ==
LOC: ER 06:27
DX: U07.1 COVID-19 (principal); R50.9 Fever, unspecified; R53.83 Other fatigue; R06.02 Shortness of breath; E11.9 Type 2 diabetes mellitus without complications; I10 Essential (primary) hypertension; Z87.891 Personal history of nicotine dependence; Z95.5 Presence of coronary angioplasty implant and graft
CPT/HCPCS: 71045; 80053; 82962; 83880; 84484; 85007; 85025; 93005; 96360; 99285; J7040; 36415

== ENCOUNTER → 2020-06-22 | Outpatient (CLI) | payer BC ==
[~2020-06-22] MED LIST changes: +BENZ100C PO; +METH4TAB2 PO; +REGADENOSON 0.4 MG/5 ML DISP.SYRIN. IV ONE
--- NOTE | 2020-06-22 10:28 | RAD ---
MR#: [id number] Date of Study: 06/22/2020 Ordering Physician: MARLEN ORTEGA, Referring Physician: MARLEN ORTEGA, Tech: Obie Gongora MBA, RDMS, RVT, RDCS, RTR APPROVED REPORT Patient Location : OUT-PATIENT Indications Lower Extremity Edema : Left Lesser Saphenous Veins (LSV) Significant venous reflux is noted in the Left LSV. Findings Right great saphenous vein measures 4.1 mm, left great saphenous vein measures 7.1 mm. Bilateral gre ater and lesser saphenous veins did not show any evidence of reflux. Critical Notification Critical Value: No <Conclusion> 1. No significant reflux in the bilateral greater and lesser saphenous veins Signed by : Marlen Ortega, Electronically Approved : 06/22/2020 10:28:21
--- NOTE | 2020-06-22 16:51 | RAD ---
MR#: [id number] Date of Study: 06/22/2020 Ordering Physician: MARLEN ORTEGA, Referring Physician: GERA SHANE Tech: Beatrice Young RT (R) (N) APPROVED REPORT Test Type: Pharmacological Stress Nurse/Tech: Iván Rios RN Test Indications: CAD Cardiac History: CAD, Cath x1 in 2016, See EMR. Medications: ASA, See EMR. Medical History: DM, Asthma, CVA, See EMR. Resting ECG: SR Resting Heart Rate: 69 bpm Resting Blood Pressure: 127/84mmHg Pretest Chest Pain: No chest pain Nurse/Tech Notes Lungs CTA, Heart tones regular. Consent: The procedure was explained to the patient in lay terms. Informed consent was witnessed. Tj eout was entered into [facility]. History and Stress Test performed by [facility]. Details Pharmacologic stress testing was performed using 0.4mg per 5ml of regadenoson given intravenously ove r 7-10 seconds. Stress Symptoms No chest pain or symptoms. POST EXERCISE Reason for Termination: Infusion complete Max HR: 96 bpm Max Blood Pressure: 145/71mmHg Blood Pressure response to exercise: Normal blood pressure response during stress. Heart Rate response to exercise: WNL Chest Pain: No. Arrhythmia: No. ST Change: No. INTERPRETATION Stress EKG Conclusion: The resting EKG shows a sinus rhythm with mild nonspecific ST-T wave changes. The stress EKG shows no significant significant changes from baseline. No EKG evidence of stress-induced ischemia. Imaging Protocol IMAGE PROTOCOL: Rest Tc-99m/stress Tc-99m 1 day Rest: Stress: Viability: Radiopharm.Tc99m BjzigsmfvHo05d Sestamibi Dose10.5mCi 31.2mCi Duration 13min. 13min. Img Date 06/22/2020 06/22/2020 Inj-Img [id number]. 60min. Rest Admin Site:IV - Right AntecubitalAdministrator:[facility] Stress Admin Site: IV - Right AntecubitalAdministrator: [facility] STRESS DATA End Diast. Vol.238.0mlLVEDV index FWO669.0ml End Syst. Vol.164.0mlLVESV index BSA73.0ml Myocardial Qvze276.0gEject. Cbwurzqv64.0% Stress Scores Regional WT3.00Summed WT35.00 Regional WM0.00Summed WM19.00 LV Perfusion The stress images show a mild inferior defect. The rest images show a mild inferior defect. Nuclear imaging shows no reversible ischemia. Nuclear imaging shows a fixed inferior defect suggestive of a previous infarct. Wall Motion LV systolic function appears relatively intact. However calculated ejection fraction is 31% which ap pears inaccurate based on analysis of the patient's images. LV Perf. Quant 17 Seg. SSS6.00 17 Seg. SRS9.00 17 Seg. SDS0.00 Stress Defect Extent (% LAD)7.50Rest Defect Extent (% LAD)14.40Rev. Defect Extent (% LAD)0.00 Stress Defect Extent (% LCX) 3.80Rest Defect Extent (% LCX)10.00Rev. Defect Extent (% LCX)0.00 Stress Defect Extent (% RCA)15.60Rest Defect Extent (% RCA)30.00Rev. Defect Extent (% RCA)0.00 Stress Defect Extent (% DAMARIS)10.90Rest Defect Extent (% DAMARIS)18.50Rev. Defect Extent (% DAMARIS)0.00 Conclusion 1. No EKG evidence of stress-induced ischemia. 2. Nuclear imaging shows no reversible ischemia. 3. Nuclear imaging shows a small fixed inferior defect suggestive of a previous infarct. 4. On imaging LV systolic function appears relatively intact but as noted above it was calculated at 31% which is not consistent with the patient's images. 5. Moderate to moderate low risk incomplete Lexiscan nuclear stress test with no reversible ischemia and a fixed inferior defect. Signed by : Jus Gonzalez MD Electronically Approved : 06/22/2020 16:51:00
--- NOTE | 2020-06-23 10:17 | CARD ---
MR#: [id number] Date of Study: 06/22/2020 Ordering Physician: MANNY DAVENPORT, Referring Physician: MANNY DAVENPORT Tech: Urvashi Calvo [facility] APPROVED REPORT EXAM: Two-dimensional and M-mode echocardiogram with Doppler and color Doppler. Other Information Quality : AverageHR: 57bpm Rhythm : NSR INDICATION CAD 2D DIMENSIONS Left Atrium(2D)5.5 (1.6-4.0cm)IVSd1.1 (0.7-1.1cm) LVDd6.3 (3.9-5.9cm)LVOT Diameter2.5 (1.8-2.4cm) PWd1.2 (0.7-1.1cm)IVSs1.8 (0.8-1.2cm) LVDs4.9 (2.5-4.0cm)FS (%) 22.7 % PWs1.9 (0.8-1.2cm)SV89.6 ml Aortic Valve AoV Peak Clayton.134.9cm/sAoV VTI26.6cm AO Peak GR.7.3mmHgLVOT Peak Clayton.55.3cm/s LVOT VTI 11.05cmAO Mean GR.4mmHg TANO (VMAX)1.11cj5FWV (VTI)2.09cm2 Mitral Valve MV E Sidxxehj51.6cm/sMV DECEL MCIJ881qb MV A Ffgltgpy29.6cm/sMV RQF41fb E/A Ratio0.8MVA (PHT)4.58cm2 TDI E/Lateral E'17.7E/Medial E'14.2 Pulmonary Valve PV Peak Tacgnixf78.7cm/sPV Peak Grad.3mmHg Tricuspid Valve TR P. Drasonni746mu/sTR Peak Gr.28mmHg Pulmonary Vein S1 Mnbfluqa10.0cm/sD2 Sssidyvk53.4cm/s PVa [id number] LEFT VENTRICLE The left ventricle is normal size. There is mild concentric left ventricular hypertrophy. The systoli c function is mildly impaired. Estimated ejection fraction 40-45%. There is mild global hypokinesis o f the left ventricle. Transmitral Doppler flow pattern is Grade II-pseudonormal filling dynamics. No left ventricle thrombus noted on this study. RIGHT VENTRICLE The right ventricle is normal size. There is normal right ventricular wall thickness. The right ventr icular systolic function is normal. ATRIA The left atrium size is normal. The right atrium size is normal. The interatrial septum is intact wit h no evidence for an atrial septal defect or patent foramen ovale as noted on 2-D or Doppler imaging. AORTIC VALVE The aortic valve is normal in structure and function. Doppler and Color Flow revealed no significant aortic regurgitation. There is no significant aortic valvular stenosis. MITRAL VALVE The mitral valve is normal in structure and function. There is no evidence of mitral valve prolapse. There is no mitral valve stenosis. Doppler and Color-flow revealed trace mitral regurgitation. TRICUSPID VALVE The tricuspid valve is normal in structure and function. Doppler and Color Flow revealed trace tricus pid regurgitation. Estimated PAP 32 mmHg. There is no tricuspid valve stenosis. PULMONIC VALVE The pulmonary valve is normal in structure and function. Doppler and Color Flow revealed no pulmonic valvular regurgitation. GREAT VESSELS The aortic root is normal in size. The ascending aorta is normal in size. The IVC is normal in size a nd collapses >50% with inspiration. PERICARDIAL EFFUSION There is no evidence of significant pericardial effusion. Critical Notification Critical Value: No <Conclusion> The left ventricle is normal size. The systolic function is mildly impaired. Estimated ejection fraction 40-45%. There is mild global hypokinesis of the left ventricle. There is mild concentric left ventricular hypertrophy. Doppler and Color Flow revealed no significant aortic regurgitation. There is no significant aortic valvular stenosis. Doppler and Color-flow revealed trace mitral regurgitation. Doppler and Color Flow revealed trace tricuspid regurgitation. Estimated PAP 32 mmHg. Signed by : Jus Gonzalez MD Electronically Approved : 06/23/2020 10:17:19
== END ==
LOC: NM 08:30
PROVIDERS: ATTEND Internal Medicine Cardiovascular Disease
DX: I51.7 Cardiomegaly (principal); I25.10 Atherosclerotic heart disease of native coronary artery without angina pectoris; I87.2 Venous insufficiency (chronic) (peripheral); E11.9 Type 2 diabetes mellitus without complications; J45.909 Unspecified asthma, uncomplicated; Z86.73 Personal history of transient ischemic attack (TIA), and cerebral infarction without residual deficits
CPT/HCPCS: 78452; 93017; 93306; 93970; A9500; J2785

== ENCOUNTER → 2020-08-03 | Outpatient (CLI) | payer BC ==
[~2020-08-03] MED LIST changes: -REGADENOSON 0.4 MG/5 ML DISP.SYRIN. IV ONE
--- NOTE | 2020-08-03 13:01 | RAD ---
AP Internal and external rotation views with Y-View of the left shoulder were performed. Indication: Left-sided shoulder pain, history of leukemia Comparison: None. No fracture, glenohumeral or AC joint subluxation, or significant degenerative changes are seen. The subacromial space is maintained. Impression: 1. Unremarkable exam of the left shoulder. Electronically signed by: Rylan Porras MD (08/03/2020 12:59 PM) [id number]
--- NOTE | 2020-08-03 13:32 | RAD ---
XR CERVICAL SPINE 4-5V History: Reason: Neck Pain, lt shoulder pain / Spl. Instructions: / History: Technique: 5 views cervical spine. Comparison: None. Findings: Straightening the normal cervical lordosis. Normal vertebral body height. No fracture. Multilevel deg enerative disc changes most prominent moderate C5-C6. Prevertebral soft tissues unremarkable. No high-grade bony neuroforaminal narrowing. Vascular calcifi cations. Normal alignment C1 on C2. Impression: 1. No acute osseous abnormality. 2. Multilevel cervical spondylosis most prominent C5-C6. Electronically signed by: Mina Avendaño DO (08/03/2020 1:30 PM) [id number]
== END ==
LOC: RAD 11:57
PROVIDERS: ATTEND Internal Medicine Hematology & Oncology
DX: M47.812 Spondylosis without myelopathy or radiculopathy, cervical region (principal)
CPT/HCPCS: 72050; 73030

== ENCOUNTER → 2020-08-03 | Outpatient (CLI) | payer BC ==
[2020-08-03 12:04] LABS: BASO # 0.1 x10^3/uL (0.0-0.2); BASO % 1 % (0-3); EOS # 0.3 x10^3/uL (0.0-0.7); EOS % 2 % (0-3); HEMATOCRIT 37.3 % (39.0-53.0); HEMOGLOBIN 12.1 g/dL (13.0-17.5); LYMPH # 4.9 x10^3/uL (1.0-4.8); LYMPH % 38 % (24-48); MEAN CORPUSCULAR HEMOGLOBIN 26 pg (25-35); MEAN CORPUSCULAR HGB CONC 33 g/dL (31-37); MEAN CORPUSCULAR VOLUME 78 fL (79-100); MONO # 1.2 x10^3/uL (0.0-1.1); MONO % 10 % (0-9); NEUT # 6.4 x10^3/uL (1.8-7.7); NEUT % 50 % (31-73); PLATELET COUNT 243 x10^3/uL (140-400); RED BLOOD COUNT 4.75 x10^6/uL (4.30-5.70); RED CELL DISTRIBUTION WIDTH 15.2 % (11.5-14.5); WHITE BLOOD COUNT 12.9 x10^3/uL (4.0-11.0)
[2020-08-03 12:11] LABS: CALCIUM 8.6 mg/dL (8.5-10.1); GFR 42.2; POTASSIUM 4.6 mmol/L (3.5-5.1)
[2020-08-03 12:17] LABS: ALBUMIN 3.5 g/dL (3.4-5.0); ALBUMIN/GLOBULIN RATIO 0.9 (1.0-1.7); TOTAL BILIRUBIN 0.3 mg/dL (0.2-1.0); TOTAL PROTEIN 7.2 g/dL (6.4-8.2)
== END ==
LOC: ONCLAB 11:41
PROVIDERS: ATTEND Internal Medicine Hematology & Oncology
DX: C91.10 Chronic lymphocytic leukemia of B-cell type not having achieved remission (principal)
CPT/HCPCS: 36415; 80053; 85025

== ENCOUNTER → 2020-08-09 | Outpatient (CLI) | payer BC ==
--- NOTE | 2020-08-09 19:50 | RAD ---
Exam: Ultrasound renal complete Indication: Chronic kidney disease Technique: Real-time grayscale and color Doppler images of the kidneys were obtained by [facility]. Comparisons: None FINDINGS: Right kidney measures 11.7 cm in length. No hydronephrosis. Left kidney measures 11.7 cm in length. No hydronephrosis. Bladder is partially distended and appears thin-walled. Increased echogenicity of the liver is noted. Visual is portions of aorta and IVC are unremarkable. IMPRESSION: 1. No hydronephrosis. 2. Incidental is not increased echogenicity liver, may relate to hepatic steatosis. Electronically signed by: Ricci Mccallum MD (08/09/2020 7:47 PM) [facility]
== END ==
LOC: US 12:52
PROVIDERS: ATTEND Nurse Practitioner Adult Health
DX: N18.32 Chronic kidney disease, stage 3b (principal); N32.89 Other specified disorders of bladder
CPT/HCPCS: 76770

== ENCOUNTER → 2020-08-24 | Outpatient (CLI) | payer BC ==
[2020-08-24 09:25] LABS: BASO # 0.1 x10^3/uL (0.0-0.2); BASO % 2 % (0-3); EOS # 0.1 x10^3/uL (0.0-0.7); EOS % 2 % (0-3); HEMATOCRIT 35.3 % (39.0-53.0); HEMOGLOBIN 11.6 g/dL (13.0-17.5); LYMPH # 2.4 x10^3/uL (1.0-4.8); LYMPH % 28 % (24-48); MEAN CORPUSCULAR HEMOGLOBIN 26 pg (25-35); MEAN CORPUSCULAR HGB CONC 33 g/dL (31-37); MEAN CORPUSCULAR VOLUME 78 fL (79-100); MONO # 1.4 x10^3/uL (0.0-1.1); MONO % 17 % (0-9); NEUT # 4.4 x10^3/uL (1.8-7.7); NEUT % 52 % (31-73); PLATELET COUNT 217 x10^3/uL (140-400); RED BLOOD COUNT 4.51 x10^6/uL (4.30-5.70); RED CELL DISTRIBUTION WIDTH 15.5 % (11.5-14.5); WHITE BLOOD COUNT 8.4 x10^3/uL (4.0-11.0)
[2020-08-24 09:33] LABS: CALCIUM 9.1 mg/dL (8.5-10.1); CREATININE 1.9 mg/dL (0.7-1.3); GFR 44.8; POTASSIUM 4.3 mmol/L (3.5-5.1)
[2020-08-24 09:38] LABS: ALBUMIN 3.6 g/dL (3.4-5.0); ALBUMIN/GLOBULIN RATIO 1.1 (1.0-1.7); TOTAL BILIRUBIN 0.4 mg/dL (0.2-1.0); TOTAL PROTEIN 6.9 g/dL (6.4-8.2)
== END ==
LOC: ONCLAB 09:06
PROVIDERS: ATTEND Internal Medicine Hematology & Oncology
DX: C91.10 Chronic lymphocytic leukemia of B-cell type not having achieved remission (principal)
CPT/HCPCS: 36415; 80053; 85025

== ENCOUNTER → 2020-09-14 | Outpatient (CLI) | payer BC ==
[2020-09-14 10:17] LABS: BASO # 0.1 x10^3/uL (0.0-0.2); BASO % 1 % (0-3); EOS # 0.3 x10^3/uL (0.0-0.7); EOS % 3 % (0-3); HEMATOCRIT 36.7 % (39.0-53.0); HEMOGLOBIN 12.1 g/dL (13.0-17.5); LYMPH # 3.8 x10^3/uL (1.0-4.8); LYMPH % 38 % (24-48); MEAN CORPUSCULAR HEMOGLOBIN 25 pg (25-35); MEAN CORPUSCULAR HGB CONC 33 g/dL (31-37); MEAN CORPUSCULAR VOLUME 77 fL (79-100); MONO # 0.7 x10^3/uL (0.0-1.1); MONO % 7 % (0-9); NEUT # 5.2 x10^3/uL (1.8-7.7); NEUT % 52 % (31-73); PLATELET COUNT 267 x10^3/uL (140-400); RED BLOOD COUNT 4.76 x10^6/uL (4.30-5.70); RED CELL DISTRIBUTION WIDTH 16.3 % (11.5-14.5); WHITE BLOOD COUNT 10.1 x10^3/uL (4.0-11.0)
[2020-09-14 10:47] LABS: CALCIUM 8.9 mg/dL (8.5-10.1); CREATININE 1.7 mg/dL (0.7-1.3); GFR 50.9; POTASSIUM 4.5 mmol/L (3.5-5.1)
[2020-09-14 10:53] LABS: ALBUMIN 3.7 g/dL (3.4-5.0); ALBUMIN/GLOBULIN RATIO 1.2 (1.0-1.7); TOTAL BILIRUBIN 0.4 mg/dL (0.2-1.0); TOTAL PROTEIN 6.9 g/dL (6.4-8.2)
== END ==
LOC: ONCLAB 09:56
PROVIDERS: ATTEND Internal Medicine Hematology & Oncology
DX: C91.10 Chronic lymphocytic leukemia of B-cell type not having achieved remission (principal)
CPT/HCPCS: 36415; 80053; 83615; 85025

== ENCOUNTER → 2020-10-12 | Outpatient (CLI) | payer BC ==
[2020-10-12 11:03] LABS: BASO # 0.1 x10^3/uL (0.0-0.2); BASO % 1 % (0-3); EOS # 0.2 x10^3/uL (0.0-0.7); EOS % 2 % (0-3); HEMATOCRIT 36.3 % (39.0-53.0); LYMPH # 3.9 x10^3/uL (1.0-4.8); LYMPH % 33 % (24-48); MEAN CORPUSCULAR HEMOGLOBIN 26 pg (25-35); MEAN CORPUSCULAR HGB CONC 33 g/dL (31-37); MEAN CORPUSCULAR VOLUME 78 fL (79-100); MONO # 1.1 x10^3/uL (0.0-1.1); MONO % 9 % (0-9); NEUT # 6.6 x10^3/uL (1.8-7.7); NEUT % 56 % (31-73); PLATELET COUNT 209 x10^3/uL (140-400); RED BLOOD COUNT 4.64 x10^6/uL (4.30-5.70); RED CELL DISTRIBUTION WIDTH 16.9 % (11.5-14.5); WHITE BLOOD COUNT 11.9 x10^3/uL (4.0-11.0)
[2020-10-12 11:08] LABS: CREATININE 2.3 mg/dL (0.7-1.3); GFR 35.8; POTASSIUM 4.2 mmol/L (3.5-5.1)
[2020-10-12 11:15] LABS: ALBUMIN 3.9 g/dL (3.4-5.0); ALBUMIN/GLOBULIN RATIO 1.2 (1.0-1.7); TOTAL BILIRUBIN 0.5 mg/dL (0.2-1.0); TOTAL PROTEIN 7.1 g/dL (6.4-8.2)
== END ==
LOC: ONCLAB 10:30
PROVIDERS: ATTEND Internal Medicine Hematology & Oncology
DX: C91.10 Chronic lymphocytic leukemia of B-cell type not having achieved remission (principal)
CPT/HCPCS: 36415; 80053; 83615; 85025

== ENCOUNTER → 2020-11-16 | Outpatient (CLI) | payer BC ==
[2020-11-16 11:36] LABS: BASO # 0.1 x10^3/uL (0.0-0.2); BASO % 1 % (0-3); EOS # 0.2 x10^3/uL (0.0-0.7); EOS % 3 % (0-3); HEMATOCRIT 36.1 % (39.0-53.0); HEMOGLOBIN 11.8 g/dL (13.0-17.5); LYMPH # 2.8 x10^3/uL (1.0-4.8); LYMPH % 33 % (24-48); MEAN CORPUSCULAR HEMOGLOBIN 26 pg (25-35); MEAN CORPUSCULAR HGB CONC 33 g/dL (31-37); MEAN CORPUSCULAR VOLUME 81 fL (79-100); MONO # 0.7 x10^3/uL (0.0-1.1); MONO % 8 % (0-9); NEUT # 4.9 x10^3/uL (1.8-7.7); NEUT % 56 % (31-73); PLATELET COUNT 218 x10^3/uL (140-400); RED BLOOD COUNT 4.46 x10^6/uL (4.30-5.70); RED CELL DISTRIBUTION WIDTH 17.2 % (11.5-14.5); WHITE BLOOD COUNT 8.7 x10^3/uL (4.0-11.0)
[2020-11-16 11:46] LABS: CALCIUM 8.9 mg/dL (8.5-10.1); CREATININE 2.3 mg/dL (0.7-1.3); GFR 35.8; POTASSIUM 4.3 mmol/L (3.5-5.1)
[2020-11-16 11:52] LABS: ALBUMIN 3.4 g/dL (3.4-5.0); TOTAL BILIRUBIN 0.3 mg/dL (0.2-1.0); TOTAL PROTEIN 6.7 g/dL (6.4-8.2)
== END ==
LOC: ONCLAB 10:47
PROVIDERS: ATTEND Physician Assistant
DX: C91.10 Chronic lymphocytic leukemia of B-cell type not having achieved remission (principal)
CPT/HCPCS: 36415; 80053; 83615; 85025

== ENCOUNTER → 2020-12-15 | Outpatient (CLI) | payer BC ==
[2020-12-15 10:46] LABS: BASO # 0.1 x10^3/uL (0.0-0.2); BASO % 1 % (0-3); EOS # 0.2 x10^3/uL (0.0-0.7); EOS % 2 % (0-3); HEMATOCRIT 37.4 % (39.0-53.0); HEMOGLOBIN 12.6 g/dL (13.0-17.5); LYMPH % 35 % (24-48); MEAN CORPUSCULAR HEMOGLOBIN 27 pg (25-35); MEAN CORPUSCULAR HGB CONC 34 g/dL (31-37); MEAN CORPUSCULAR VOLUME 80 fL (79-100); MONO # 0.9 x10^3/uL (0.0-1.1); MONO % 10 % (0-9); NEUT # 4.6 x10^3/uL (1.8-7.7); NEUT % 52 % (31-73); PLATELET COUNT 202 x10^3/uL (140-400); RED CELL DISTRIBUTION WIDTH 15.9 % (11.5-14.5); WHITE BLOOD COUNT 8.8 x10^3/uL (4.0-11.0)
[2020-12-15 11:03] LABS: CALCIUM 8.9 mg/dL (8.5-10.1); POTASSIUM 4.5 mmol/L (3.5-5.1)
[2020-12-15 11:09] LABS: ALBUMIN 3.5 g/dL (3.4-5.0); TOTAL BILIRUBIN 0.3 mg/dL (0.2-1.0)
== END ==
LOC: ONCLAB 10:27
PROVIDERS: ATTEND Physician Assistant
DX: C91.10 Chronic lymphocytic leukemia of B-cell type not having achieved remission (principal)
CPT/HCPCS: 36415; 80053; 83615; 85025

== ENCOUNTER → 2021-09-11 | Outpatient (CLI) | payer MEDICARE, BC ==
--- NOTE | 2021-09-11 12:56 | RAD ---
EXAM: CT NECK SOFT TISSUES WITHOUT CONTRAST. HISTORY: Right submandibular mass. TECHNIQUE: Computed tomography of the neck soft tissues was performed without intravenous contrast. O ne or more of the following individualized dose reduction techniques were utilized for this examinati on: 1. Automated exposure control. 2. Adjustment of the mA and/or kV according to patient size. 3. Use of iterative reconstruction technique. COMPARISON: None. FINDINGS: Images of the lung apices reveal mild atelectasis or scarring. Bone windows reveal no suspi cious lesions. A right submandibular lymph node measures 1.3 x 0.9 cm and has a diminished fatty hilus. Another maury larly sized lymph nodes bilaterally have preserved fatty lillie. No other submandibular mass is identif ied. The right submandibular gland appears normal. The left is atrophic or absent. Both parotid gland s are unremarkable. The thyroid gland reveals no focal lesions. There are no clear laryngeal or pharyngeal masses. There are no pathologically enlarged lymph nodes elsewhere. IMPRESSION: 1. The palpable right submandibular focus likely corresponds with an enlarged right submandibular lym ph node. No additional mass is identified. Correlate for reactive etiologies. Ongoing follow-up of pa lpable foci is recommended. Sonography could follow-up in 3 months, versus ultrasound guided biopsy i f it persists or progresses. Electronically signed by: Claudine Loving MD (09/11/2021 12:54 PM) [id number]
== END ==
LOC: CT 10:44
PROVIDERS: ATTEND Internal Medicine Hematology & Oncology
DX: C91.10 Chronic lymphocytic leukemia of B-cell type not having achieved remission (principal)
CPT/HCPCS: 70490